=== PATIENT | male | born 1960 | race Caucasian/White ===

== ENCOUNTER 2020-01-29 18:10 | Inpatient (IN) | payer OTHER, SELFPAY ==
[2020-01-29 18:14] VITALS: BP 188/107; PULSE 88; RESP 18; TEMP 36.6; O2SAT 100
--- NOTE | 2020-01-29 18:53 | ED_ITS ---
HPI - Abdominal Pain General Chief Complaint: Abdominal Pain Stated Complaint: STOMACH PAIN Time Seen by Provider: 01/29/20 18:53 Source: patient Mode of arrival: Ambulatory Limitations: no limitations History of Present Illness HPI narrative: 59-year-old male comes to the emergency department with complaint of abdominal pain. He states it has been intermittent since Wednesday. He states it was worse Wednesday and has been slowly improving. He had several hours of pain, he felt feverish that evening. He had some nausea but no vomiting. He thought he might be constipated took some laxatives had a normal soft bowel movement that following morning on Wednesday. Followed by that he has been pushing a clear liquid diet and has had a liquidy watery stool. He has occasionally had a small amount of blood but states this is typical that he has known hemorrhoids. He has not had any melena. He has not had any further nausea or vomiting. He has not had any more fevers symptoms or chills. He has not had any cold cough or congestive type symptoms. No chest pain or shortness of breath. He had similar symptoms a couple times in the past. He also states that he has had the sensation that sometimes hard to urinate but is able to urinate. Sort of has intensity type symptom. No dysuria, frequency or or i ncontinence. Related Data Home Medications Medication Instructions Recorded Confirmed atorvastatin 40 mg PO DAILY 01/30/20 01/30/20 Allergies Allergy/AdvReac Type Severity Reaction Status Date / Time No Known Drug Allergies Allergy Verified 01/29/20 18:25 Review of Systems Review of Systems ROS Unobtainable: All systems reviewed & are unremarkable except as noted in HPI and below Patient History Social History (Updated 01/29/20 @ 19:05 by Carlene Up DO) household members: spouse Smoking Status: Current some day smoker alcohol intake: never substance use type: marijuana Smoking Status: Former smoker Alcohol type: other Substance Use Type: marijuana Exam Narrative Exam Narrative: GENERAL: Alert and oriented x three, thin, well-appearing male in mild distress. HEENT: Head normocephalic, atraumatic, EOMI, pupils reactive, face symmetric, moist mucous membranes NECK: Supple, full range of motion CARDIOVASCULAR: Regular rate and rhythm without murmurs, rubs or gallops. RESPIRATORY: Breath sounds equal bilaterally, no wheezes rales or rhonchi. ABDOMEN: Soft, very mild suprapubic tenderness. Normoactive bowel sounds all 4 quadrants. No guarding or rebound, rigidity, no mass, no hernia noted. : No CVA tenderness EXTREMITIES: Normal range of motion, no clubbing or edema. Neurovascularly intact NEUROLOGICAL: Cranial nerves II through XII grossly intact. Moving all extremities SKIN: Warm, dry, no petechiae, no rashes or lesions. Initial Vital Signs Initial Vital Signs: Vital Signs Temperature 97.9 F 01/29/20 18:14 Pulse Rate 88 01/29/20 18:14 Respiratory Rate 18 01/29/20 18:14 Blood Pressure 188/107 H 01/29/20 18:14 Pulse Oximetry 100 01/29/20 18:14 Course Orders Ordered: ED Orders 01/29/20 19:01 CT abdomen pelvis w con Stat 01/29/20 19:30 Complete Blood Count AUTO DIFF Stat Comprehensive Metabolic Panel Stat Lipase Stat Procalcitonin Stat Acetaminophen (Tylenol) 650 mg PO Q6HR PRN PRN Reason: Fever/Mild Pain (1-3) Sodium Chloride (Normal Saline 0.9%) 1,000 mls @ 125 mls/hr IV CONT RENA Last Infusion: 01/29/20 22:04 Dose: 125 mls/hr Documented by: Admin: 01/29/20 21:27 Dose: 125 mls/hr Documented by: YOSHI Influenza Virus Vaccine (Flu Vaccine) 0.5 ml IM .ONCE ONE Stop: 01/30/20 09:01 Morphine Sulfate (Morphine) 2 mg IV Q4HR PRN PRN Reason: Pain, Mild (1-3) Last Admin: 01/30/20 00:32 Dose: 2 mg Documented by: NATALIE Ondansetron HCl (Zofran) 4 mg IV Q4HR PRN PRN Reason: Nausea And Vomiting Discontinued Medications Piperacillin/Tazobactam/Dextrose (Zosyn) 3.375 gm in 50 mls @ 100 mls/hr IV NOW ONE Stop: 01/29/20 21:44 Last Infusion: 01/29/20 22:04 Dose: 0 mls/hr Documented by: Admin: 01/29/20 21:27 Dose: 100 mls/hr Documented by: YOSHI Vital Signs Vital signs: Vital Signs - 8 hr 01/29/20 18:14 Temperature 97.9 F Pulse Rate 88 Respiratory Rate 18 Blood Pressure 188/107 H Pulse Oximetry 100 MDM - Abdominal Pain Lab Data Attestation: I reviewed the patient's lab results. Result diagrams: 01/29/20 19:30 01/29/20 19:30 Labs: Lab Results 01/29/20 01/29/20 01/29/20 Range/Units 19:30 19:30 19:30 WBC 7.6 (4.5-11.0) X10^3/uL RBC 4.61 (4.5-5.9) X10^6/uL Hgb 14.2 (13.5-17.5) g/dL Hct 41.4 (41-53) % MCV 90.0 (80-100) fL MCH 30.9 (26-34) PG MCHC 34.4 (30-36) % RDW 13.6 (11.6-14.8) % Plt Count 402 H (150-400) X10^3/uL Neut % (Auto) 71.0 (50-75) % Lymph % (Auto) 18.3 L (25-40) % [place] % (Auto) 8.3 (3-14) % Eos % (Auto) 1.4 L (2-4) % Baso % (Auto) 1.0 (0-2) % Neut # (Auto) 5400 (5311-0092) /uL Lymph # (Auto) 1400 (6437-2007) /uL [place] # (Auto) 600 (0-900) /uL Eos # (Auto) 100 (0-450) /uL Baso # (Auto) 100 (0-100) /uL Sodium 138 (137-145) mmol/L Potassium 3.6 (3.4-5.1) mmol/L Chloride 103 (98-107) mmol/L Carbon Dioxide 28 (22-32) mmol/L BUN 7 L (9-20) mg/dL Creatinine 0.60 L (0.66-1.25) mg/dL Estimated GFR > 60.0 (>60) mL/min BUN/Creatinine Ratio 11.7 (6-22) Glucose 89 (70-100) mg/dL Calcium 9.7 (8.4-10.2) mg/dL Total Bilirubin 0.4 (0.2-1.3) mg/dL AST 28 (17-59) IU/L ALT 16 (<50) IU/L Alkaline Phosphatase 84 (38-126) U/L Total Protein 7.9 (6.3-8.2) g/dL Albumin 4.4 (3.5-5.0) g/dL Globulin 3.5 (1.7-4.1) g/dL Albumin/Globulin Ratio 1.3 (1.0-2.8) Lipase 38 (23-300) U/L Procalcitonin < 0.05 (<0.5) ng/mL Point of care testing: Urine Dip Bedside Urine Glucose Negative Bedside Urine Bilirubin - Negative Bedside Urine Ketone - Negative Urine Specific [place] 1.010 Bedside Urine Occult Blood - Negative Bedside Urine pH 6.0 Bedside Urine Protein - Negative Bedside Urine Urobilinogen - Negative Bedside Urine Nitrite - Negative Bedside Urine Leukocytes - Negative Esterase Imaging Data CT scan - abdomen/pelvis: Radiologist's Impression: [address] [address] [address] Scan Report Signed Patient: Roldan Cortés TMR#: [id number] : 2Acct:[id number] Age/Sex: 59 / MDate of Service: 01/29/20 Loc: ED Accession Number: [id number] Procedure: CT abdomen pelvis w con Ordering Provider: Carlene Up D.O. PROCEDURE: CT ABDOMEN PELVIS W CON INDICATIONS: lower abd pain, intermittent, water stools, ? diverticulitis TECHNIQUE: After the administration of intravenous contrast, 5 mm thick sections acquired from the diaphragm to the symphysis. 5 mm coronal and sagittal reformats were acquired. For radiation dose reduction, the following was used: automated exposure control, adjustment of mA and/or kV according to patient size. COMPARISON: None. FINDINGS: Image quality: Excellent. ABDOMEN: Lung bases: Lung bases are clear. Heart size is normal. Solid organs: Liver is normal in size and enhancement. Within the liver to apparent cysts are found, the larger of which is located within the left lateral hepatic segment superiorly measuring 1.3 cm and the smaller of which is subcentimeter within the right posterior hepatic segment inferiorly. No solid hepatic masses are seen. Gallbladder appears normal. Biliary system is non dilated. Pancreas enhances normally. Spleen is normal in size and enhancement. No adrenal nodules. Kidneys demonstrate normal size and enhancement, without hydronephrosis. Peritoneum and bowel: Bowel loops demonstrate normal wall thickness and caliber. No free fluid or air. Nodes and vessels: No retroperitoneal or mesenteric adenopathy by size criteria. Aorta and inferior vena cava are normal in size. Miscellaneous: No ventral hernias. PELVIS: Genitourinary: Bladder wall thickness is normal. Miscellaneous: No inguinal hernias or adenopathy. At the right lower quadrant a normal or abnormal appendix cannot be located but there is a inflammatory mass like structure in the expected position of the appendix. The cecum and ileocecal valve cannot be differentiated, and the terminal ileum appears mildly wall thickening. All of these findings may represent sequela of perforated appendicitis, and there is definite peritoneal inflammation and enhancement immediately below this area of abnormality the overall measures up to 6.9 cm transverse and 3.8 cm AP with a craniocaudad dimension also approximately 4 cm. Bones: No suspicious bony lesions. No vertebral body compression fractures. IMPRESSION: The right lower quadrant contains a finding that most likely is inflammatory in origin, and may represent sequela of perforated appendicitis. A normal or abnormal appendix could not be located. Correlation with laboratory tests is recommended to determine whether evidence of infection is present. The appearance conceivably could represent a manifestation of cecal or appendiceal carcinoma, however. Dictated by: Jaquan Armando M.D. on 01/29/2020 at 20:47 Approved by: Jaquan Armando M.D. on 01/29/2020 at 20:54 MDM Narrative Medical decision making narrative: Spoke with Dr. West, patient's labs are negative as well as urine. CT shows inflammatory masslike structure in the expected position of the appendix the terminal ileum shows mildly wall thickenin g. Could represent sequela of a perforated appendicitis and there is peritoneal inflammation enhancement in area of 6.9 cm x 3.8 x 4 cm. With patient's increased pain on Wednesday and then slowly improving this would fit. There is also discussion of possibly carcinoma on CT imaging. Discussed with Dr. West patient's labs do not show any clear signs of infection, urine is negative and CT findings. Plan to start IV antibiotics, Dr. West will see the patient in the hospital he asked for patient to be NPO after midnight as there is potential for surgery and will further evaluate patient. Discharge Plan Departure Patient Disposition: Admitted as Observation Clinical Impression: Perforated appendicitis Discharge Date/Time: 01/29/20 22:05 Admit Date/Time: 01/29/20 21:30 Admit Provider: Sammy West
--- NOTE | 2020-01-29 19:01 | DI.CT.S_ITS ---
PROCEDURE: CT ABDOMEN PELVIS W CON INDICATIONS: lower abd pain, intermittent, water stools, ? diverticulitis TECHNIQUE: After the administration of intravenous contrast, 5 mm thick sections acquired from the diaphragm to the symphysis. 5 mm coronal and sagittal reformats were acquired. For radiation dose reduction, the following was used: automated exposure control, adjustment of mA and/or kV according to patient size. COMPARISON: None. FINDINGS: Image quality: Excellent. ABDOMEN: Lung bases: Lung bases are clear. Heart size is normal. Solid organs: Liver is normal in size and enhancement. Within the liver to apparent cysts are found, the larger of which is located within the left lateral hepatic segment superiorly measuring 1.3 cm and the smaller of which is subcentimeter within the right posterior hepatic segment inferiorly. No solid hepatic masses are seen. Gallbladder appears normal. Biliary system is non dilated. Pancreas enhances normally. Spleen is normal in size and enhancement. No adrenal nodules. Kidneys demonstrate normal size and enhancement, without hydronephrosis. Peritoneum and bowel: Bowel loops demonstrate normal wall thickness and caliber. No free fluid or air. Nodes and vessels: No retroperitoneal or mesenteric adenopathy by size criteria. Aorta and inferior vena cava are normal in size. Miscellaneous: No ventral hernias. PELVIS: Genitourinary: Bladder wall thickness is normal. Miscellaneous: No inguinal hernias or adenopathy. At the right lower quadrant a normal or abnormal appendix cannot be located but there is a inflammatory mass like structure in the expected position of the appendix. The cecum and ileocecal valve cannot be differentiated, and the terminal ileum appears mildly wall thickening. All of these findings may represent sequela of perforated appendicitis, and there is definite peritoneal inflammation and enhancement immediately below this area of abnormality the overall measures up to 6.9 cm transverse and 3.8 cm AP with a craniocaudad dimension also approximately 4 cm. Bones: No suspicious bony lesions. No vertebral body compression fractures. IMPRESSION: The right lower quadrant contains a finding that most likely is inflammatory in origin, and may represent sequela of perforated appendicitis. A normal or abnormal appendix could not be located. Correlation with laboratory tests is recommended to determine whether evidence of infection is present. The appearance conceivably could represent a manifestation of cecal or appendiceal carcinoma, however. Dictated by: Jaquan Armando M.D. on 01/29/2020 at 20:47 Approved by: Jaquan Armando M.D. on 01/29/2020 at 20:54
[2020-01-29 19:38] LABS: Add Manual Diff / Slide Review NO; Basophils Absolute Auto 100 /uL (0-100); Eosinophils Absolute Auto 100 /uL (0-450); Eosinophils Percent Auto 1.4 % (2-4); Hematocrit 41.4 % (41-53); Hemoglobin 14.2 g/dL (13.5-17.5); Lymphocytes Absolute Auto 1400 /uL (1100-4500); Lymphocytes Percent Auto 18.3 % (25-40); Mean Corpuscular HGB Conc 34.4 % (30-36); Mean Corpuscular Hemoglobin 30.9 PG (26-34); Monocytes Absolute Auto 600 /uL (0-900); Monocytes Percent Auto 8.3 % (3-14); Neutrophils Absolute Auto 5400 /uL (1500-7000); Platelet Count 402 X10^3/uL (150-400); Red Blood Cell Count 4.61 X10^6/uL (4.5-5.9); Red Cell Distribution Width 13.6 % (11.6-14.8); White Blood Cell Count 7.6 X10^3/uL (4.5-11.0)
[2020-01-29 19:53] LABS: Alanine Aminotransferase 16 IU/L (<50); Albumin 4.4 g/dL (3.5-5.0); Albumin Globulin Ratio 1.3 (1.0-2.8); Alkaline Phosphatase 84 U/L (38-126); Aspartate Aminotransferase 28 IU/L (17-59); BUN Creatinine Ratio 11.7 (6-22); Bilirubin Total 0.4 mg/dL (0.2-1.3); Blood Urea Nitrogen 7 mg/dL (9-20); Calcium 9.7 mg/dL (8.4-10.2); Carbon Dioxide 28 mmol/L (22-32); Chloride 103 mmol/L (98-107); Estimated Glomerular Filt Rate > 60.0 mL/min (>60); Globulin 3.5 g/dL (1.7-4.1); Glucose 89 mg/dL (70-100); HEMOLYSIS < 15 (0-50); Lipase 38 U/L (23-300); Potassium 3.6 mmol/L (3.4-5.1); Sodium 138 mmol/L (137-145); Total Protein 7.9 g/dL (6.3-8.2)
[2020-01-29 20:10] LABS: Procalcitonin < 0.05 ng/mL (<0.5)
[2020-01-29] MEDS: PIPERACILLIN-TAZO 3.375 GM/50 ML FROZ.PIGGY IV (21:27)
[2020-01-29] MEDS: SODIUM CHLORIDE 0.9% 1,000 ML 125 ML IV (21:27)
[2020-01-29 21:33] VITALS: BP 179/87; PULSE 67; RESP 16; O2SAT 100
[2020-01-29 22:05] VITALS: BP 161/103; PULSE 74; RESP 18; TEMP 37.1; O2SAT 97
[2020-01-29 22:25] VITALS: BMI 25.0
--- NOTE | 2020-01-29 22:52 | PC.NURSE ---
Admit note: Roldan brought to rm 212 from ER via wheelchair, ambulatory, gait steady. He states he goes by Dewey. Patient actively walking in room & to BR to change into gown. He appears anxious but calm. BP 161/103, other VS stable. Will allow rest period before rechecking his BP. Dewey reports abdomen pain sometimes it is shooting pain, rating at 2/10. Said it was really bad when I had my episode last Wednesday but less pain since. Reports pain since last wednesday, no emesis. States last BM was yesterday, and it was liquid. Reports last real meal he had was last wednesday, since then taking in mostly liquids and occasional prune juice.
[2020-01-30] VITALS (22 sets, daily range): BP systolic 116–195; BP diastolic 64–105; PULSE 66–113; RESP 16–35; TEMP 36.2–37.3; O2SAT 94–100; BMI 25.0
--- NOTE | 2020-01-30 | PATH_ITS ---
[facility] Accession Number: [id number] . 01 Material submitted: . appendix - APPENDIX . 01 Clinical history: . STOMACH PAIN . 02 Diagnosis: Appendix, Appendectomy: Periappendicitis and serositis with reactive features. Please see comment. [facility] 02/05/2020 1330 Local . 02 Comment: The appendix is received intact, per gross examination, with multiple, separate pieces of inflamed adipose tissue. There is extensive periappendicitis and serositis, but no definite appendicitis in these sections (specimen entirely submitted). The features are suggestive of, but not diagnostic of, ruptured appendicitis. Other sources of an inflammatory process cannot be completely excluded. Please correlate this report with clinical and imaging findings. . Dr. West's office not accessible to report results as of 4:38 p.m. on 02-05-20. . 02 Electronically signed: . Pat Montiel MD, Pathologist NPI- [id number] . 01 Gross description: . Received in formalin, labeled appendix, is an intact appendix, (length-5.9 cm, diameter-0.7 cm) with bahena-pink smooth and shiny serosa and attached mesoappendix (1.7 cm in depth). The resection margin is received opened. The lumen contains clear colorless tacky fluid. The wall is up to 0.3 cm thick. No nodules, masses or lesions are identified. Also, submitted are multiple pieces of bahena-yellow rubbery exudate covered adipose tissue (5.0 x 2.3 x 1.5 cm in aggregate). The resection margin is inked purple. Section code: (A1) resection margin en face and three office machines sales representative serial sections; (A2) three additional office machines sales representative serial sections; (A3) one-half of the bivalved tip; (A4) separate adipose tissue, office machines sales representative. Additional sections: (A5-A7) appendix; (A8-A16) adipose tissue. Specimen is now entirely submitted. ([id number]) ([id number]) /LIZA 02/01/2020 1711 Local . 02 Pathologist provided ICD-10: R10.9 . 02 CPT . 301401 [facility]formed at: [facility] [address] [id number] MD Bulmaro Mcnair MD Phone: [phone] Performed at: [address] [id number] MD Aleta Caputo MD Phone: [phone]
[2020-01-30] MEDS: MORPHINE 2 MG/ML INJ IV (00:32)
--- NOTE | 2020-01-30 02:03 | PC.NURSE ---
Patient has been NPO since admission. VSS, hypertensive. Patient has had abdominal pain 7/10 and medicated w/ PRN morphine, no complaints of nausea.
[2020-01-30] MEDS: SODIUM CHLORIDE 0.9% 1,000 ML 125 ML IV (04:53)
--- NOTE | 2020-01-30 09:02 | P.HP_ITS ---
History of Present Illness History of Present Illness Date Patient Seen: 01/30/20 Time Patient Seen: 09:02 Chief complaint: STOMACH PAIN Narrative: 59-year-old white male who has had lower abdominal pain for a week. He had fever and chills at the onset of this with nausea and no vomiting. He has had some loose stools. His also has some difficulty urinating. He started himself on amoxicillin 4 days ago. He came to the emergency room last night with increasing pain and some fever. CT scan was done which shows likely an inflammatory mass in the right lower quadrant. We cannot see the appendix. We cannot see the tip of the cecum. This does not appear to be an abscess. Likely it is an inflammatory mass related to a ruptured appendix. However he is 59 and is entitled to have carcinoma the cecum or carcinoma of the appendix. Patient History Family & Social History Social History: household members spouse Prior Living Arrangements House Safety & Behavioral: Feels Safe in Current Yes Environment Been Physically Hurt or No Threatened By a Person Suicidal Ideation Description None Tobacco & Substance use: Tobacco type cigarettes Smoking Status Current some day smoker alcohol intake never Substance Use Type marijuana Meds Home Medications and Allergies Home Medications Medication Instructions Recorded Confirmed Type atorvastatin 40 mg PO DAILY 01/30/20 01/30/20 History Allergies Allergy/AdvReac Type Severity Reaction Status Date / Time No Known Drug Allergies Allergy Verified 01/29/20 18:25 Review of Systems Review of Systems ROS: Yes All systems reviewed with the patient and are negative except as otherwise documented Exam Vital Signs (past 8 hours): - 01/30/20 04:50 01/30/20 07:45 Temperature 98.2 F 99.1 F Pulse Rate 70 67 Respiratory Rate 20 16 Blood Pressure 142/87 H 146/91 H Pulse Oximetry 98 99 Oxygen Delivery Method Room Air Oxygen Flow Rate 0 Narrative Exam Narrative: Slightly febrile at 99.1 alert and oriented. Complaining of lower abdominal discomfort. Ears nose and throat are normal Neck no adenopathy Lungs clear with no rales or wheezes Heart regular rhythm no murmur Abdomen not distended actually fairly soft. There is a suggestion of a mass in the right lower quadrant extending medially in the right pubic ramus area. There is local tenderness in that area. Extremities are normal Neurologic normal Objective Labs Result Diagrams: 01/29/20 19:30 01/29/20 19:30 Labs: Laboratory Results - last 24 hr 01/29/20 01/29/20 01/29/20 19:30 19:30 19:30 WBC 7.6 RBC 4.61 Hgb 14.2 Hct 41.4 MCV 90.0 MCH 30.9 MCHC 34.4 RDW 13.6 Plt Count 402 H Neut % (Auto) 71.0 Lymph % (Auto) 18.3 L [place] % (Auto) 8.3 Eos % (Auto) 1.4 L Baso % (Auto) 1.0 Neut # (Auto) 5400 Lymph # (Auto) 1400 [place] # (Auto) 600 Eos # (Auto) 100 Baso # (Auto) 100 Sodium 138 Potassium 3.6 Chloride 103 Carbon Dioxide 28 BUN 7 L Creatinine 0.60 L Estimated GFR > 60.0 BUN/Creatinine Ratio 11.7 Glucose 89 Calcium 9.7 Total Bilirubin 0.4 AST 28 ALT 16 Alkaline Phosphatase 84 Total Protein 7.9 Albumin 4.4 Globulin 3.5 Albumin/Globulin Ratio 1.3 Lipase 38 Procalcitonin < 0.05 Assessment & Plan Assessment & Plan narrative: I suspect patient had a ruptured appendix a week ago and now has an inflammatory mass in the right lower quadrant. Of course carcinoma cannot be excluded. This is not clearly an abscess. I will explore his abdomen today remove the mass possibly resect his colon. Patient understands and agrees with this plan and has no unanswered questions. Quality VTE Deep Vein Thrombosis/Pulmonary Embolism Present on Admission: No
--- NOTE | 2020-01-30 09:18 | CM.DANOTE ---
DCP: Case received, EMR reviewed and met with patient. Introduced self and role. Was able to meet with patient and obtain information regarding baseline activity, health, and living situation. DCP assessment completed with information currently available. Patient is a 59 year old male who admitted yesterday evening to the care of the hospitalist/surgical team. PCP: None Payer: confirmed: [facility]. Patient came to the hospital via private vehicle, secondary to abdominal pain. Patient holds currentl diagnosis of diverticulitis, and is scheduled to have surgery at approximately 11:00. Dr. Franco gave this case operator updated, and also relayed that patient should be inpatient, and should be here for a couple of days. Updated Bulmaro in UR. Met briefly with patient. He is alert and oriented. 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 He is independent. Asked him if he has a current provider, and stated that he does not. 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 P: DCP to continue to follow. Anticipate that patient should be here for a couple of days, before going home. May need resources at discharge for primary care provider information in the [place] area. Linda Paul, RN/It Systems Engineer
[2020-01-30 09:46] LABS: Add Manual Diff / Slide Review NO; Basophils Absolute Auto 100 /uL (0-100); Basophils Percent Auto 0.9 % (0-2); Eosinophils Absolute Auto 100 /uL (0-450); Eosinophils Percent Auto 1.7 % (2-4); Hemoglobin 13.9 g/dL (13.5-17.5); Lymphocytes Absolute Auto 1200 /uL (1100-4500); Lymphocytes Percent Auto 14.8 % (25-40); Mean Corpuscular Hemoglobin 30.9 PG (26-34); Mean Corpuscular Volume 90.9 fL (80-100); Monocytes Absolute Auto 600 /uL (0-900); Monocytes Percent Auto 6.8 % (3-14); Neutrophils Absolute Auto 6400 /uL (1500-7000); Neutrophils Percent Auto 75.8 % (50-75); Platelet Count 429 X10^3/uL (150-400); Red Blood Cell Count 4.51 X10^6/uL (4.5-5.9); Red Cell Distribution Width 13.7 % (11.6-14.8); White Blood Cell Count 8.4 X10^3/uL (4.5-11.0)
[2020-01-30 09:57] LABS: Alanine Aminotransferase 15 IU/L (<50); Albumin 4.1 g/dL (3.5-5.0); Albumin Globulin Ratio 1.2 (1.0-2.8); Alkaline Phosphatase 75 U/L (38-126); Aspartate Aminotransferase 23 IU/L (17-59); BUN Creatinine Ratio 10.3 (6-22); Bilirubin Total 0.5 mg/dL (0.2-1.3); Blood Urea Nitrogen 7 mg/dL (9-20); Calcium 9.3 mg/dL (8.4-10.2); Carbon Dioxide 27 mmol/L (22-32); Chloride 104 mmol/L (98-107); Estimated Glomerular Filt Rate > 60.0 mL/min (>60); Globulin 3.3 g/dL (1.7-4.1); Glucose 96 mg/dL (70-100); HEMOLYSIS < 15 (0-50); Potassium 4.1 mmol/L (3.4-5.1); Sodium 139 mmol/L (137-145); Total Protein 7.4 g/dL (6.3-8.2)
[2020-01-30 10:28] LABS: Carcinoembryonic Antigen 1.4 ng/mL (0.1-3.0)
[2020-01-30] MEDS: LACTATED RINGERS 1,000 ML 42 ML IV ×2 (11:35→13:16)
[2020-01-30] MEDS: PIPERACILLIN-TAZO 3.375 GM/50 ML FROZ.PIGGY IV ×2 (11:35→18:13)
--- NOTE | 2020-01-30 12:09 | SUR.OPER ---
Supine on padded OR bed, head on pillow, arms secured on padded arm boards at <90 degrees abduction, legs uncrossed, safety belt at thigh.
[2020-01-30] MEDS: SODIUM CHLORIDE IRRIG SOLUTION 1,000 ML, BACITRACIN 50,000 UNIT IRR (12:29)
[2020-01-30] MEDS: NEOMYCIN/POLYMYX/BACITRAC 28.35 GM OINT 3 APPLIC TOP (12:32)
[2020-01-30] MEDS: fentaNYL 100 MCG/2 ML INJ IV (13:01)
[2020-01-30] MEDS: HYDROMORPHONE 2 MG INJ IV ×8 (13:02→14:04)
--- NOTE | 2020-01-30 13:03 | P.PCN_ITS ---
Procedures Date/Time Date of procedure: 01/30/20 Time of procedure: 12:50 General Procedure description: Ultrasound guided bilateral TAP block for low laparotomy for ex-lap. Discussed risks and benefits of procedure with patient in pre-op pr ior to surgery. Procedure was performed while patient was still anesthetized and intubated under ASA monitoring. After sterile prep with chlorhexidine, transversus abdominus and internal oblique layers of abdomen were identified with a sterile covered US probe about 1-2 inches superior to anterior superior iliac crest. Using a 100mm pajunk needle under US guidance, the needle tip was directed into the fascia layer between TA and IO muscles. Once placement was confirmed wit 1mL injection of 0.25% bupivacaine with epi, a total of 30mL of was injected for the right abdominal site. The same procedure was repeated for the left abdominal TAP site. No complications during procedure. Upper photo: Right abdominal wall TAP site, Lower photo: Left abdominal wall TAP site
--- NOTE | 2020-01-30 13:05 | SUR.PHASEI ---
Arrived in PACU moaning, moving about in the bed, c/o pain. Resp rapid, hypertensive, will treat for pain first per anesthesia.
--- NOTE | 2020-01-30 13:15 | PM.OP.1 ---
Operative Date/Time/Diagnoses Date of procedure: 01/30/20 Time of procedure: 13:00 Pre-op diagnosis: Ruptured appendix with pelvic abscess and phlegmon Post-op diagnosis: same Procedure & Clinicians Procedure: exploratory laparotomy evacuation of pelvic abscess and phlegmon and appendectomy Same procedure as scheduled: Yes Surgeon: Sammy West Click Yes if Unassisted: Yes Anesthesia Type: General Operative Notes Findings: patient had a large pelvic phlegmon with the cecum actually fused to the sigmoid colon with the appendix and omentum creating a mass in the pelvis. There was a scant amount of free pus within the phlegmon which was cultured there was some thickening of the sigmoid colon which could represent diverticulitis but could also represent adjacent inflammatory changes from acute appendicitis. This was difficult to discern. Closure Type: primary Specimen(s): other ( Peritoneal cultures and appendix) Estimated Blood Loss (mL): 50 Blood products transfused: none Procedure in detail: the patient was properly identified during surgical pause he was prepped and draped in a sterile fashion with exposure of the low abdomen. A midline incision was made from the umbilicus down to the symphysis pubis. The abdomen explored in the mid pelvis there was a mass created by either a ruptured appendix or sigmoid diverticulitis. I favor the diagnosis of a ruptured appendix. This mass was taken apart removing a segment of omentum with it identifying the cecum and appendix which was inflamed. I removed the appendix dividing the mesoappendix between clamps ligating the appendiceal vessels with 2 0 Vicryl ties for excellent hemostasis. The base the appendix was divided over a TA 30? staple line and the appendix removed. Cultures were taken of the phlegmon and scant amount of pus located in the midst of this inflammatory mass. The sigmoid colon itself was attached to the mass and was inflamed as well. Once the mass was dispersed I irrigated the pelvis with copious bacitracin saline and aspirated dry there was no bleeding or any further purulence. A placed a Herbert-Pelaez drain through a left lower quadrant incision with the tip of the drain in the retrorectal space. The drain was sutured to the skin with fine nylon. Appendectomy site inspected there was no leakage there was a secure staple line over the base of the appendix. The cecum returned to its anatomic position there was no bleeding the omentum placed over the pelvic structures and the midline fascia closed with 1. PDS. The subcu was irrigated with antibiotic saline and aspirated dry and the skin was stapled sterile dressings applied the procedure was very well tolerated. Complications: none Post-operative Condition: stable Disposition: PACU
--- NOTE | 2020-01-30 13:19 | SUR.PHASEI ---
Addendum entered by Caroline Ravi R.N. 01/30/20 13:21: Taking ice chips/no nause Original Note: 1315 Dr. Haney here, checked on patient, aware of current resp, heart rate, and BP. Spoke to patient, told him about the block that he had done and how long it would take to be effective, and that the block may not be completely effective. 1320 Patient lying on left side, no longer squirming, eyes closed.
--- NOTE | 2020-01-30 13:36 | SUR.PHASEI ---
Medicated for pain, states it is 1110. Reminded him that at a 10, he'd be passed out. Stated, OK, then, a 9 Appears to be in less pain, lying still, grimace occasionally, awake, BP coming down. Tolerating ice chips well. Dr. West checked on patient.
--- NOTE | 2020-01-30 13:50 | SUR.PHASEI ---
1344 6th dose of dilaudid given. having difficulty with the MAR, scanning multiple times, acts like it has accepted the drug and then doesn't show the dose. Patient continues to rate his pain at an 8 or 9, but his body language indicates that he is doing much better. Pt is lying still, resp rate continues to be elevated, sat in upper 90s, BP improved, Occasional deep sigh as opposed to a moan. Tolerating ice chips well. Resp even and regular, skin warm and dry.+
[2020-01-30] MEDS: OXYCODONE/ACETAMINOPHEN 5/325 TABLET 1 TAB PO (14:12)
[2020-01-30] MEDS: LACTATED RINGERS 1,000 ML 100 ML IV (15:21)
[2020-01-30] MEDS: TRAMADOL 50 MG TABLET PO (17:17)
[2020-01-30] MEDS: SIMETHICONE 80 MG TABLET PO ×2 (17:17→21:34)
[2020-01-30] MEDS: KETOROLAC 30 MG/ML VIAL IV (17:19)
[2020-01-30] MEDS: HYDROMORPHONE 0.5 MG INJ IV (18:16)
[2020-01-30] MEDS: raNITIdine 150 MG CAPSULE PO (21:34)
[2020-01-30] MEDS: GABAPENTIN 300 MG CAPSULE PO (21:34)
--- NOTE | 2020-01-30 21:38 | PC.NURSE ---
Pt c/o of 'fullness of the bladder MD notified by other RN Order for I/O cath I/O cath done w/550cc alexandra urine returned. Pt states he feel better. Abdomen softer to palpate. Call light w/in reach, family in room.
--- NOTE | 2020-01-30 22:35 | PC.NURSE ---
Evening note: Roldan awake, Ox3 and to situation tonight, face pale, generalized skin color is dusky. Appears fatigued. Reports feels cool and then sweaty/clammy tonight. Afebrile. He is hesitant to reposition, staff reinforcing importance of movement, assisting him to side lie on left. VS remain stable. Reported pain not relieved after taking tramadol & toradol, but reported much better after IV Dilaudid given, has been able to doze since. Encouraged him to deep breathe 10 x's every hour, pneumonia prevention, etc. Shadow drainage within previous pen jeronimo to distal end of drsg. SULLY active with 525 ml total bright red sero-sang output from [id number]. When EDITING COMPUTER PUBLISHER in room to assist patient to stand at side of bed, she emptied another 100 ml sero-sang out of SULLY post position change. Patient's abdomen is tender, distended but not hard. I notified Dr West immediately of SULLY drainage, VS, palor and pt not able to void, patient's status. He ordered to do in & out cath if retention >400 ml, increase IVF rate to 150 and to order CBC for the morning. Bladder scan = 385, patient reported abdomen uncomfortable with urge to void. In & out cath done with 550 ml clear alexandra urine output. Fall precautions in place, SCD's on bilaterally. decided to spend night on window bench tonight. Patient & spouse instructed to call if they have any needs/concerns.
[2020-01-30] MEDS: LACTATED RINGERS 1,000 ML 150 ML IV (23:37)
[2020-01-31] MEDS: PIPERACILLIN-TAZO 3.375 GM/50 ML FROZ.PIGGY IV ×4 (01:32→19:21)
[2020-01-31] MEDS: KETOROLAC 30 MG/ML VIAL IV (02:22)
[2020-01-31] MEDS: HYDROMORPHONE 0.5 MG INJ IV ×2 (03:58→22:08)
[2020-01-31 05:00] VITALS: BP 124/77; PULSE 85; RESP 16; TEMP 36.5; O2SAT 100
[2020-01-31] MEDS: LACTATED RINGERS 1,000 ML 150 ML IV (05:50)
[2020-01-31 06:31] LABS: Add Manual Diff / Slide Review NO; Basophils Absolute Auto 0 /uL (0-100); Basophils Percent Auto 0.2 % (0-2); Eosinophils Absolute Auto 0 /uL (0-450); Hematocrit 26.8 % (41-53); Hemoglobin 9.3 g/dL (13.5-17.5); Lymphocytes Absolute Auto 1100 /uL (1100-4500); Lymphocytes Percent Auto 7.7 % (25-40); Mean Corpuscular HGB Conc 34.7 % (30-36); Mean Corpuscular Hemoglobin 30.9 PG (26-34); Mean Corpuscular Volume 89.2 fL (80-100); Monocytes Absolute Auto 1200 /uL (0-900); Monocytes Percent Auto 8.8 % (3-14); Neutrophils Absolute Auto 11400 /uL (1500-7000); Neutrophils Percent Auto 83.3 % (50-75); Platelet Count 358 X10^3/uL (150-400); Red Cell Distribution Width 13.8 % (11.6-14.8); White Blood Cell Count 13.7 X10^3/uL (4.5-11.0)
--- NOTE | 2020-01-31 06:42 | PC.NURSE ---
Pt alert and oriented x4. Midline bulky gauze incision with moderate drainage, marked at post op and no increased drainage since. Pt complains of abdomen pain throughout the night resolved with giving IV dilaudid. Pt also unable to void throughout the night, encouraged pt to drink and massage bladder. Bladder scan done showing 200ml. Pt complains of abdomen distention. Straight cath performed. 200ml aleaxndra colored urine drained. WCTM.
--- NOTE | 2020-01-31 09:02 | PM.PN.1 ---
Subjective Subjective Date Patient Seen: 01/31/20 Time Patient Seen: 09:02 Interval history: Patient is approximately 24 hours postop exploratory laparotomy for an inflammatory phlegmon mass related to a ruptured appendix. He has had an appendectomy and an extirpation of the mass by disrupting the abscess formation. He is feeling fairly well today up walking in the room his main complaint is inability to void and he is required to straight cath events last night Exam Vital Signs (past 8 hours): - 01/31/20 05:00 Temperature 97.7 F Pulse Rate 85 Respiratory Rate 16 Blood Pressure 124/77 Pulse Oximetry 100 Oxygen Delivery Method Room Air Oxygen Flow Rate 0 Narrative Exam Narrative: Vital signs are stable he is alert oriented main complaint is inability to void. Patient is passing flatus Lungs are clear Abdomen mildly distended Dressing had a small amount of serosanguineous drainage in the inferior aspect this morning Herbert-Pelaez drain has put out a fair amount of serosanguineous fluid and this is slowing with 75 cc during the last shift Objective Labs Result Diagrams: 01/31/20 05:58 01/30/20 09:37 Labs: Laboratory Results - last 24 hr 01/30/20 01/30/20 01/31/20 09:37 09:37 05:58 WBC 8.4 13.7 H D RBC 4.51 3.00 L Hgb 13.9 9.3 L Hct 41.0 26.8 L MCV 90.9 89.2 MCH 30.9 30.9 MCHC 34.0 34.7 RDW 13.7 13.8 Plt Count 429 H 358 Neut % (Auto) 75.8 H 83.3 H Lymph % (Auto) 14.8 L 7.7 L [place] % (Auto) 6.8 8.8 Eos % (Auto) 1.7 L 0.0 L Baso % (Auto) 0.9 0.2 Neut # (Auto) 6400 29510 H Lymph # (Auto) 1200 1100 [place] # (Auto) 600 1200 H Eos # (Auto) 100 0 Baso # (Auto) 100 0 Sodium 139 Potassium 4.1 Chloride 104 Carbon Dioxide 27 BUN 7 L Creatinine 0.68 Estimated GFR > 60.0 BUN/Creatinine Ratio 10.3 Glucose 96 Calcium 9.3 Total Bilirubin 0.5 AST 23 ALT 15 Alkaline Phosphatase 75 Total Protein 7.4 Albumin 4.1 Globulin 3.3 Albumin/Globulin Ratio 1.2 Carcinoembryonic Ag 1.4 Assessment & Plan Assessment & Plan narrative: Patient is stable recovering. White count is up to 13 7. Hemoglobin is fallen to 9.3. Patient is afebrile. Patient appears to be recovering from his procedure in a normal fashion although there is more drainage than I would have expected. With a drop in his hemoglobin I have discontinued use of Toradol and Lovenox. Patient is ambulating and still has is sequential compression devices in place. We'll rely on that for his DVT prophylaxis. Will continue his IV Zosyn therapy. Because of his inability to void we will place a Love catheter. Quality VTE Deep Vein Thrombosis/Pulmonary Embolism Present on Admission: No
[2020-01-31 09:44] VITALS: BP 162/88; PULSE 60; RESP 16; TEMP 36.9; O2SAT 98
[2020-01-31] MEDS: GABAPENTIN 300 MG CAPSULE PO ×2 (10:55→21:06)
[2020-01-31] MEDS: raNITIdine 150 MG CAPSULE PO ×2 (10:55→21:06)
[2020-01-31] MEDS: OXYCODONE/ACETAMINOPHEN 5/325 TABLET 1 TAB PO ×4 (10:55→23:20)
[2020-01-31] MEDS: SIMETHICONE 80 MG TABLET PO ×4 (10:55→21:06)
[2020-01-31 11:05] VITALS: BP 143/84; PULSE 62; RESP 16; TEMP 36.8; O2SAT 98
[2020-01-31] MEDS: LIDOCAINE 2% (UROJET) 5 ML GEL TOP (11:36)
[2020-01-31 15:15] VITALS: BP 138/82; PULSE 79; RESP 16; TEMP 37; O2SAT 100
[2020-01-31] MEDS: LACTATED RINGERS 1,000 ML 75 ML IV (16:57)
[2020-01-31 19:40] VITALS: BP 143/90; PULSE 82; RESP 16; TEMP 37.4; O2SAT 99
[2020-01-31 23:40] VITALS: BP 141/80; PULSE 83; RESP 16; TEMP 36.5; O2SAT 99
[2020-02-01] MEDS: PIPERACILLIN-TAZO 3.375 GM/50 ML FROZ.PIGGY IV ×4 (00:32→22:41)
[2020-02-01] MEDS: OXYCODONE/ACETAMINOPHEN 5/325 TABLET 1 TAB PO ×4 (03:17→20:13)
[2020-02-01] MEDS: LACTATED RINGERS 1,000 ML 75 ML IV ×2 (03:18→20:13)
[2020-02-01 04:10] VITALS: BP 132/77; PULSE 80; RESP 16; TEMP 36.6; O2SAT 99
[2020-02-01] MEDS: HYDROMORPHONE 0.5 MG INJ IV ×2 (04:58→10:24)
[2020-02-01 06:50] LABS: Add Manual Diff / Slide Review NO; Basophils Absolute Auto 0 /uL (0-100); Basophils Percent Auto 0.5 % (0-2); Eosinophils Absolute Auto 0 /uL (0-450); Eosinophils Percent Auto 0.4 % (2-4); Hematocrit 24.4 % (41-53); Hemoglobin 8.4 g/dL (13.5-17.5); Lymphocytes Absolute Auto 1500 /uL (1100-4500); Lymphocytes Percent Auto 15.4 % (25-40); Mean Corpuscular HGB Conc 34.7 % (30-36); Mean Corpuscular Hemoglobin 31.1 PG (26-34); Mean Corpuscular Volume 89.9 fL (80-100); Monocytes Absolute Auto 800 /uL (0-900); Monocytes Percent Auto 8.3 % (3-14); Neutrophils Absolute Auto 7400 /uL (1500-7000); Neutrophils Percent Auto 75.4 % (50-75); Platelet Count 344 X10^3/uL (150-400); Red Blood Cell Count 2.71 X10^6/uL (4.5-5.9); Red Cell Distribution Width 13.9 % (11.6-14.8); White Blood Cell Count 9.8 X10^3/uL (4.5-11.0)
[2020-02-01] MEDS: ONDANSETRON 4 MG/2 ML INJ IV (07:53)
--- NOTE | 2020-02-01 07:55 | P.PN_ITS ---
Subjective Subjective Date Patient Seen: 02/01/20 Time Patient Seen: 07:55 Interval history: Patient is 2 days post drainage of a pelvic abscess and disruption of a pelvic phlegmon within appendectomy. Subjectively the patient is feeling better daily but still complaining of fair amount of lower abdominal pain. He is passing flatus no bowel movement. No nausea or vomiting at time he is tolerating a soft diet. Exam Vital Signs (past 8 hours): - 02/01/20 04:10 Temperature 97.9 F Pulse Rate 80 Respiratory Rate 16 Blood Pressure 132/77 Pulse Oximetry 99 Oxygen Delivery Method Room Air Oxygen Flow Rate 0 Narrative Exam Narrative: Patient is afebrile lying in bed with moderate lower abdominal pain. Abdomen is soft Wound is healing without signs of infection Herbert Pelaez drain is putting out serosanguineous fluid approximately 50 cc a shift. This is not purulence. Objective Labs Result Diagrams: 02/01/20 05:59 01/30/20 09:37 Labs: Laboratory Results - last 24 hr 02/01/20 05:59 WBC 9.8 RBC 2.71 L Hgb 8.4 L Hct 24.4 L MCV 89.9 MCH 31.1 MCHC 34.7 RDW 13.9 Plt Count 344 Neut % (Auto) 75.4 H Lymph % (Auto) 15.4 L [place] % (Auto) 8.3 Eos % (Auto) 0.4 L Baso % (Auto) 0.5 Neut # (Auto) 7400 H Lymph # (Auto) 1500 [place] # (Auto) 800 Eos # (Auto) 0 Baso # (Auto) 0 Assessment & Plan Assessment & Plan narrative: Patient is slowly recovering from treatment for a ruptured appendix with pelvic abscess phlegmon. Hemoglobin still drifting downward today it is 8.4. White count is now normal at 9800. I will give the patient 1 dose of intravenous iron. Continue IV antibiotic therapy. Will leave the drain in place. Is not eating much. Continue the soft diet. Quality VTE Deep Vein Thrombosis/Pulmonary Embolism Present on Admission: No
[2020-02-01 08:13] VITALS: BP 126/83; PULSE 75; RESP 16; TEMP 35.9; O2SAT 98
[2020-02-01 09:10] VITALS: PULSE 68; O2SAT 98
[2020-02-01] MEDS: IRON SUCROSE 200 MG in SODIUM CHLORIDE 0.9% 100 ML 220 ML IV (10:16)
[2020-02-01] MEDS: raNITIdine 150 MG CAPSULE PO ×2 (10:17→20:12)
[2020-02-01] MEDS: GABAPENTIN 300 MG CAPSULE PO ×2 (10:17→20:12)
[2020-02-01] MEDS: SIMETHICONE 80 MG TABLET PO ×4 (10:18→22:40)
[2020-02-01 12:45] VITALS: BP 131/78; PULSE 81; RESP 16; TEMP 36.8; O2SAT 100
[2020-02-01 15:30] VITALS: BP 122/73; PULSE 75; RESP 17; TEMP 36.8; O2SAT 99
--- NOTE | 2020-02-01 16:02 | P.PN_ITS ---
Subjective Subjective Date Patient Seen: 02/01/20 Time Patient Seen: 16:02 Interval history: Afternoon rounds patient has been doing a fair amount of ambulating today passing flatus no nausea vomiting continues to have serosanguineous drainage from the Herbert-Pelaez drain Exam Vital Signs (past 8 hours): - 02/01/20 08:13 02/01/20 09:10 02/01/20 12:45 Temperature 96.7 F L 98.3 F Pulse Rate 75 68 81 Respiratory Rate 16 16 Blood Pressure 126/83 131/78 Pulse Oximetry 98 98 100 02/01/20 15:30 Temperature 98.3 F Pulse Rate 75 Respiratory Rate 17 Blood Pressure 122/73 Pulse Oximetry 99 Oxygen Delivery Method Room Air Oxygen Flow Rate 0 Narrative Exam Narrative: Patient is afebrile complaining of moderate incisional pain Abdomen is fairly soft the incision is healing without signs of infection there is no overt bleeding from the wound. Herbert-Pelaez drain is putting out a fair amount still of serosanguineous fluid definitely bloody but less so than it was earlier today. Objective Labs Result Diagrams: 02/01/20 05:59 01/30/20 09:37 Labs: Laboratory Results - last 24 hr 02/01/20 05:59 WBC 9.8 RBC 2.71 L Hgb 8.4 L Hct 24.4 L MCV 89.9 MCH 31.1 MCHC 34.7 RDW 13.9 Plt Count 344 Neut % (Auto) 75.4 H Lymph % (Auto) 15.4 L [place] % (Auto) 8.3 Eos % (Auto) 0.4 L Baso % (Auto) 0.5 Neut # (Auto) 7400 H Lymph # (Auto) 1500 [place] # (Auto) 800 Eos # (Auto) 0 Baso # (Auto) 0 Assessment & Plan Assessment & Plan narrative: Patient appears to be recovering from drainage of a pelvic abscess and disruption of a phlegmon from a ruptured appendix. I am mildly concerned because of the serosanguineous nature of the drainage. Because of that I have ordered factor 8 factor 9 levels and INR and PTT. Patient is a heavy aspirin user however denies taking any [id number]-[id number] herbals which may contribute to postoperative bleeding. Patient is receiving intravenous iron today. He is certainly stable. Quality VTE Deep Vein Thrombosis/Pulmonary Embolism Present on Admission: No
--- NOTE | 2020-02-01 16:22 | PC.NURSE ---
mild to moderate pain, PO pain meds; slight nausea in AM, IV Zofran; Pt ambulated in hallway with 's SBA X2; Drsg saturated by end of shift and copious sero-sanguineous to SULLY rock MD notified; abdomen tender and distended, BTs active
[2020-02-01 16:32] LABS: INR 1.1 (0.9-1.3); Prothrombin Time 12.8 SECONDS (10.1-12.7)
[2020-02-01 20:00] VITALS: BP 135/71; PULSE 76; RESP 18; TEMP 37.3
[2020-02-02] MEDS: OXYCODONE/ACETAMINOPHEN 5/325 TABLET 1 TAB PO ×3 (00:08→09:06)
[2020-02-02 00:20] VITALS: BP 147/93; PULSE 85; RESP 19; TEMP 37.6; O2SAT 96
[2020-02-02] MEDS: PIPERACILLIN-TAZO 3.375 GM/50 ML FROZ.PIGGY IV ×4 (04:19→23:25)
[2020-02-02 04:20] VITALS: BP 146/81; PULSE 77; RESP 19; TEMP 37; O2SAT 97
[2020-02-02 06:27] LABS: Add Manual Diff / Slide Review NO; Basophils Absolute Auto 100 /uL (0-100); Basophils Percent Auto 0.6 % (0-2); Eosinophils Absolute Auto 200 /uL (0-450); Hematocrit 24.7 % (41-53); Hemoglobin 8.5 g/dL (13.5-17.5); Lymphocytes Absolute Auto 1400 /uL (1100-4500); Lymphocytes Percent Auto 15.7 % (25-40); Mean Corpuscular HGB Conc 34.4 % (30-36); Mean Corpuscular Hemoglobin 31.2 PG (26-34); Mean Corpuscular Volume 90.6 fL (80-100); Monocytes Absolute Auto 900 /uL (0-900); Monocytes Percent Auto 9.3 % (3-14); Neutrophils Absolute Auto 6600 /uL (1500-7000); Neutrophils Percent Auto 72.4 % (50-75); Platelet Count 374 X10^3/uL (150-400); Red Blood Cell Count 2.72 X10^6/uL (4.5-5.9); Red Cell Distribution Width 14.1 % (11.6-14.8); White Blood Cell Count 9.1 X10^3/uL (4.5-11.0)
[2020-02-02 08:11] VITALS: BP 141/86; PULSE 94; RESP 16; TEMP 37; O2SAT 97
[2020-02-02] MEDS: raNITIdine 150 MG CAPSULE PO ×2 (09:06→19:57)
[2020-02-02] MEDS: GABAPENTIN 300 MG CAPSULE PO ×2 (09:06→19:57)
[2020-02-02] MEDS: SIMETHICONE 80 MG TABLET PO ×4 (09:06→19:57)
--- NOTE | 2020-02-02 10:08 | P.PN_ITS ---
Subjective Subjective Date Patient Seen: 02/02/20 Time Patient Seen: 10:08 Interval history: Patient is 3 days postop drainage of a pelvic abscess and disruption of a pelvic phlegmon. Today he is feeling much better is ambulating fairly well passing flatus no bowel movement yet. Has the expected amount of incisional discomfort. No nausea or vomiting. Exam Vital Signs (past 8 hours): - 02/02/20 04:20 02/02/20 08:11 Temperature 98.6 F 98.6 F Pulse Rate 77 94 H Respiratory Rate 19 16 Blood Pressure 146/81 H 141/86 H Pulse Oximetry 97 97 Oxygen Delivery Method Room Air Oxygen Flow Rate 0 Narrative Exam Narrative: Patient is afebrile. Resting comfortably in bed and is alert and oriented Abdomen is soft with normal incisional tenderness. Herbert-Pelaez drain still producing serosanguineous fluid. This is diminishing slowly. Objective Labs Result Diagrams: 02/02/20 05:58 01/30/20 09:37 Labs: Laboratory Results - last 24 hr 02/01/20 02/02/20 15:37 05:58 WBC 9.1 RBC 2.72 L Hgb 8.5 L Hct 24.7 L MCV 90.6 MCH 31.2 MCHC 34.4 RDW 14.1 Plt Count 374 Neut % (Auto) 72.4 Lymph % (Auto) 15.7 L [place] % (Auto) 9.3 Eos % (Auto) 2.0 Baso % (Auto) 0.6 Neut # (Auto) 6600 Lymph # (Auto) 1400 [place] # (Auto) 900 Eos # (Auto) 200 Baso # (Auto) 100 PT 12.8 H INR 1.1 Assessment & Plan Assessment & Plan narrative: Patient is slowly recovering from drainage of a pelvic abscess appendectomy for ruptured appendix and disruption of the pelvic phlegmon. His hemoglobin has stabilized at 8.5 this is the 1st day that his hemoglobin has not dropped.. INR is normal remaining coagulopathy studies are not yet returned. I doubt that he has a subset of hemophilia but he certainly has abnormal bleeding. I will remove his Love catheter today possibly send the patient home tomorrow. Quality VTE Deep Vein Thrombosis/Pulmonary Embolism Present on Admission: No
[2020-02-02] MEDS: DOCUSATE 100 MG CAPSULE PO ×2 (10:14→19:57)
[2020-02-02] MEDS: polyethylene glycoL 3350 17 GM POWD.PACK PO (10:14)
[2020-02-02] MEDS: OXYCODONE/ACETAMINOPHEN 5/325 TABLET 2 TAB PO ×2 (12:05→19:57)
[2020-02-02 12:50] VITALS: BP 135/81; PULSE 84; RESP 16; TEMP 36.9; O2SAT 98
--- NOTE | 2020-02-02 15:53 | PC.NURSE ---
Addendum entered by Zulma Cardoza R.N. 02/02/20 23:01: Reports good relief from surgical pain following percocet administration. Denies any further stools or rectal bleeding. Resting quietly in bed with BL scd's in place. Addendum entered by Zulam Cardoza R.N. 02/02/20 20:04: Pt requests suppository to promote bowel function and preference is to self administered. Lubricant jelly was provided as well as suppository. Pt states is familiar with insertion of rectal meds. Pt has small stool with bright red blood in toilet. Pt reports this is not unusual due to hemorrhoids. Will continue to monitor. Ice to abdominal incisions as well as percocet to manage pain 03/31. Original Note: Pt ambulatory in hallway with spouse @ beginning of shift. Returns self to bed. BL calf scd's replaced. Pt denies need for pain meds @ this time. Rates pain as annoying to abdomen. Coversite dressing dry and intact to lower central abdomen. SULLY compressed with shadowy drainage noted left lateral abdomen at SULLY insertion site. This was outlined. Diminished, but clear breath sounds to posterior kincaid BL. I.S. use encouraged and pt able to use to 2500. Encouraged to call for needs. Reports passing flatus.
[2020-02-02 16:04] VITALS: BP 142/84; PULSE 76; RESP 18; TEMP 36.7; O2SAT 100
--- NOTE | 2020-02-02 16:23 | CM.DPC ---
DCP: continued: EMR reviewed and discussed case in Team Rounds. Pt is now up ambulating in halls with spouse. Dr. Franco was here this afternoon, d/c'd vazquez catheter. States pt may be ready for d/c to home setting tomorrow. DCP team will continue to follow prn
[2020-02-02] MEDS: SODIUM CHLORIDE 0.9% FLUSH 10 ML IV ×2 (17:14→19:57)
[2020-02-02] MEDS: BISACODYL 10 MG SUPP PR (18:02)
[2020-02-02 20:50] VITALS: BP 137/80; PULSE 78; RESP 16; TEMP 36.9; O2SAT 100
[2020-02-03] VITALS: BP 123/64; PULSE 94; RESP 16; TEMP 37.3; O2SAT 99
[2020-02-03] MEDS: OXYCODONE/ACETAMINOPHEN 5/325 TABLET 2 TAB PO ×3 (00:17→10:05)
[2020-02-03] MEDS: SODIUM CHLORIDE 0.9% FLUSH 10 ML IV ×2 (05:27→08:29)
[2020-02-03] MEDS: PIPERACILLIN-TAZO 3.375 GM/50 ML FROZ.PIGGY IV (05:27)
[2020-02-03 06:00] VITALS: BP 123/67; PULSE 72; RESP 16; TEMP 36.7; O2SAT 98
[2020-02-03 08:00] VITALS: BP 138/73; PULSE 74; RESP 18; TEMP 36.6; O2SAT 100
[2020-02-03] MEDS: raNITIdine 150 MG CAPSULE PO (08:29)
[2020-02-03] MEDS: GABAPENTIN 300 MG CAPSULE PO (08:29)
[2020-02-03] MEDS: SIMETHICONE 80 MG TABLET PO (08:29)
[2020-02-03] MEDS: DOCUSATE 100 MG CAPSULE PO (08:29)
[2020-02-03] MEDS: CIPROFLOXACIN 500 MG TABLET PO (10:05)
--- NOTE | 2020-02-03 10:12 | PM.DS.1 ---
History of Present Illness History of Present Illness Chief complaint: STOMACH PAIN Narrative: 59-year-old white male who has had lower abdominal pain for a week. He had fever and chills at the onset of this with nausea and no vomiting. He has had some loose stools. His also has some difficulty urinating. He started himself on amoxicillin 4 days ago. He came to the emergency room last night with increasing pain and some fever. CT scan was done which shows likely an inflammatory mass in the right lower quadrant. We cannot see the appendix. We cannot see the tip of the cecum. This does not appear to be an abscess. Likely it is an inflammatory mass related to a ruptured appendix. However he is 59 and is entitled to have carcinoma the cecum or carcinoma of the appendix. Discharge Providers Provider Date of admission: 01/29/20 21:30 Discharge Date: 02/03/20 Consults: 01/30/20 14:42 Consult to Discharge Planning Routine Comment: Discharge provider: Sammy West MD Summary Hospital Course Discharge Diagnosis: Ruptured appendix with pelvic phlegmon and pelvic abscess Hospital Course: Patient was admitted with 1 week history of abdominal pain evidently ruptured his appendix about a week prior to coming in. CT scan showed a mass in the pelvis at operation this was found to be an abscess associated with soft tissue phlegmon. Organisms cultured from that are E coli Pseudomonas and Bacteroides fragilis. The patient was treated with intravenous Zosyn for 5 days. He has remained afebrile 4 days now. His white count has been normal on repeat study. His Herbert drain has put out a fair amount of serosanguineous fluid which is not purulence. The drain is removed today. He is discharged on Cipro 500 b.i.d. which will cover both the Pseudomonas and E coli. The Bacteroides fragilis should be well treated both with the operation as well as 5 days of Zosyn. Patient is discharged today. He will return this week to have his mike removed. Status at Discharge Cognitive/behavioral status at discharge: oriented Functional status at discharge: independent ambulation Overall status at discharge: patient is not back to baseline Time Spent with Patient Time spent: Greater than 30 minutes Exam Vital Signs (past 8 hours): - 02/03/20 06:00 02/03/20 08:00 Temperature 98.1 F 97.9 F Pulse Rate 72 74 Respiratory Rate 16 18 Blood Pressure 123/67 138/73 Pulse Oximetry 98 100 Oxygen Delivery Method Room Air Oxygen Flow Rate 0 Objective Labs Result Diagrams: 02/02/20 05:58 01/30/20 09:37 Discharge Plan Discharge Plan Patient Disposition: Home Discharge orders & Medications Prescriptions: New ciprofloxacin HCl [Cipro] 500 mg Tablet 500 mg PO BID 5 Days Qty: 10 RF: 0 oxycodone-acetaminophen 5-325 mg Tablet 2 tab PO Q4-8H PRN (Reason: Pain, Moderate (4-6)) 5 Days Qty: 0 RF: 0 oxycodone-acetaminophen 5-325 mg Tablet 1 tab PO Q4HR PRN (Reason: Pain, Moderate (4-6)) 5 Days Qty: 20 RF: 0 Continued atorvastatin 40 mg tablet 40 mg PO DAILY RF: 0 Quality VTE Deep Vein Thrombosis/Pulmonary Embolism Present on Admission: No
--- NOTE | 2020-02-03 10:55 | PM.PN.1 ---
Subjective Subjective Date Patient Seen: 02/03/20 Time Patient Seen: 10:55 Interval history: Patient is now 5 days postop drainage of a pelvic abscess and this member min of a pelvic phlegmon. This was the result of a ruptured appendix. This morning he feels well is managing getting out of bed without help he is voiding easily without the Love catheter. He has had a bowel movement. He is tolerating a diet. Exam Vital Signs (past 8 hours): - 02/03/20 06:00 02/03/20 08:00 Temperature 98.1 F 97.9 F Pulse Rate 72 74 Respiratory Rate 16 18 Blood Pressure 123/67 138/73 Pulse Oximetry 98 100 Oxygen Delivery Method Room Air Oxygen Flow Rate 0 Narrative Exam Narrative: Patient is afebrile. Abdomen is soft and incision is healing beautifully with no sign of infection. Herbert-Pelaez drain is now producing only a scant amount of serosanguineous fluid. Objective Labs Result Diagrams: 02/02/20 05:58 01/30/20 09:37 Assessment & Plan Assessment & Plan narrative: Patient has recovered sufficiently to go home. He will be discharged on Cipro 500 p.o. b.i.d. for treatment of E coli and Pseudomonas which I cultured and both of which are sensitive to Cipro. He will return later this week for staple removal at the surgery [facility] here. He has been instructed to do no heavy lifting or straining for a month. The drain is removed prior to discharge today. Patient has been instructed on bathing and wound care and seems to understand clearly. He has no unanswered questions. Quality VTE Deep Vein Thrombosis/Pulmonary Embolism Present on Admission: No
--- NOTE | 2020-02-03 11:14 | PC.NURSE ---
Drain dc'd per MD order, patient tolerated well. Gauze dressing placed. Per Dr. West patient should expect pink drainage until area has closed, educated patient on dressing changes, keeping incision and drain sites clean and dry and signs and symptoms of infection to watch for. IV dc'd intact. Patient getting dressed and waiting for his to pick him up. Anticipate discharge to home today.
[2020-02-04 10:33] LABS: Factor VIII Activity 192 % (56-140); PTT 32 sec (24-33); von Willebrand Activity 146 % (50-200); von Willebrand Antigen 144 % (50-200)
== END 2020-02-03 12:27 | disposition home or self-care (01) | DRG 339 ==
LOC: ED 21:30 → AC 01-30 07:51
PROVIDERS: Admitting Provider Surgery; Emergency Provider Emergency Medicine; Visit Provider Surgery
PROC: 0DTJ0ZZ Resection of Appendix, Open Approach (ICD-10-PCS; CPT 49000; principal; 2020-01-30 11:00)
DX: K35.33 Acute appendicitis with perforation, localized peritonitis, and gangrene, with abscess (principal); D62 Acute posthemorrhagic anemia; L76.22 Postprocedural hemorrhage of skin and subcutaneous tissue following other procedure; R33.9 Retention of urine, unspecified; F17.210 Nicotine dependence, cigarettes, uncomplicated; B96.20 Unspecified Escherichia coli [E. coli] as the cause of diseases classified elsewhere; B96.6 Bacteroides fragilis [B. fragilis] as the cause of diseases classified elsewhere
CPT/HCPCS: 36415; 74177; 80053; 81003; 82378; 82962; 83690; 84145; 85025; 85240; 85246; 85250; 85610; 85730; 87070; 87075; 87077; 87186; 87205; 94760; 96365; 99284; J0360; J1100; J1170; J1756; J1885; J2250; J2270; J2405; J2543; J2704; J3010; Q9967

== ENCOUNTER 2020-02-20 10:24 | Inpatient (IN) | payer OTHER, SELFPAY ==
[2020-02-20] VITALS (21 sets, daily range): BP systolic 102–124; BP diastolic 45–73; PULSE 60–84; RESP 14–28; TEMP 36.8–37.4; O2SAT 94–100; BMI 25.5
--- NOTE | 2020-02-20 | DI.CT.S_ITS ---
PROCEDURE: CT DRAIN APPENDICEAL ABSCESS COMPARISON: None. INDICATIONS: Mesenteric abcess DESCRIPTION OF PROCEDURE: Informed consent was obtained. The patient was prepped and draped in the standard sterile fashion. Multiple CT images were used to localize the abnormality. Using local anesthetic and Seldinger technique, a needle was placed into the collection. Following guidewire placement, fascial dilators were used to dilate the tract and a drainage catheter was placed in the usual manner. The drainage tube was secured to the skin and a surgical dressing was applied. LOCATION: Right upper quadrant mesentery TUBE SPECIFICATIONS: 8.5 [place] MEDICATIONS: 50 mcg fentanyl and 1 mg Versed COMPLICATIONS: None. CONCLUSION: Successful CT-guided percutaneous peritoneal drainage procedure. No immediate complications. Dictated by: Cielo Hunter MD, PhD on 02/20/2020 at 16:34 Approved by: Cielo Hunter MD, PhD on 02/20/2020 at 16:51
--- NOTE | 2020-02-20 10:27 | ED_ITS ---
HPI - Abdominal Pain General Chief Complaint: Abdominal Pain Stated Complaint: had appendectomy,persistant pain sent by doc Time Seen by Provider: 02/20/20 10:27 History of Present Illness HPI narrative: 59-year-old gentleman who was found to have ruptured appendicitis on January 28. Underwent surgery and was seen in follow-up by his surgeon on February 11 still with some mild continued pain. He has been on oral Cipro since discharge for approximately 2 weeks. Over they a last number of days pain is been increasing particularly in the right lower quadrant with an increased sense of feeling ill with myalgias, headaches, anorexia as well as intermittent diarrhea. He is finding that he is developing more right lower quadrant pain that is not worsened with abdominal palpation but is problematic with increased movement Related Data Home Medications Medication Instructions Recorded Confirmed atorvastatin 40 mg PO DAILY 01/30/20 02/12/20 Allergies Allergy/AdvReac Type Severity Reaction Status Date / Time No Known Drug Allergies Allergy Verified 02/20/20 10:36 Review of Systems Review of Systems Narrative: Last meal was yesterday, he had to meal supplement shakes Denies ? cough ? cold ? chest pain ? dyspnea ? orthopnea ? wheezing ? skin changes ? rashes Patient History Medical History Perforated appendicitis (Inactive) Social History household members: spouse Smoking Status: Current some day smoker alcohol intake: never substance use type: marijuana Smoking Status: Current some day smoker Alcohol type: other Substance Use Type: marijuana Exam Narrative Exam Narrative: General: Ill-appearing gentleman, pale mildly tachypneic. Able to give a complete and coherent history. Well-nourished well-developed HEENT: Moist mucous membranes, normal sclera with reactive pupils, Neck: No JVD, supple Respiratory: Lungs are clear to auscultation, no wheezing no rales no rhonchi. Full and symmetrical air movement Cardiac: Regular rate and rhythm no murmurs no bruits Abdomen: Soft nontender good bowel tones, no flank pain, lower abdominal midl ine scar is healing nicely. His CT some tenderness in the right lower quadrant but no rebound or guarding Skin: Warm and dry, no rashes Neurologic: Grossly neurologically intact with no obvious asymmetries or abnormalities Extremities: No trauma, well perfused Psych: Cooperative, appropriate insight and affect Initial Vital Signs Initial Vital Signs: Vital Signs Temperature 98.3 F 02/20/20 10:30 Pulse Rate 69 02/20/20 10:30 Respiratory Rate 16 02/20/20 10:30 Blood Pressure 106/57 L 02/20/20 10:30 Pulse Oximetry 94 02/20/20 10:30 Course Orders Ordered: ED Orders 02/20/20 10:44 Comprehensive Metabolic Panel Stat Lactate (Lactic Acid) Stat Procalcitonin Stat 02/20/20 11:00 Blood Culture Stat Complete Blood Count AUTO DIFF Stat Packed Cells Stat Type and Screen Stat 02/20/20 11:28 CT abdomen pelvis w con Stat 02/20/20 11:40 Urine Microscopic Stat Hydromorphone HCl (Dilaudid) 0.5 mg IV PRN PRN PRN Reason: Pain, Moderate (4-6) Last Admin: 02/20/20 11:06 Dose: 0.5 mg Documented by: OSITO Hydromorphone HCl (Dilaudid) 1 mg IV Q15MIN PRN PRN Reason: pain Last Admin: 02/20/20 12:14 Dose: 1 mg Documented by: OSITO Ondansetron HCl (Zofran) 4 mg IV PRN PRN PRN Reason: Nausea Discontinued Medications Piperacillin/Tazobactam/Dextrose (Zosyn) 4.5 gm in 100 mls @ 200 mls/hr IV NOW ONE Stop: 02/20/20 11:10 Last Infusion: 02/20/20 12:10 Dose: 0 mls/hr Documented by: Admin: 02/20/20 11:20 Dose: 200 mls/hr Documented by: OSITO Sodium Chloride (Normal Saline 0.9%) 1,000 mls @ 1,000 mls/hr IV BOLUS ONE Stop: 02/20/20 11:40 Last Infusion: 02/20/20 12:27 Dose: 1,000 mls/hr Documented by: Admin: 02/20/20 11:20 Dose: 1,000 mls/hr Documented by: OSITO Vital Signs Vital signs: Vital Signs - 8 hr 02/20/20 10:30 02/20/20 10:51 02/20/20 11:29 Temperature 98.3 F 98.3 F Pulse Rate 69 60 74 Respiratory Rate 16 26 H 28 H Blood Pressure 106/57 L Blood Pressure [Right Arm] 105/58 L 119/61 Pulse Oximetry 94 100 97 02/20/20 12:09 02/20/20 12:33 02/20/20 13:07 Temperature Pulse Rate 72 76 76 Respiratory Rate 14 23 25 H Blood Pressure Blood Pressure [Right Arm] 116/56 L 118/73 113/69 Pulse Oximetry 99 100 100 MDM - Abdominal Pain Medical Records Attestation: I reviewed the patient's medical records. Lab Data Attestation: I reviewed the patient's lab results. Lab results narrative: Uncertain etiology of the significant thrombocytosis, likely acute phase reactant. Anemia in the setting of a anticipated return to the operating room. Result diagrams: 02/20/20 11:00 02/20/20 10:44 Labs: Lab Results 02/20/20 02/20/20 02/20/20 Range/Units 10:44 10:44 10:44 WBC (4.5-11.0) X10^3/uL RBC (4.5-5.9) X10^6/uL Hgb (13.5-17.5) g/dL Hct (41-53) % MCV (80-100) fL MCH (26-34) PG MCHC (30-36) % RDW (11.6-14.8) % Plt Count (150-400) X10^3/uL Neut % (Auto) (50-75) % Lymph % (Auto) (25-40) % [place] % (Auto) (3-14) % Eos % (Auto) (2-4) % Baso % (Auto) (0-2) % Neut # (Auto) (7327-0134) /uL Lymph # (Auto) (4921-3037) /uL [place] # (Auto) (0-900) /uL Eos # (Auto) (0-450) /uL Baso # (Auto) (0-100) /uL Platelet Estimate RBC Morphology PT (10.1-12.7) SECONDS INR (0.9-1.3) APTT (26.4-36.2) SECONDS Sodium 135 L (137-145) mmol/L Potassium 4.5 (3.4-5.1) mmol/L Chloride 100 (98-107) mmol/L Carbon Dioxide 27 (22-32) mmol/L BUN 17 (9-20) mg/dL Creatinine 0.67 (0.66-1.25) mg/dL Estimated GFR > 60.0 (>60) mL/min BUN/Creatinine Ratio 25.4 H (6-22) Glucose 120 H (70-100) mg/dL Lactate 1.2 (0.7-2.1) mmol/L Calcium 9.1 (8.4-10.2) mg/dL Total Bilirubin 0.4 (0.2-1.3) mg/dL AST 67 H (17-59) IU/L ALT 61 H (<50) IU/L Alkaline Phosphatase 215 H (38-126) U/L Total Protein 7.5 (6.3-8.2) g/dL Albumin 3.4 L (3.5-5.0) g/dL Globulin 4.1 (1.7-4.1) g/dL Albumin/Globulin Ratio 0.8 L (1.0-2.8) Procalcitonin 0.20 (<0.5) ng/mL Blood Type Antibody Screen Crossmatch 02/20/20 02/20/20 02/20/20 Range/Units 11:00 11:00 12:45 WBC 16.5 H (4.5-11.0) X10^3/uL RBC 2.49 L (4.5-5.9) X10^6/uL Hgb 7.3 L (13.5-17.5) g/dL Hct 22.0 L (41-53) % MCV 88.4 (80-100) fL MCH 29.5 (26-34) PG MCHC 33.3 (30-36) % RDW 15.8 H (11.6-14.8) % Plt Count 1162 H* (150-400) X10^3/uL Neut % (Auto) 88.1 H (50-75) % Lymph % (Auto) 5.5 L (25-40) % [place] % (Auto) 6.2 (3-14) % Eos % (Auto) 0.1 L (2-4) % Baso % (Auto) 0.1 (0-2) % Neut # (Auto) 77652 H (4036-6393) /uL Lymph # (Auto) 900 L (4086-6515) /uL [place] # (Auto) 1000 H (0-900) /uL Eos # (Auto) 0 (0-450) /uL Baso # (Auto) 0 (0-100) /uL Platelet Estimate Increased on smear RBC Morphology Not Reportable PT 15.2 H (10.1-12.7) SECONDS INR 1.3 (0.9-1.3) APTT 31 (26.4-36.2) SECONDS Sodium (137-145) mmol/L Potassium (3.4-5.1) mmol/L Chloride (98-107) mmol/L Carbon Dioxide (22-32) mmol/L BUN (9-20) mg/dL Creatinine (0.66-1.25) mg/dL Estimated GFR (>60) mL/min BUN/Creatinine Ratio (6-22) Glucose (70-100) mg/dL Lactate (0.7-2.1) mmol/L Calcium (8.4-10.2) mg/dL Total Bilirubin (0.2-1.3) mg/dL AST (17-59) IU/L ALT (<50) IU/L Alkaline Phosphatase (38-126) U/L Total Protein (6.3-8.2) g/dL Albumin (3.5-5.0) g/dL Globulin (1.7-4.1) g/dL Albumin/Globulin Ratio (1.0-2.8) Procalcitonin (<0.5) ng/mL Blood Type O Negative Antibody Screen Negative Crossmatch See Detail Point of care testing: Urine Dip Bedside Urine Glucose Negative Bedside Urine Bilirubin + 1 Bedside Urine Ketone +/- 5 Urine Specific [place] 1.015 Bedside Urine Occult Blood - Negative Bedside Urine pH 6.5 Bedside Urine Protein + 30 Bedside Urine Urobilinogen - Negative Bedside Urine Nitrite - Negative Bedside Urine Leukocytes +/- [address] scan - abdomen/pelvis: Radiologist's Impression: ABDOMEN: Lung bases: Likely atelectasis can be seen within the right lower lobe. Within the right middle lobe, there is a faint potential pulmonary nodule, as on series 3 image 11. The left lung base is clear. Heart size is within normal limits. Coronary artery calcifications are seen. Solid organs: The liver demonstrates normal size. There is again seen a nonenhancing cyst within the anterior left liver, as on series 2 image 27 measuring 12 mm. Along the posterior aspect of the right posterior liver, there has an elongated fluid collection seen, which was not present on the prior examination and measures 11 cm craniocaudally, with a maximum axial extent of 5.4 x 4.4 cm. Along the inferior aspect of this fluid collection, there is a connected additional locules seen slightly more inferiorly, as on series 2 image 54 measuring 3.5 x 2.2 x 3.7 cm. Gallbladder wall does not appear thickened. Biliary system is non dilated. Pancreas enhances normally. Spleen is normal in size and enhancement. No adrenal nodules. Kidneys demonstrate normal size and enhancement, without hydronephrosis. Peritoneum and bowel: There is a chronic collection containing fluid and gas with a thickened enhancing rim that measures 11.5 x 9.2 cm in greatest axial dimension, with a craniocaudal extent of 10.6 cm. There is thickening of the wall of the cecum and the ascending colon and the proximal transverse colon. Mild wall thickening can be seen within adjacent small bowel loops as well. A mild degree of wall thickening is also seen involving the sigmoid colon. Surrounding inflammatory changes are seen. Post appendectomy changes are seen. No significant free air is seen. A mild degree of free intraperitoneal fluid can be seen. Nodes and vessels: No retroperitoneal or mesenteric adenopathy by size criteria. Aorta and inferior vena cava are normal in size. Atherosclerotic calcification is noted. Miscellaneous: No ventral hernias. PELVIS: Genitourinary: Bladder wall thickness is normal. Miscellaneous: No inguinal hernias or adenopathy. Bones: No suspicious bony lesions. No vertebral body compression fractures. Focal L5-S1 degenerative change is seen. Milder degenerative changes are seen elsewhere. IMPRESSION: 11.5 cm right lower quadrant intraperitoneal abscess. There is an additional bilobed abscess measuring 11 cm craniocaudally within the right inferior liver. Surrounding inflammatory changes are seen, with adjacent bowel thickening. Faintly seen 4 mm right middle lobe pulmonary nodule. Attention should be paid to this focus on any future followup studies through the region. Incidental note is made of: Atherosclerotic calcification, including coronary artery calcification Focal L5-S1 degenerative change Note: Case discussed by telephone with nurse Kenna at 10:50 AM [place] time on February 20, 2020. She will discuss the case with Dr. Mary Ellis, who will call back if there any questions. Dictated by: Denis Rodriguez M.D. on 02/20/2020 at 10:42 MDM Narrative Medical decision making narrative: Acutely ill 59-year-old gentleman presenting almost 3 weeks after a perforated appendectomy surgery. Increasing pain general myalgias low-grade fevers. CT scan suggests large abscess and possible intra- abdominal abscess. Case and scan have been reviewed with Dr. Woodard, she requests a single unit of packed red cells transfusion in anticipation of repeat trip to the operating room. Agrees with current plan and management. Will anticipate inpatient hospitalization. 12:42 Dr Woodard has reviewed CT findings with the radiologist. The these abscesses both may be amenable to interventional radiology. She is trying to contact Interventional Radiology at [facility]. Will continue current care in the emergency department at this time. 13:14 Pt will be admitted at [place], to Dr Woodard, Dr Vaca will do IR drainage. Discharge Plan Departure Patient Disposition: Admitted As Inpatient Clinical Impression: Intraperitoneal abscess Admit Date/Time: 02/20/20 13:19 Admit Provider: Frances Woodard
[2020-02-20 11:04] LABS: Lactate (Lactic Acid) 1.2 mmol/L (0.7-2.1)
[2020-02-20 11:05] LABS: Alanine Aminotransferase 61 IU/L (<50); Albumin 3.4 g/dL (3.5-5.0); Albumin Globulin Ratio 0.8 (1.0-2.8); Alkaline Phosphatase 215 U/L (38-126); Aspartate Aminotransferase 67 IU/L (17-59); BUN Creatinine Ratio 25.4 (6-22); Bilirubin Total 0.4 mg/dL (0.2-1.3); Blood Urea Nitrogen 17 mg/dL (9-20); Calcium 9.1 mg/dL (8.4-10.2); Carbon Dioxide 27 mmol/L (22-32); Chloride 100 mmol/L (98-107); Estimated Glomerular Filt Rate > 60.0 mL/min (>60); Globulin 4.1 g/dL (1.7-4.1); Glucose 120 mg/dL (70-100); HEMOLYSIS < 15 (0-50); Potassium 4.5 mmol/L (3.4-5.1); Sodium 135 mmol/L (137-145); Total Protein 7.5 g/dL (6.3-8.2)
[2020-02-20] MEDS: HYDROMORPHONE 0.5 MG INJ IV ×3 (11:06→19:59)
[2020-02-20 11:10] LABS: Add Manual Diff / Slide Review NO; Basophils Absolute Auto 0 /uL (0-100); Basophils Percent Auto 0.1 % (0-2); Eosinophils Absolute Auto 0 /uL (0-450); Eosinophils Percent Auto 0.1 % (2-4); Hemoglobin 7.3 g/dL (13.5-17.5); Lymphocytes Absolute Auto 900 /uL (1100-4500); Lymphocytes Percent Auto 5.5 % (25-40); Mean Corpuscular HGB Conc 33.3 % (30-36); Mean Corpuscular Hemoglobin 29.5 PG (26-34); Mean Corpuscular Volume 88.4 fL (80-100); Monocytes Absolute Auto 1000 /uL (0-900); Monocytes Percent Auto 6.2 % (3-14); Neutrophils Absolute Auto 14500 /uL (1500-7000); Neutrophils Percent Auto 88.1 % (50-75); Red Blood Cell Count 2.49 X10^6/uL (4.5-5.9); Red Cell Distribution Width 15.8 % (11.6-14.8); White Blood Cell Count 16.5 X10^3/uL (4.5-11.0)
[2020-02-20 11:14] LABS: Platelet Count 1162 X10^3/uL (150-400)
[2020-02-20] MEDS: SODIUM CHLORIDE 0.9% 1,000 ML 1000 ML IV (11:20)
[2020-02-20] MEDS: PIPERACILLIN-TAZO 4.5 GM/100 ML FROZ.PIGGY IV (11:20)
[2020-02-20 11:27] LABS: Platelet Estimate Increased on smear
--- NOTE | 2020-02-20 11:28 | DI.CT.S_ITS ---
PROCEDURE: CT ABDOMEN PELVIS W CON INDICATIONS: pain post appy with rupture, ? abscess TECHNIQUE: After the administration of intravenous contrast, 5 mm thick sections acquired from the diaphragm to the symphysis. 5 mm coronal and sagittal reformats were acquired. For radiation dose reduction, the following was used: automated exposure control, adjustment of mA and/or kV according to patient size. COMPARISON: [facility], CT, CT ABDOMEN PELVIS W CON, 01/29/2020, 20:08. FINDINGS: Image quality: Excellent. ABDOMEN: Lung bases: Likely atelectasis can be seen within the right lower lobe. Within the right middle lobe, there is a faint potential pulmonary nodule, as on series 3 image 11. The left lung base is clear. Heart size is within normal limits. Coronary artery calcifications are seen. Solid organs: The liver demonstrates normal size. There is again seen a nonenhancing cyst within the anterior left liver, as on series 2 image 27 measuring 12 mm. Along the posterior aspect of the right posterior liver, there has an elongated fluid collection seen, which was not present on the prior examination and measures 11 cm craniocaudally, with a maximum axial extent of 5.4 x 4.4 cm. Along the inferior aspect of this fluid collection, there is a connected additional locules seen slightly more inferiorly, as on series 2 image 54 measuring 3.5 x 2.2 x 3.7 cm. Gallbladder wall does not appear thickened. Biliary system is non dilated. Pancreas enhances normally. Spleen is normal in size and enhancement. No adrenal nodules. Kidneys demonstrate normal size and enhancement, without hydronephrosis. Peritoneum and bowel: There is a chronic collection containing fluid and gas with a thickened enhancing rim that measures 11.5 x 9.2 cm in greatest axial dimension, with a craniocaudal extent of 10.6 cm. There is thickening of the wall of the cecum and the ascending colon and the proximal transverse colon. Mild wall thickening can be seen within adjacent small bowel loops as well. A mild degree of wall thickening is also seen involving the sigmoid colon. Surrounding inflammatory changes are seen. Post appendectomy changes are seen. No significant free air is seen. A mild degree of free intraperitoneal fluid can be seen. Nodes and vessels: No retroperitoneal or mesenteric adenopathy by size criteria. Aorta and inferior vena cava are normal in size. Atherosclerotic calcification is noted. Miscellaneous: No ventral hernias. PELVIS: Genitourinary: Bladder wall thickness is normal. Miscellaneous: No inguinal hernias or adenopathy. Bones: No suspicious bony lesions. No vertebral body compression fractures. Focal L5-S1 degenerative change is seen. Milder degenerative changes are seen elsewhere. IMPRESSION: 11.5 cm right lower quadrant intraperitoneal abscess. There is an additional bilobed abscess measuring 11 cm craniocaudally within the right inferior liver. Surrounding inflammatory changes are seen, with adjacent bowel thickening. Faintly seen 4 mm right middle lobe pulmonary nodule. Attention should be paid to this focus on any future followup studies through the region. Incidental note is made of: Atherosclerotic calcification, including coronary artery calcification Focal L5-S1 degenerative change Note: Case discussed by telephone with nurse Kenna at 10:50 AM [place] time on February 20, 2020. She will discuss the case with Dr. Mary Ellis, who will call back if there any questions. Dictated by: Denis Rodriguez M.D. on 02/20/2020 at 10:42 Approved by: Denis Rodriguez M.D. on 02/20/2020 at 10:55
[2020-02-20] MEDS: HYDROMORPHONE 1 MG INJ IV ×4 (12:14→23:48)
[2020-02-20 13:52] LABS: INR 1.3 (0.9-1.3); Prothrombin Time 15.2 SECONDS (10.1-12.7)
[2020-02-20 13:55] LABS: PTT Partial Thromboplastin Tim 31 SECONDS (26.4-36.2)
--- NOTE | 2020-02-20 14:25 | P.HP_ITS ---
History of Present Illness History of Present Illness Date Patient Seen: 02/20/20 Time Patient Seen: 13:25 Chief complaint: had appendectomy,persistant pain sent by doc Narrative: This is a 59-year-old man who had an open appendectomy 3 weeks ago for perforated appendicitis. He has gone through phases of feeling better and then worse again over the last 3 weeks. He came into the ER today, because he was having worsening abdominal pain, malaise, fatigue, and weakness. He has had some low-grade fevers at home, and is afebrile in the ER. In the ER he had labs drawn and a CT scan. The labs show a white count of 16, hemoglobin of 7.3, platelets of 1,162,000, and the CT scan shows a large abdominal abscess, as well as a fluid collection in the right flank just below the liver. Other than the recent appendicitis, he denies any other significant medical or surgical history other than high cholesterol, for which he takes atorvastatin. ROS: The patient denies nausea, vomiting, constipation, obstipation, hematochezia, melena, but reports a poor appetite. He reports diarrhea, but says he is still taking stool softeners and laxatives per his discharge instructions after surgery. He denies any chest pain, shortness of breath, cough, generalized body aches. He denies any changes in vision or mentation. He denies any lower extremity swelling, or muscle cramps. Thirteen system review is otherwise negative other than as mentioned below and in HPI. PE: GENERAL: Alert, uncomfortable appearing, appears stated age. In no acute distress. Answers questions promptly and appropriately. Vital signs noted. HENT: Normocephalic, atraumatic. Hearing intact. Oral mucosa is pink and dry. EYES: Conjunctiva pink, sclera white, no periorbital swelling. CARDIOVASCULAR: Regular rate. No pedal edema. RESPIRATORY: Non-tachypneic, breathing comfortably on room air. GASTROINTESTINAL: Abdomen soft, mildly distended, firm mass in the right mid abdomen, consistent with CT scan findings. Healing lower midline incisional scar with no erythema. GENITALURINARY: No flank tenderness. MUSCULOSKELETAL: Equal tone and mass bilaterally. SKIN: The patient appears somewhat pale. His skin is otherwise warm, dry, soft, appropriate for ethnicity. No other lesions, rashes, or wounds. NEURO: Alert and Oriented X 3. No gross sensory deficits, or cognitive issues. PSYCH: Appropriate affect and mood. Patient History Medical History Perforated appendicitis (Inactive) Family & Social History Social History: household members spouse Safety & Behavioral: Feels Safe in Current Yes Environment Been Physically Hurt or No Threatened By a Person Tobacco & Substance use: Tobacco type cigarettes Smoking Status Current some day smoker alcohol intake never alcohol intake frequency 0-2 drinks per day Substance Use Type marijuana Meds Home Medications and Allergies Home Medications Medication Instructions Recorded Confirmed Type atorvastatin 40 mg PO DAILY 01/30/20 02/12/20 History aspirin 650 mg PO Q4-6H PRN 02/20/20 02/20/20 History Allergies Allergy/AdvReac Type Severity Reaction Status Date / Time No Known Drug Allergies Allergy Verified 02/20/20 10:36 Exam Vital Signs (past 8 hours): - 02/20/20 10:30 02/20/20 10:51 02/20/20 11:29 Temperature 98.3 F 98.3 F Pulse Rate 69 60 74 Respiratory Rate 16 26 H 28 H Blood Pressure 106/57 L Blood Pressure [Right Arm] 105/58 L 119/61 Pulse Oximetry 94 100 97 02/20/20 12:09 02/20/20 12:33 02/20/20 13:07 Temperature Pulse Rate 72 76 76 Respiratory Rate 14 23 25 H Blood Pressure Blood Pressure [Right Arm] 116/56 L 118/73 113/69 Pulse Oximetry 99 100 100 02/20/20 13:30 02/20/20 14:03 02/20/20 14:08 Temperature 98.2 F Pulse Rate 66 67 63 Respiratory Rate 25 H 27 H 20 Blood Pressure 102/58 L Blood Pressure [Right Arm] 114/64 114/65 Pulse Oximetry 100 100 Oxygen Delivery Method Room Air Objective Imaging CT scan - abdomen: Radiologist's impression: [address] [address] [address] Scan Report Signed Patient: Roldan Cortés TMR#: [id number] : 2Acct:[id number] Age/Sex: 59 / MDate of Service: 02/20/20 Loc: ED Accession Number: [id number] Procedure: CT abdomen pelvis w con Ordering Provider: Mary Ellis MD PROCEDURE: CT ABDOMEN PELVIS W CON INDICATIONS: pain post appy with rupture, ? abscess TECHNIQUE: After the administration of intravenous contrast, 5 mm thick sections acquired from the diaphragm to the symphysis. 5 mm coronal and sagittal reformats were acquired. For radiation dose reduction, the following was used: automated exposure control, adjustment of mA and/or kV according to patient size. COMPARISON: [facility], CT, CT ABDOMEN PELVIS W CON, 01/29/2020, 20:08. FINDINGS: Image quality: Excellent. ABDOMEN: Lung bases: Likely atelectasis can be seen within the right lower lobe. Within the right middle lobe, there is a faint potential pulmonary nodule, as on series 3 image 11. The left lung base is clear. Heart size is within normal limits. Coronary artery calcifications are seen. Solid organs: The liver demonstrates normal size. There is again seen a nonenhancing cyst within the anterior left liver, as on series 2 image 27 measuring 12 mm. Along the posterior aspect of the right posterior liver, there has an elongated fluid co llection seen, which was not present on the prior examination and measures 11 cm craniocaudally, with a maximum axial extent of 5.4 x 4.4 cm. Along the inferior aspect of this fluid collection, there is a connected additional locules seen slightly more inferiorly, as on series 2 image 54 measuring 3.5 x 2.2 x 3.7 cm. Gallbladder wall does not appear thickened. Biliary system is non dilated. P ancreas enhances normally. Spleen is normal in size and enhancement. No adrenal nodules. Kidneys demonstrate normal size and enhancement, without hydronephrosis. Peritoneum and bowel: There is a chronic collection containing fluid and gas with a thickened enhancing rim that measures 11.5 x 9.2 cm in greatest axial dimension, with a craniocaudal extent of 10.6 cm. There is thickening of the wall of the cecum and the ascending colon and the proximal transverse colon. Mild wall thickening can be seen within adjacent small bowel loops as well. A mild degree of wall thickening is also seen involving the sigmoid colon. Surrounding inflammatory changes are seen. Post appendectomy changes are seen. No significant free air is seen. A mild degree of free intraperitoneal fluid can be seen. Nodes and vessels: No retroperitoneal or mesenteric adenopathy by size criteria. Aorta and inferior vena cava are normal in size. Atherosclerotic calcification is noted. Miscellaneous: No ventral hernias. PELVIS: Genitourinary: Bladder wall thickness is normal. Miscellaneous: No inguinal hernias or adenopathy. Bones: No suspicious bony lesions. No vertebral body compression fractures. Focal L5-S1 degenerative change is seen. Milder degenerative changes are seen els ewhere. IMPRESSION: 11.5 cm right lower quadrant intraperitoneal abscess. There is an additional bilobed abscess measuring 11 cm craniocaudally within the right inferior liver. Surrounding inflammatory changes are seen, with adjacent bowel thickening. Faintly seen 4 mm right middle lobe pulmonary nodule. Attention should be paid to this focus on any future followup studies through the region. Incidental note is made of: Atherosclerotic calcification, including coronary artery calcification Focal L5-S1 degenerative change Note: Case discussed by telephone with nurse Kenna at 10:50 AM [place] time on February 20, 2020. She will discuss the case with Dr. Mary Ellis, who will call back if there any questions. Dictated by: Denis Rodriguez M.D. on 02/20/2020 at 10:42 Approved by: Denis Rodriguez M.D. on 02/20/2020 at 10:55 Labs Result Diagrams: 02/20/20 11:00 02/20/20 10:44 Labs: Laboratory Results - last 24 hr 02/20/20 02/20/20 02/20/20 10:44 10:44 10:44 WBC RBC Hgb Hct MCV MCH MCHC RDW Plt Count Neut % (Auto) Lymph % (Auto) [place] % (Auto) Eos % (Auto) Baso % (Auto) Neut # (Auto) Lymph # (Auto) [place] # (Auto) Eos # (Auto) Baso # (Auto) Platelet Estimate RBC Morphology PT INR APTT Sodium 135 L Potassium 4.5 Chloride 100 Carbon Dioxide 27 BUN 17 Creatinine 0.67 Estimated GFR > 60.0 BUN/Creatinine Ratio 25.4 H Glucose 120 H Lactate 1.2 Calcium 9.1 Total Bilirubin 0.4 AST 67 H ALT 61 H Alkaline Phosphatase 215 H Total Protein 7.5 Albumin 3.4 L Globulin 4.1 Albumin/Globulin Ratio 0.8 L Procalcitonin 0.20 Blood Type Antibody Screen Crossmatch 02/20/20 02/20/20 02/20/20 11:00 11:00 12:45 WBC 16.5 H RBC 2.49 L Hgb 7.3 L Hct 22.0 L MCV 88.4 MCH 29.5 MCHC 33.3 RDW 15.8 H Plt Count 1162 H* Neut % (Auto) 88.1 H Lymph % (Auto) 5.5 L [place] % (Auto) 6.2 Eos % (Auto) 0.1 L Baso % (Auto) 0.1 Neut # (Auto) 64451 H Lymph # (Auto) 900 L [place] # (Auto) 1000 H Eos # (Auto) 0 Baso # (Auto) 0 Platelet Estimate Increased on smear RBC Morphology Not Reportable PT 15.2 H INR 1.3 APTT 31 Sodium Potassium Chloride Carbon Dioxide BUN Creatinine Estimated GFR BUN/Creatinine Ratio Glucose Lactate Calcium Total Bilirubin AST ALT Alkaline Phosphatase Total Protein Albumin Globulin Albumin/Globulin Ratio Procalcitonin Blood Type O Negative Antibody Screen Negative Crossmatch See Detail Assessment & Plan Assessment and plan (1) Intraperitoneal abscess: Problem details: Likely secondary to retained infection after appendectomy. I spoke with Dr. Hernandez of Radiology, who will plan to percutaneously drain the abscess. Current visit: Yes Status: Acute (2) Status post appendectomy: Problem details: This is a 59-year-old man who is 3 weeks out from open appendectomy for perforated appendicitis. He comes in with an abscess, anemia, leukocytosis, transaminitis, elevated alk-phos, and thrombocytosis. Dr. Hernandez will attempt a perc drain the abscess, and if he cannot, I will take the patient in the operating room and drain it surgically. Will keep him on Zosyn for now, and transfuse him for his anemia. We will recheck labs this evening and tomorrow morning, and follow him clinically. He will be admitted to the floor for now so long as he remains hemodynamically stable. Current visit: Yes Status: Acute (3) Anemia: Problem details: The patient's hemoglobin is 7.3, which will be much lower after he gets rehydrated. This is likely secondary to postsurgical bleeding into the abscess cavity. So I have asked Dr. Ellis to go ahead and transfuse him when blood is available. We will recheck a CBC this evening. He may require additional transfusions. Current visit: Yes Status: Acute (4) Thrombocytosis: Problem details: The patient's platelet level is over 1100, which is likely an acute phase reaction, but we will follow it closely. I am not giving him aspirin and DVT prophylaxis at this time because of his anemia. We will recheck a CBC after his transfusion. Current visit: Yes Status: Acute (5) Transaminitis: Problem details: This is likely due to his acute illness and dehydration, but we will follow c losely. Current visit: Yes Status: Acute (6) Alkaline phosphatase elevation: Problem details: This is likely due to his acute illness and dehydration, we will follow closely. Current visit: Yes Status: Acute (7) Leukocytosis: Problem details: Secondary to abdominal abscess. Will start Zosyn. Dr. Hernandez to perc drain t he abscess. Current visit: Yes Status: Acute Quality VTE Deep Vein Thrombosis/Pulmonary Embolism Present on Admission: No
--- NOTE | 2020-02-20 14:36 | PC.NURSE ---
PT takes aspirin for pain prn. Last taken yesterday. Informed to stop taking Aspirin until cleared by surgeon and primary care provider related to bleeding risks.
[2020-02-20] MEDS: MIDAZOLAM 2 MG/2 ML VIAL IV (15:38)
[2020-02-20] MEDS: fentaNYL 100 MCG/2 ML INJ IV (15:39)
--- NOTE | 2020-02-20 16:02 | DI.CT.S_ITS ---
PROCEDURE: CT DRAIN APPENDICEAL ABSCESS COMPARISON: [facility], CT, CT ABDOMEN PELVIS W CON, 02/20/2020, 11:05. INDICATIONS: Perihepatic abdominal abscess DESCRIPTION OF PROCEDURE: Informed consent was obtained. The patient was prepped and draped in the standard sterile fashion. Multiple CT images were used to localize the abnormality. Using local anesthetic and Seldinger technique, a needle was placed into the collection. Following guidewire placement, fascial dilators were used to dilate the tract and a drainage catheter was placed in the usual manner. The drainage tube was secured to the skin and a surgical dressing was applied. LOCATION: Right perihepatic abscess. TUBE SPECIFICATIONS: 8.5 [place] MEDICATIONS: 50 mcg fentanyl, 1 mg Versed. COMPLICATIONS: None. CONCLUSION: Successful CT-guided percutaneous peritoneal drainage procedure. No immediate complications. Dictated by: Cielo Hunter MD, PhD on 02/20/2020 at 16:28 Approved by: Cielo Hunter MD, PhD on 02/20/2020 at 16:33
[2020-02-20 17:01] LABS: RBC Urine None Seen (0-5/HPF)
[2020-02-20] MEDS: SODIUM CHLORIDE 0.9% 1,000 ML 125 ML IV (17:05)
[2020-02-20 17:10] LABS: Amorphous Sediment Urine 1+; Bacteria Urine Occasional (0-1); Culture Indicated Urine Specimen Cultured; Squamous Epithelial Cell Urine 0-1 /HPF (0-5/HPF); WBC Urine 1-5/HPF (0-5/HPF)
[2020-02-20 17:42] LABS: Hematocrit 27.1 % (41-53); Hemoglobin 8.8 g/dL (13.5-17.5); Mean Corpuscular HGB Conc 32.5 % (30-36); Mean Corpuscular Volume 89.4 fL (80-100); Red Blood Cell Count 3.03 X10^6/uL (4.5-5.9); Red Cell Distribution Width 15.7 % (11.6-14.8); White Blood Cell Count 16.4 X10^3/uL (4.5-11.0)
[2020-02-20 17:59] LABS: Platelet Count 1193 X10^3/uL (150-400)
[2020-02-20] MEDS: PIPERACILLIN-TAZO 3.375 GM/50 ML FROZ.PIGGY IV ×2 (18:12→21:54)
[2020-02-20 18:36] LABS: Procalcitonin 0.22 ng/mL (<0.5)
[2020-02-20] MEDS: OXYCODONE IR 10 MG TABLET PO (18:44)
[2020-02-20] MEDS: ACETAMINOPHEN 325 MG TABLET 650 MG PO (19:59)
[2020-02-20] MEDS: DOCUSATE 100 MG CAPSULE PO (20:00)
[2020-02-20] MEDS: OXYCODONE IR 5 MG TABLET PO (21:44)
[2020-02-21] VITALS (7 sets, daily range): BP systolic 102–134; BP diastolic 60–83; PULSE 67–90; RESP 16–18; TEMP 37.1–37.6; O2SAT 95–98
[2020-02-21] MEDS: SODIUM CHLORIDE 0.9% 1,000 ML 125 ML IV ×3 (01:16→20:30)
[2020-02-21] MEDS: OXYCODONE IR 10 MG TABLET PO ×6 (01:54→23:43)
[2020-02-21] MEDS: HYDROMORPHONE 1 MG INJ IV (04:22)
[2020-02-21] MEDS: PIPERACILLIN-TAZO 3.375 GM/50 ML FROZ.PIGGY IV ×4 (05:18→22:25)
[2020-02-21 05:40] LABS: Add Manual Diff / Slide Review NO; Basophils Absolute Auto 100 /uL (0-100); Basophils Percent Auto 0.6 % (0-2); Eosinophils Absolute Auto 0 /uL (0-450); Eosinophils Percent Auto 0.3 % (2-4); Hematocrit 23.7 % (41-53); Hemoglobin 7.8 g/dL (13.5-17.5); Lymphocytes Absolute Auto 1300 /uL (1100-4500); Lymphocytes Percent Auto 7.5 % (25-40); Mean Corpuscular HGB Conc 33.1 % (30-36); Mean Corpuscular Hemoglobin 29.7 PG (26-34); Mean Corpuscular Volume 89.9 fL (80-100); Monocytes Absolute Auto 1400 /uL (0-900); Monocytes Percent Auto 8.2 % (3-14); Neutrophils Absolute Auto 14400 /uL (1500-7000); Neutrophils Percent Auto 83.4 % (50-75); Red Blood Cell Count 2.64 X10^6/uL (4.5-5.9); Red Cell Distribution Width 15.6 % (11.6-14.8); White Blood Cell Count 17.3 X10^3/uL (4.5-11.0)
[2020-02-21 05:48] LABS: BUN Creatinine Ratio 24.6 (6-22); Blood Urea Nitrogen 17 mg/dL (9-20); Carbon Dioxide 27 mmol/L (22-32); Chloride 103 mmol/L (98-107); Estimated Glomerular Filt Rate > 60.0 mL/min (>60); Glucose 115 mg/dL (70-100); HEMOLYSIS < 15 (0-50); Magnesium 2.4 mg/dL (1.6-2.3); Potassium 4.6 mmol/L (3.4-5.1); Sodium 133 mmol/L (137-145)
--- NOTE | 2020-02-21 05:48 | PC.NURSE ---
Addendum entered by Americo Anaya R.N. 02/21/20 06:12: Dr. Woodard paged at 0600. She telephoned back and put in new orders. If patient VS change notify Dr. Woodard or if there is increased output from drains. Dr. Woodard is advancing his diet to Regular order CBC at 1200, Lidocaine patch ordered as well. Original Note: Patient VSS patient is hypotensive 102/60 elev temp at 99.5, lung sounds clear. Patient bowel tones hyperactive. Both drains intact w/ drainage that is sanguineous, upper drain output: 60cc, lower drain output: 10cc. Patient has some complaints of abdominal pain 3-05/01, and has been medicated w/ Q4 10mg Oxycodone and 1mg IV dilaudid for breakthrough. Lab telephone w/ critical platelet count of 1060, and H&H 7.3,23.7, will telephone Dr. Del Castillo w/ results.
[2020-02-21 05:53] LABS: Platelet Count 1060 X10^3/uL (150-400)
[2020-02-21 07:01] LABS: Platelet Estimate Increased on smear
--- NOTE | 2020-02-21 08:44 | CM.DANOTE ---
DCP: Case received, EMR reviewed and met with patient. Introduced self and role. Was able to meet with patient to obtain information regarding baseline health history, as well as activity level and living situation. DCP assessment completed with information currently available. Patient is a 59 year old male who admitted yesterday afternoon to the care of the hospitalist/surgical team. PCP: None Payer: confirmed: [employer] Patient came to the hospital via family vehicle secondary to abdominal pain and nausea. Patient had recently been here at the hospital with a ruptured appendicitis, and had surgery. Patient holds current diagnosis of intraperitoneal abscess. Met with patient in his room. He was sitting up in his chair. 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 Patient is alert and oriented. He is independent, and resides on [address] [facility] with his , Jesus. Patient is unsure if he will be having surgery. Discussed having a provider, and asked him if he needed resources to seek a primary care provider, and patient stated, I'd rather not right now, I just want to get through this problem. 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 P: DCP to continue to follow patient closely for any needs. Linda Paul RN/[employer]
--- NOTE | 2020-02-21 09:05 | PM.PN.1 ---
Subjective Subjective Date Patient Seen: 02/21/20 Time Patient Seen: 09:05 Interval history: No acute events over night. Pt reports flatus, but no BM. Denies nausea. Not much appetite. Exam Vital Signs (past 8 hours): - 02/21/20 03:48 02/21/20 06:13 02/21/20 08:22 Temperature 99.5 F 99.5 F 99.7 F H Pulse Rate 90 83 83 Respiratory Rate 16 16 17 Blood Pressure 114/68 102/60 119/71 Pulse Oximetry 95 95 97 Oxygen Delivery Method Room Air Oxygen Flow Rate 0 Narrative Exam Narrative: GENERAL: Alert, comfortable, appears stated age. In no acute distress. Eating breakfast. Answers questions promptly and appropriately. Vital signs noted. HENT: Normocephalic, atraumatic. Hearing intact. Oral mucosa is pink and dry. EYES: Conjunctiva pink, sclera white, no periorbital swelling. CARDIOVASCULAR: Regular rate. No pedal edema. RESPIRATORY: Non-tachypneic, breathing comfortably on room air. GASTROINTESTINAL: Abdomen soft, appropriate TTP, two left side drains in place with serosanguinous output in the bags MUSCULOSKELETAL: Equal tone and mass bilaterally. SKIN: The patient appears somewhat pale. His skin is otherwise warm, dry, soft, appropriate for ethnicity. No other lesions, rashes, or wounds. NEURO: Alert and Oriented X 3. No gross sensory deficits, or cognitive issues. PSYCH: Appropriate affect and mood. Objective Labs Result Diagrams: 02/21/20 05:15 02/21/20 05:15 Labs: Laboratory Results - last 24 hr 02/20/20 02/20/20 02/20/20 10:44 10:44 10:44 WBC RBC Hgb Hct MCV MCH MCHC RDW Plt Count Neut % (Auto) Lymph % (Auto) [place] % (Auto) Eos % (Auto) Baso % (Auto) Neut # (Auto) Lymph # (Auto) [place] # (Auto) Eos # (Auto) Baso # (Auto) Platelet Estimate RBC Morphology PT INR APTT Sodium 135 L Potassium 4.5 Chloride 100 Carbon Dioxide 27 BUN 17 Creatinine 0.67 Estimated GFR > 60.0 BUN/Creatinine Ratio 25.4 H Glucose 120 H Lactate 1.2 Calcium 9.1 Magnesium Total Bilirubin 0.4 AST 67 H ALT 61 H Alkaline Phosphatase 215 H Total Protein 7.5 Albumin 3.4 L Globulin 4.1 Albumin/Globulin Ratio 0.8 L Procalcitonin 0.20 Urine RBC Urine WBC Ur Squamous Epith Cells Amorphous Sediment Urine Bacteria Ur Culture Indicated? Blood Type Antibody Screen Crossmatch 02/20/20 02/20/20 02/20/20 11:00 11:00 12:45 WBC 16.5 H RBC 2.49 L Hgb 7.3 L Hct 22.0 L MCV 88.4 MCH 29.5 MCHC 33.3 RDW 15.8 H Plt Count 1162 H* Neut % (Auto) 88.1 H Lymph % (Auto) 5.5 L [place] % (Auto) 6.2 Eos % (Auto) 0.1 L Baso % (Auto) 0.1 Neut # (Auto) 21750 H Lymph # (Auto) 900 L [place] # (Auto) 1000 H Eos # (Auto) 0 Baso # (Auto) 0 Platelet Estimate Increased on smear RBC Morphology Not Reportable PT 15.2 H INR 1.3 APTT 31 Sodium Potassium Chloride Carbon Dioxide BUN Creatinine Estimated GFR BUN/Creatinine Ratio Glucose Lactate Calcium Magnesium Total Bilirubin AST ALT Alkaline Phosphatase Total Protein Albumin Globulin Albumin/Globulin Ratio Procalcitonin Urine RBC Urine WBC Ur Squamous Epith Cells Amorphous Sediment Urine Bacteria Ur Culture Indicated? Blood Type O Negative Antibody Screen Negative Crossmatch See Detail 02/20/20 02/20/20 02/20/20 17:00 17:30 17:30 WBC 16.4 H RBC 3.03 L Hgb 8.8 L Hct 27.1 L MCV 89.4 MCH 29.0 MCHC 32.5 RDW 15.7 H Plt Count 1193 H* Neut % (Auto) Lymph % (Auto) [place] % (Auto) Eos % (Auto) Baso % (Auto) Neut # (Auto) Lymph # (Auto) [place] # (Auto) Eos # (Auto) Baso # (Auto) Platelet Estimate RBC Morphology PT INR APTT Sodium Potassium Chloride Carbon Dioxide BUN Creatinine Estimated GFR BUN/Creatinine Ratio Glucose Lactate Calcium Magnesium Total Bilirubin AST ALT Alkaline Phosphatase Total Protein Albumin Globulin Albumin/Globulin Ratio Procalcitonin 0.22 Urine RBC None seen Urine WBC 1-5/hpf Ur Squamous Epith Cells 0-1 /hpf Amorphous Sediment 1+ Urine Bacteria Occasional (0-1) Ur Culture Indicated? Specimen cultured Blood Type Antibody Screen Crossmatch 02/21/20 02/21/20 05:15 05:15 WBC 17.3 H RBC 2.64 L Hgb 7.8 L Hct 23.7 L MCV 89.9 MCH 29.7 MCHC 33.1 RDW 15.6 H Plt Count 1060 H* Neut % (Auto) 83.4 H Lymph % (Auto) 7.5 L [place] % (Auto) 8.2 Eos % (Auto) 0.3 L Baso % (Auto) 0.6 Neut # (Auto) 62120 H Lymph # (Auto) 1300 [place] # (Auto) 1400 H Eos # (Auto) 0 Baso # (Auto) 100 Platelet Estimate Increased on smear RBC Morphology Not Reportable PT INR APTT Sodium 133 L Potassium 4.6 Chloride 103 Carbon Dioxide 27 BUN 17 Creatinine 0.69 Estimated GFR > 60.0 BUN/Creatinine Ratio 24.6 H Glucose 115 H Lactate Calcium 8.0 L Magnesium 2.4 H Total Bilirubin AST ALT Alkaline Phosphatase Total Protein Albumin Globulin Albumin/Globulin Ratio Procalcitonin Urine RBC Urine WBC Ur Squamous Epith Cells Amorphous Sediment Urine Bacteria Ur Culture Indicated? Blood Type Antibody Screen Crossmatch Assessment & Plan Assessment and plan (1) Leukocytosis: Problem details: Secondary to abdominal abscess. Dr. Hernandez perc drained both of the abscesses yesterday. Pt on zosyn, WBC 17 (expected bump up bc he had a procedure, will expect it to start coming down in the next 24 hours). Temp 99.7. Fluid cultures pending. Will adjust antibiotics accordingly. Current visit: Yes Status: Acute (2) Alkaline phosphatase elevation: Problem details: This is likely due to his acute illness and dehydration, we will follow closely. Repeat today at noon. Current visit: Yes Status: Acute (3) Transaminitis: Problem details: This is likely due to his acute illness and dehydration, but we will follow closely. Repeat at noon today. Current visit: Yes Status: Acute (4) Thrombocytosis: Problem details: The patient's platelet level is over 1100, which is likely an acute phase reaction, but we will follow it closely. I am not giving him aspirin or DVT prophylaxis at this time because of his anemia and concern for possible ongoing or recurrent bleed. We will recheck a CBC today at noon. Strongly emphasized to patient and nurse that he needs to ambulate frequently. Current visit: Yes Status: Acute (5) Anemia: Problem details: The patient's hemoglobin is 7.8 from 7.3 in the ER. This number is closer to what I would expect after rehydration and 1 unit of PRBC's. I do not think he is actively bleeding. This is likely secondary to postsurgical bleeding into the abscess cavity, which likely bled and stopped. We will repeat a CBC at noon today, and repeat or transfuse as indicated thereafter. Current visit: Yes Status: Acute (6) Status post appendectomy: Problem details: This is a 59-year-old man who is 3 weeks out from open appendectomy for perforated appendicitis. He comes in with an abscess, anemia, leukocytosis, transaminitis, elevated alk-phos, and thrombocytosis. Dr. Hernandez perc drained the abscesses. They were both very bloody and contain gram positive rods. We will keep him on Zosyn for now, and adjust coverage as we get sensitivities on the cultures. We will transfuse him as needed for his anemia. Current visit: Yes Status: Acute (7) Intraperitoneal abscess: Problem details: Very bloody infected fluid. See plan above. Current visit: Yes Status: Acute Assessment & Plan narrative: Advance diet as tolerated Ambulate at least 20 minutes TID repeat CBC and LFT's at noon Transfuse for hgb <7 or symptomatic Closely follow drain output, vitals, and lab results Flush drains Q4 hours, and teach patient and his to flush PO pain med, IV for breakthrough Continue zosyn, adjust for sensitivities when available Time Spent With Patient Time with patient: 15-24 minutes Quality VTE Deep Vein Thrombosis/Pulmonary Embolism Present on Admission: No
[2020-02-21] MEDS: LIDOCAINE PATCH 1 EACH ADH..PATCH TOP (09:17)
[2020-02-21] MEDS: DOCUSATE 100 MG CAPSULE PO ×2 (09:17→19:52)
[2020-02-21 11:59] LABS: Hematocrit 22.3 % (41-53); Hemoglobin 7.5 g/dL (13.5-17.5); Mean Corpuscular HGB Conc 33.7 % (30-36); Mean Corpuscular Hemoglobin 29.9 PG (26-34); Mean Corpuscular Volume 88.9 fL (80-100); Red Blood Cell Count 2.51 X10^6/uL (4.5-5.9); Red Cell Distribution Width 15.6 % (11.6-14.8); White Blood Cell Count 15.5 X10^3/uL (4.5-11.0)
[2020-02-21 12:08] LABS: Platelet Count 971 X10^3/uL (150-400)
[2020-02-21 12:18] LABS: Alanine Aminotransferase 36 IU/L (<50); Albumin 2.6 g/dL (3.5-5.0); Albumin Globulin Ratio 0.8 (1.0-2.8); Alkaline Phosphatase 166 U/L (38-126); Aspartate Aminotransferase 33 IU/L (17-59); Bilirubin Total 0.3 mg/dL (0.2-1.3); Bilirubin Unconjugated 0.2 mg/dL (0.0-1.1); Globulin 3.3 g/dL (1.7-4.1); HEMOLYSIS < 15 (0-50); Total Protein 5.9 g/dL (6.3-8.2)
--- NOTE | 2020-02-21 14:20 | PC.NURSE ---
Pt has had his drains flushed twice this shift per physicians order. Pt has been instructed how to flush his drains himself in preparation for home when medically ready. Flush amount has been subtracted from I/O amt.
[2020-02-21] MEDS: ACETAMINOPHEN 325 MG TABLET 650 MG PO (15:32)
[2020-02-21] MEDS: HYDROMORPHONE 0.5 MG INJ IV ×2 (15:39→22:25)
--- NOTE | 2020-02-21 17:51 | PC.NURSE ---
Addendum entered by Zulma Cardoza R.N. 02/21/20 21:29: Pt flushes drains x 2 as per MD orders using excellent, clean technique. No obstructions. This keno writer observed. 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 Steady gait. States passing flatus. Original Note: Pt lying tense in bed c/o 6-7/10 abdominal pain. States pain is sharp. Pt is taking rapid shallow breaths. Pt was medicated as per emar. Reports some relief in abdominal pain. Ice to abdomen and encouraged ambulation to move gas. Reports very little flatus since this a.m. Pt requests simethicone to treat gas pain. This was discussed with Dr. Woodard via telephone and orders obtained. Per MD, encourage ambulation in this patient. Pt informed.
[2020-02-21] MEDS: SIMETHICONE 80 MG TABLET PO ×2 (18:05→21:30)
[2020-02-21] MEDS: SODIUM CHLORIDE 0.9% FLUSH 10 ML IV (20:30)
[2020-02-22] MEDS: OXYCODONE IR 10 MG TABLET PO ×4 (03:58→20:07)
[2020-02-22] MEDS: PIPERACILLIN-TAZO 3.375 GM/50 ML FROZ.PIGGY IV ×4 (03:58→22:38)
[2020-02-22 05:02] VITALS: BP 130/75; PULSE 79; RESP 16; TEMP 37.2; O2SAT 95
[2020-02-22 06:01] LABS: Add Manual Diff / Slide Review NO; Basophils Absolute Auto 100 /uL (0-100); Basophils Percent Auto 0.7 % (0-2); Eosinophils Absolute Auto 100 /uL (0-450); Eosinophils Percent Auto 0.5 % (2-4); Hematocrit 22.7 % (41-53); Hemoglobin 7.5 g/dL (13.5-17.5); Lymphocytes Absolute Auto 900 /uL (1100-4500); Lymphocytes Percent Auto 5.6 % (25-40); Mean Corpuscular HGB Conc 33.2 % (30-36); Mean Corpuscular Hemoglobin 29.7 PG (26-34); Mean Corpuscular Volume 89.4 fL (80-100); Monocytes Absolute Auto 1100 /uL (0-900); Monocytes Percent Auto 7.2 % (3-14); Neutrophils Absolute Auto 13300 /uL (1500-7000); Red Blood Cell Count 2.53 X10^6/uL (4.5-5.9); Red Cell Distribution Width 15.8 % (11.6-14.8); White Blood Cell Count 15.5 X10^3/uL (4.5-11.0)
--- NOTE | 2020-02-22 06:09 | PC.NURSE ---
Critical lab value, platelets 968. Read back to Carlos Gloria
[2020-02-22 06:10] LABS: Platelet Count 968 X10^3/uL (150-400)
[2020-02-22 06:12] LABS: Platelet Estimate Increased on smear; RBC Morphology Normal Morphology
[2020-02-22 06:28] LABS: BUN Creatinine Ratio 13.8 (6-22); Blood Urea Nitrogen 9 mg/dL (9-20); Calcium 8.1 mg/dL (8.4-10.2); Carbon Dioxide 22 mmol/L (22-32); Chloride 100 mmol/L (98-107); Estimated Glomerular Filt Rate > 60.0 mL/min (>60); Glucose 92 mg/dL (70-100); HEMOLYSIS < 15 (0-50); Magnesium 2.1 mg/dL (1.6-2.3); Potassium 4.2 mmol/L (3.4-5.1); Sodium 130 mmol/L (137-145)
--- NOTE | 2020-02-22 07:22 | PM.PN.1 ---
Subjective Subjective Date Patient Seen: 02/22/20 Time Patient Seen: 15:27 Interval history: No acute events overnight. Pt passing flatus but no stool. Poor appetite. Pain not completely controlled with PO. Needed some IV overnight. Exam Vital Signs (past 8 hours): - 02/21/20 23:30 02/22/20 05:02 Temperature 99.2 F 99.0 F Pulse Rate 89 79 Respiratory Rate 16 16 Blood Pressure 134/77 130/75 Pulse Oximetry 98 95 Oxygen Delivery Method Room Air Oxygen Flow Rate 0 Narrative Exam Narrative: GENERAL: Alert, comfortable, appears stated age. In no acute distress. Answers questions promptly and appropriately. Vital signs noted. HENT: Normocephalic, atraumatic. Hearing intact. Oral mucosa is pink and dry. EYES: Conjunctiva pink, sclera white, no periorbital swelling. CARDIOVASCULAR: Regular rate. No pedal edema. RESPIRATORY: Non-tachypneic, breathing comfortably on room air. GASTROINTESTINAL: Abdomen soft, appropriate TTP, two left side drains in place with serosanguinous output in the bags MUSCULOSKELETAL: Equal tone and mass bilaterally. SKIN: The patient appears somewhat pale. His skin is otherwise warm, dry, soft, appropriate for ethnicity. No other lesions, rashes, or wounds. NEURO: Alert and Oriented X 3. No gross sensory deficits, or cognitive issues. PSYCH: Appropriate affect and mood. Objective Labs Result Diagrams: 02/22/20 05:15 02/22/20 05:15 Labs: Laboratory Results - last 24 hr 02/21/20 02/21/20 02/22/20 11:46 11:46 05:15 WBC 15.5 H 15.5 H RBC 2.51 L 2.53 L Hgb 7.5 L 7.5 L Hct 22.3 L 22.7 L MCV 88.9 89.4 MCH 29.9 29.7 MCHC 33.7 33.2 RDW 15.6 H 15.8 H Plt Count 971 H* 968 H* Neut % (Auto) 86.0 H Lymph % (Auto) 5.6 L [place] % (Auto) 7.2 Eos % (Auto) 0.5 L Baso % (Auto) 0.7 Neut # (Auto) 82435 H Lymph # (Auto) 900 L [place] # (Auto) 1100 H Eos # (Auto) 100 Baso # (Auto) 100 Platelet Estimate Increased on smear RBC Morphology Normal morphology Sodium Potassium Chloride Carbon Dioxide BUN Creatinine Estimated GFR BUN/Creatinine Ratio Glucose Calcium Magnesium Total Bilirubin 0.3 Conjugated Bilirubin 0.0 Unconjugated Bilirubin 0.2 AST 33 ALT 36 Alkaline Phosphatase 166 H Total Protein 5.9 L Albumin 2.6 L Globulin 3.3 Albumin/Globulin Ratio 0.8 L 02/22/20 05:15 WBC RBC Hgb Hct MCV MCH MCHC RDW Plt Count Neut % (Auto) Lymph % (Auto) [place] % (Auto) Eos % (Auto) Baso % (Auto) Neut # (Auto) Lymph # (Auto) [place] # (Auto) Eos # (Auto) Baso # (Auto) Platelet Estimate RBC Morphology Sodium 130 L Potassium 4.2 Chloride 100 Carbon Dioxide 22 BUN 9 Creatinine 0.65 L Estimated GFR > 60.0 BUN/Creatinine Ratio 13.8 Glucose 92 Calcium 8.1 L Magnesium 2.1 Total Bilirubin Conjugated Bilirubin Unconjugated Bilirubin AST ALT Alkaline Phosphatase Total Protein Albumin Globulin Albumin/Globulin Ratio Assessment & Plan Assessment and plan (1) Leukocytosis: Problem details: Secondary to abdominal abscess. WBC 15.5 yesterday and today. Fluid cultures pending. Added flagyl today. Current visit: Yes Status: Acute (2) Alkaline phosphatase elevation: Problem details: Improving with hydration and treatment of infection. Current visit: Yes Status: Acute (3) Transaminitis: Problem details: Resolving with hydration and treatment of infection Current visit: Yes Status: Acute (4) Thrombocytosis: Problem details: Plt >900. Coming down from >1100. I am not giving him aspirin or DVT prophylaxis at this time because of his anemia and concern for possible ongoing or recurrent bleed. Strongly emphasized to patient and nurse that he needs to ambulate frequently. Current visit: Yes Status: Acute (5) Anemia: Problem details: Hgb stable at 7.5 on the last two checks. Anemia is likely secondary to postsurgical bleeding into the abscess cavity, which likely bled and stopped. Will repeat CBC tomorrow AM. Current visit: Yes Status: Acute (6) Status post appendectomy: Problem details: This is a 59-year-old man who is 3 weeks out from open appendectomy for perforated appendicitis. He comes in with an abscess, anemia, leukocytosis, transaminitis, elevated alk-phos, and thrombocytosis. Dr. Dale perc drained the abscesses. They were both very bloody and contain gram positive rods. We will keep him on Zosyn and flagyl for now, and adjust coverage as we get sensitivities on the cultures. We will transfuse him as needed for his anemia. Repeat CT scan today shows smaller abscess, drains in good position. Current visit: Yes Status: Acute (7) Intraperitoneal abscess: Problem details: Very bloody infected fluid. See plan above. Current visit: Yes Status: Acute Assessment & Plan narrative: Lactose free, full liquid diet per patient request Ambulate frequently, at least 20 minutes TID Transfuse for hgb <7 or symptomatic Closely follow drain output, vitals, and lab results Flush drains Q4 hours, and teach patient and his to flush PO pain med, IV for breakthrough, change tylenol to scheduled Continue zosyn, add flagyl Dispo pending stable hgb, pain controlled on PO pain med, WBC resolved Time Spent With Patient Time with patient: 15-24 minutes Quality VTE Deep Vein Thrombosis/Pulmonary Embolism Present on Admission: No
[2020-02-22 07:40] VITALS: BP 143/76; PULSE 78; RESP 17; TEMP 37.2; O2SAT 96
--- NOTE | 2020-02-22 08:25 | DI.CT.S_ITS ---
PROCEDURE: CT ABDOMEN PELVIS W CON INDICATIONS: interval improvement abdominal abscess TECHNIQUE: After the administration of intravenous contrast, 5 mm thick sections acquired from the diaphragm to the symphysis. 5 mm coronal and sagittal reformats were acquired. For radiation dose reduction, the following was used: automated exposure control, adjustment of mA and/or kV according to patient size. COMPARISON: [facility], CT, CT DRAIN APPENDICEAL ABSCESS, 02/20/2020, 15:04. [facility], CT, CT DRAIN APPENDICEAL ABSCESS, 02/20/2020, 15:04. [facility], CT, CT ABDOMEN PELVIS W CON, 02/20/2020, 11:05. [facility], CT, CT ABDOMEN PELVIS W CON, 01/29/2020, 20:08. FINDINGS: Image quality: Excellent. ABDOMEN: Lung bases: Lung bases are clear. Heart size is normal. Solid organs: Liver is normal in size and enhancement. Gallbladder appears free of inflammation or or calcified gallstone. Biliary system is non dilated. Pancreas enhances normally. Spleen is normal in size and enhancement. No adrenal nodules. Kidneys demonstrate normal size and enhancement, without hydronephrosis. Peritoneum and bowel: Bowel loops demonstrate normal wall thickness and caliber. No free air. The previously identified large right abdomen peritoneal abscess measuring up to 9.6 cm AP and 11.5 cm transverse has significantly diminished in size after percutaneous CT-guided drainage placement, 02/20/20. This now measures 7.0 x 8.3 cm in the same dimensions. Additionally, a lobulated second abscess at the posterior border of the inferior aspect of the right hepatic lobe had measured 5.3 x 4.0 cm and has diminished to 4.8 x 3.6 cm. The drainage catheters remain centrally positioned. No new abscess is found. There is improving inflammation at the right lower quadrant involving the peritoneal space in this patient with prior ruptured appendicitis as etiology of the abscess formation discussed. Nodes and vessels: No retroperitoneal or mesenteric adenopathy by size criteria. Aorta and inferior vena cava are normal in size. Miscellaneous: No ventral hernias. PELVIS: Genitourinary: Bladder wall thickness is normal. Miscellaneous: No inguinal hernias or adenopathy. Bones: No suspicious bony lesions. No vertebral body compression fractures. IMPRESSION: Significant reduction in size of 2 separate areas of peritoneal abscess formation, after percutaneous CT-guided drainage catheter placement. No new abscess has developed. Improving inflammatory change at the right lower quadrant in this patient with documented perforated appendicitis. Dictated by: Jaquan Armando M.D. on 02/22/2020 at 9:03 Approved by: Jaquan Armando M.D. on 02/22/2020 at 9:12
[2020-02-22] MEDS: polyethylene glycoL 3350 17 GM POWD.PACK PO ×2 (08:52→20:05)
[2020-02-22] MEDS: SODIUM CHLORIDE 0.9% FLUSH 10 ML IV ×2 (08:52→20:07)
[2020-02-22] MEDS: DOCUSATE 100 MG CAPSULE PO ×2 (08:52→20:06)
[2020-02-22] MEDS: LIDOCAINE PATCH 1 EACH ADH..PATCH TOP (08:52)
[2020-02-22] MEDS: ACETAMINOPHEN 325 MG TABLET 650 MG PO ×3 (08:53→23:41)
[2020-02-22] MEDS: SIMETHICONE 80 MG TABLET PO ×3 (08:53→20:10)
[2020-02-22] MEDS: metroNIDAZOLE 500 MG/100 ML PIGGYBACK 100 MG IV ×3 (10:38→18:48)
[2020-02-22 12:00] VITALS: BP 140/72; PULSE 70; RESP 16; TEMP 37; O2SAT 97
[2020-02-22] MEDS: ENSURE 1 EACH PO ×2 (14:02→20:06)
[2020-02-22 15:40] VITALS: BP 124/72; PULSE 79; RESP 17; TEMP 36.7; O2SAT 97
[2020-02-22 19:28] VITALS: BP 117/68; PULSE 76; RESP 17; TEMP 36.9; O2SAT 97
[2020-02-22] MEDS: SENNOSIDES 8.6 MG TABLET 17.2 MG PO (20:06)
[2020-02-22] MEDS: HYDROMORPHONE 0.5 MG INJ IV (22:38)
[2020-02-22 23:20] VITALS: BP 135/69; PULSE 81; RESP 16; TEMP 36.3; O2SAT 95
[2020-02-22] MEDS: HYDROMORPHONE 1 MG INJ IV (23:46)
[2020-02-23] MEDS: OXYCODONE IR 10 MG TABLET PO ×6 (00:26→21:29)
[2020-02-23] MEDS: metroNIDAZOLE 500 MG/100 ML PIGGYBACK 100 MG IV ×2 (01:40→07:49)
[2020-02-23] MEDS: PIPERACILLIN-TAZO 3.375 GM/50 ML FROZ.PIGGY IV (05:04)
[2020-02-23] MEDS: ACETAMINOPHEN 325 MG TABLET 650 MG PO ×3 (05:30→17:04)
[2020-02-23 05:35] LABS: Add Manual Diff / Slide Review NO; Basophils Absolute Auto 100 /uL (0-100); Basophils Percent Auto 0.4 % (0-2); Eosinophils Absolute Auto 100 /uL (0-450); Eosinophils Percent Auto 0.5 % (2-4); Hematocrit 23.9 % (41-53); Lymphocytes Absolute Auto 1100 /uL (1100-4500); Lymphocytes Percent Auto 7.7 % (25-40); Mean Corpuscular HGB Conc 33.4 % (30-36); Mean Corpuscular Hemoglobin 29.7 PG (26-34); Mean Corpuscular Volume 88.9 fL (80-100); Monocytes Absolute Auto 1100 /uL (0-900); Monocytes Percent Auto 7.9 % (3-14); Neutrophils Absolute Auto 12000 /uL (1500-7000); Neutrophils Percent Auto 83.5 % (50-75); Red Blood Cell Count 2.69 X10^6/uL (4.5-5.9); Red Cell Distribution Width 16.3 % (11.6-14.8); White Blood Cell Count 14.4 X10^3/uL (4.5-11.0)
[2020-02-23 05:37] VITALS: BP 139/73; PULSE 81; RESP 16; TEMP 37.1; O2SAT 95
[2020-02-23 05:40] LABS: BUN Creatinine Ratio 10.8 (6-22); Blood Urea Nitrogen 7 mg/dL (9-20); Calcium 8.1 mg/dL (8.4-10.2); Carbon Dioxide 27 mmol/L (22-32); Chloride 101 mmol/L (98-107); Estimated Glomerular Filt Rate > 60.0 mL/min (>60); Glucose 115 mg/dL (70-100); HEMOLYSIS < 15 (0-50); Magnesium 2.2 mg/dL (1.6-2.3); Sodium 133 mmol/L (137-145)
[2020-02-23 05:51] LABS: Platelet Count 1056 X10^3/uL (150-400)
[2020-02-23 06:04] LABS: Platelet Estimate Increased on smear
--- NOTE | 2020-02-23 06:51 | PC.NURSE ---
NOC Note Pt has critical PLT count at 1056 which of up from yesterday, DR. Saavedra strategic consultant and notified at this time.
[2020-02-23 07:42] VITALS: BP 126/76; PULSE 77; RESP 16; TEMP 35.7; O2SAT 96
[2020-02-23] MEDS: DOCUSATE 100 MG CAPSULE PO ×2 (09:01→21:20)
[2020-02-23] MEDS: polyethylene glycoL 3350 17 GM POWD.PACK PO (09:01)
[2020-02-23] MEDS: ENSURE 1 EACH PO ×2 (09:01→21:29)
[2020-02-23] MEDS: LIDOCAINE PATCH 1 EACH ADH..PATCH TOP (09:01)
[2020-02-23] MEDS: SODIUM CHLORIDE 0.9% FLUSH 10 ML IV ×2 (09:02→21:21)
--- NOTE | 2020-02-23 09:26 | P.PN_ITS ---
Subjective Subjective Date Patient Seen: 02/23/20 Time Patient Seen: 09:26 Interval history: No acute events overnight. Some episodes of uncontrolled pain. Poor appetite. Passing flatus but no stool since prior to admission. Pt complaining of gas pain. Exam Vital Signs (past 8 hours): - 02/23/20 05:37 Temperature 98.7 F Pulse Rate 81 Respiratory Rate 16 Blood Pressure 139/73 Pulse Oximetry 95 Oxygen Delivery Method Room Air Oxygen Flow Rate 0 Narrative Exam Narrative: GENERAL: Alert, comfortable, appears stated age. In no acute distress. Answers questions promptly and appropriately. Vital signs noted. HENT: Normocephalic, atraumatic. Hearing intact. Oral mucosa is pink and dry. EYES: Conjunctiva pink, sclera white, no periorbital swelling. CARDIOVASCULAR: Regular rate. No pedal edema. RESPIRATORY: Non-tachypneic, breathing comfortably on room air. GASTROINTESTINAL: Abdomen soft, appropriate TTP, two right side drains in place with sanguinous output in the bags MUSCULOSKELETAL: Equal tone and mass bilaterally. SKIN: His skin is otherwise warm, dry, soft, appropriate for ethnicity. No other lesions, rashes, or wounds. NEURO: Alert and Oriented X 3. No gross sensory deficits, or cognitive issues. PSYCH: Appropriate affect and mood. Objective Labs Result Diagrams: 02/23/20 05:15 02/23/20 05:15 Labs: Laboratory Results - last 24 hr 02/23/20 02/23/20 05:15 05:15 WBC 14.4 H RBC 2.69 L Hgb 8.0 L Hct 23.9 L MCV 88.9 MCH 29.7 MCHC 33.4 RDW 16.3 H Plt Count 1056 H* Neut % (Auto) 83.5 H Lymph % (Auto) 7.7 L [place] % (Auto) 7.9 Eos % (Auto) 0.5 L Baso % (Auto) 0.4 Neut # (Auto) 90958 H Lymph # (Auto) 1100 [place] # (Auto) 1100 H Eos # (Auto) 100 Baso # (Auto) 100 Platelet Estimate Increased on smear RBC Morphology Not Reportable Sodium 133 L Potassium 4.0 Chloride 101 Carbon Dioxide 27 BUN 7 L Creatinine 0.65 L Estimated GFR > 60.0 BUN/Creatinine Ratio 10.8 Glucose 115 H Calcium 8.1 L Magnesium 2.2 Assessment & Plan Assessment and plan (1) Leukocytosis: Problem details: Secondary to abdominal abscess. WBC down to 14 today. Fluid cultures pending. Changed flagyl to PO and changed zosyn to cipro, in anticipation of dispo with PO antibiotics. Current visit: Yes Status: Acute (2) Alkaline phosphatase elevation: Problem details: Improving with hydration and treatment of infection. Current visit: Yes Status: Acute (3) Transaminitis: Problem details: Resolving with hydration and treatment of infection Current visit: Yes Status: Acute (4) Thrombocytosis: Problem details: Plt hovering around 1000. I am not giving him aspirin or DVT prophylaxis at this time because of his anemia and concern for possible ongoing or recurrent bleed. Strongly emphasized to patient the risk of clotting and nurse that he needs to ambulate frequently. Current visit: Yes Status: Acute (5) Anemia: Problem details: Hgb stable at 8.0. Anemia is likely secondary to postsurgical bleeding into the abscess cavity, which likely bled and stopped. There is a risk of rebleed is unclear, but definitely not zero. Will repeat CBC daily while patient is in hospital. Current visit: Yes Status: Acute (6) Status post appendectomy: Problem details: This is a 59-year-old man who is 3 weeks out from open appendectomy for perforated appendicitis. He came in with an abscess, anemia, leukocytosis, transaminitis, elevated alk-phos, and thrombocytosis. Dr. Hunter perc drained the abscesses. They were both very bloody and contain gram positive rods. We will keep him on cipro and flagyl for now. We will transfuse him as needed for his anemia. Pt has persistent WBC, and is not tolerating adequate PO. C/o gas pain, has not passed any stool since before admission to hospital. Current visit: Yes Status: Acute (7) Intraperitoneal abscess: Problem details: Very bloody infected fluid. See plan above. Current visit: Yes Status: Acute Assessment & Plan narrative: Lactose free, full liquid diet per patient request--dietitian to recommend lactose free supplements Ambulate frequently, at least 20 minutes TID Hold aspirin and DVT ppx because of anemia Transfuse for hgb <7 or symptomatic Closely follow drain output, vitals, and lab results Flush drains Q4 hours, and teach patient and his to flush PO pain med, IV for breakthrough, scheduled tylenol, adding scheduled gabapentin Change zosyn to cipro, change flagyl to PO Dispo pending stable hgb, pain controlled on PO pain med, WBC resolved, pt able to tolerate PO diet and PO antibiotics Added simethicone QID per patient request due to gas pain Scheduled zofran added ACHS for nausea Time Spent With Patient Time with patient: 15-24 minutes Quality VTE Deep Vein Thrombosis/Pulmonary Embolism Present on Admission: No
[2020-02-23 10:10] VITALS: BMI 25.5
[2020-02-23] MEDS: ONDANSETRON 4 MG/2 ML INJ IV ×2 (10:12→17:03)
[2020-02-23] MEDS: CIPROFLOXACIN 400 MG/200 ML PIGGYBACK 200 MG IV ×2 (10:12→21:22)
--- NOTE | 2020-02-23 10:16 | DIET.PN ---
Addendum entered by Jeanne Blanca 02/24/20 12:25: Pt enjoys the Javi/soymilk smoothies providing 25% of PRO as well as lactose free vanilla yogurt providing 10% of PRO. Pt reports anti-gas and anti emetic meds are helping his appetite. Will continue course. Diet changed to general, aides will work with pt to ensure he is comfortable with food selection as he has anxiety about hard textures. Diet order reccs include lactose free and soft foods. Original Note: Dietary Progress Note Assessment: 59y M admitted for abd abcess secondary to open appendectomy for perforated appendix 3w ago. Pt referred to nutrition to optimize PRO intake as pt on full liquid diet c severe lactose intolerance and poor appetite. Pt reports intermittent nausea c poor appetite. Bothered by the smell of his cream of wheat this am. Pt reports severe lactose intolerance. POs <50% of EERs may contribute to slow abd healing. Dr. Marvin ordered antiemetic 30min before meals to help c intake. Pt is weight stable since pre-surgery 3w ago. Pt feels he would be able to tolerate a scrambled egg, will need to clear c Yon before sending from kitchen. Discussed importance of PRO intake for abd healing c goal of 90g/d for next several weeks. Will continue education. HT: 172.7cm WT: 76.2 UBW: 74kg BMI: 25.5 Labs: hgb 8 L MNA: 12 [place]: 20 Nutrition Diagnosis: poor wound healing r/t poor appetite causing negative nitrogen balance aeb 3w s/p open appendectomy for perforated appendicitis c current abd abcess, pt on full liquid diet c severe lactose intolerance, POs <50% EERs for past 4d. Interventions: Pt has not gotten ahead of nausea so we will send Javi with today's lunch providing 20% PRO needs. This is a small, 6oz, low sugar ONS which should be easy to tolerate. Kitchen has prepared Javi/soymilk smoothie to send c dinner tonight which provides additional 25% PRO needs. RD is here Wednesday and will assess ONS acceptance and nausea to continue working c pt to achieve 100% PRO reccs. Diet Order: Full Liquid-lactose free EER: 2100kcals, 90g PRO (1.2 g/kg per wound healing), 2.3L fluids Monitoring/Evaluations: ONS tolerance, nausea, continued teaching
[2020-02-23 11:30] VITALS: BP 117/65; PULSE 70; RESP 18; TEMP 36.8; O2SAT 96
[2020-02-23] MEDS: metroNIDAZOLE 500 MG TABLET PO ×3 (12:20→21:20)
[2020-02-23] MEDS: SIMETHICONE 80 MG TABLET PO ×3 (12:20→21:20)
--- NOTE | 2020-02-23 13:31 | CM.DPC ---
Addendum entered by Veronique Frye LPN 02/24/20 13:21: Was updated by Dr. Woodard yesterday late afternoon that pt would likely be going home with the drains is place for a prolonged amount of time and that he and his would need to be taught to do this. He would also needs prefilled syringes as part of the drain flushes that would need to be done 2x day. Agreed to follow up today with the RN coordinator as well as nursing staff working with pt to see what all might be involved in this. Discussed possible HH but pt with no PCP at this time. Dr. Woodard agreed that the [facility] team would follow serve in this capacity for the HH agency. Addendum entered by Veronique Frye LPN 02/23/20 13:39: It is noted that pt is seeing the finish filer as he is severely lactose intolerant and this is adding to his difficulty tolerating diet advancement as well as overall wound healing. See Jeanne's dietary consult note. She plans to see him again this weekend. Original Note: DCP: continued: case received, EMR reviewed. Discussed in Team Rounds. Note that pt was admitted here to 01/28 and underwent an open appendectomy for treatment of a perforated appendix. He did d/c to home setting on 02/02. He is currently recovering from an abdominal abscess. Dr. Woodard saw pt this afternoon: outlines plan for care with a d/c to home setting once pt is tolerating his diet, his pain and nausea are under control, his WBC is stabilized and he is doing ok with transition from IV to oral antibiotics (ordered today). Will be following this weekend.
[2020-02-23] MEDS: GABAPENTIN 100 MG CAPSULE 200 MG PO ×2 (14:00→21:20)
--- NOTE | 2020-02-23 15:25 | PC.NURSE ---
Celia shift note: Patient up ambulating in hallway and in room, had a loose large brown BM this shift. Flushing both drains to abdomen as ordered. Right upper drain with serousanguinous drainage 35 ml output. Right lower drain with serous drainage 10 ml. Calls appropriately for staff assist.
[2020-02-23 16:00] VITALS: BP 110/62; PULSE 70; RESP 16; TEMP 36.5; O2SAT 97
[2020-02-23 21:00] VITALS: BP 120/69; PULSE 77; RESP 16; TEMP 36.9; O2SAT 98
[2020-02-23] MEDS: SENNOSIDES 8.6 MG TABLET 17.2 MG PO (21:20)
[2020-02-23] MEDS: HYDROMORPHONE 1 MG INJ IV (22:34)
[2020-02-24] VITALS (7 sets, daily range): BP systolic 103–133; BP diastolic 64–76; PULSE 62–98; RESP 15–18; TEMP 36.7–37; O2SAT 96–98
[2020-02-24] MEDS: ACETAMINOPHEN 325 MG TABLET 650 MG PO ×4 (01:00→16:34)
[2020-02-24] MEDS: OXYCODONE IR 10 MG TABLET PO ×5 (01:33→19:18)
[2020-02-24] MEDS: HYDROMORPHONE 1 MG INJ IV ×2 (01:34→06:57)
[2020-02-24] MEDS: SODIUM CHLORIDE 0.9% FLUSH 10 ML IV ×3 (01:36→20:48)
[2020-02-24 05:47] LABS: Add Manual Diff / Slide Review NO; Basophils Absolute Auto 200 /uL (0-100); Basophils Percent Auto 1.2 % (0-2); Eosinophils Absolute Auto 100 /uL (0-450); Eosinophils Percent Auto 0.9 % (2-4); Hemoglobin 8.3 g/dL (13.5-17.5); Lymphocytes Absolute Auto 1300 /uL (1100-4500); Lymphocytes Percent Auto 8.7 % (25-40); Mean Corpuscular HGB Conc 33.2 % (30-36); Mean Corpuscular Hemoglobin 29.5 PG (26-34); Mean Corpuscular Volume 88.9 fL (80-100); Monocytes Absolute Auto 1100 /uL (0-900); Monocytes Percent Auto 7.4 % (3-14); Neutrophils Absolute Auto 11800 /uL (1500-7000); Neutrophils Percent Auto 81.8 % (50-75); Red Blood Cell Count 2.81 X10^6/uL (4.5-5.9); Red Cell Distribution Width 16.1 % (11.6-14.8); White Blood Cell Count 14.4 X10^3/uL (4.5-11.0)
[2020-02-24 05:59] LABS: BUN Creatinine Ratio 17.9 (6-22); Blood Urea Nitrogen 12 mg/dL (9-20); Calcium 8.3 mg/dL (8.4-10.2); Carbon Dioxide 26 mmol/L (22-32); Chloride 100 mmol/L (98-107); Estimated Glomerular Filt Rate > 60.0 mL/min (>60); Glucose 127 mg/dL (70-100); HEMOLYSIS < 15 (0-50); Magnesium 2.1 mg/dL (1.6-2.3); Potassium 3.9 mmol/L (3.4-5.1); Sodium 133 mmol/L (137-145)
[2020-02-24 06:10] LABS: Platelet Count 1057 X10^3/uL (150-400)
[2020-02-24 06:11] LABS: Anisocytosis 1+; Platelet Estimate Increased on smear
--- NOTE | 2020-02-24 06:28 | PC.NURSE ---
Addendum entered by Shavonne Paris R.N. 02/24/20 06:40: Paged then spoke to Dr. Woodard regarding critical plt values. No new orders provided. Original Note: NOC shift. pt AO and receptive to care. C/O abdominal pain and swelling to drain site areas. Up to BR SBA while infusing ABX and IND when disconnected. Reporting passing gas with no relief to pain. Administered 650mg Tylenol at approximately 0100 and 1mg IV Dilaudid with PO 10mg Oxycodone at around 0135 with a decrease in pain. Flushed both drain sites per order, pt tolerated well. Full liquid diet is patient driven. Lab called at 0600 with critical value of plt level from 968 yesterday to 1057 this morning. H&H is low but improving. 1 loose BM reported early this morning. Encouraging water for concentrated urine.
[2020-02-24] MEDS: ONDANSETRON 4 MG/2 ML INJ IV ×3 (07:50→16:34)
[2020-02-24] MEDS: metroNIDAZOLE 500 MG TABLET PO ×4 (08:03→20:45)
[2020-02-24] MEDS: DOCUSATE 100 MG CAPSULE PO ×2 (08:03→20:46)
[2020-02-24] MEDS: SIMETHICONE 80 MG TABLET PO ×4 (08:03→20:46)
[2020-02-24] MEDS: ENSURE 1 EACH PO ×2 (08:03→20:47)
[2020-02-24] MEDS: GABAPENTIN 100 MG CAPSULE 200 MG PO ×3 (08:04→20:45)
[2020-02-24] MEDS: CIPROFLOXACIN 400 MG/200 ML PIGGYBACK 200 MG IV ×2 (10:00→20:52)
--- NOTE | 2020-02-24 13:27 | CM.DPC ---
Addendum entered by Veronique Frye LPN 02/24/20 14:55: Met with pt now in followup to discussion with Dr. Saavedra. Explained the service which includes the drain flushing supplies. Gave him the [facility] brochure. Pt confirms that he has been doing the flushes. He is also up and mobilizing. His will be here on the day of d/c to do some training. P: will be following. Addendum entered by Veronique Frye LPN 02/24/20 14:37: Dr. Saavedra's note is now available. This plus the Face/Face is faxed now to [facility]. Plan at this time is CT to check on status of the one drain and perhaps removal of same. See Dr. Bridges's note for details. Original Note: DCP: continued: Discussed case in Team Rounds this morning as planned with focus on the drain management in the home setting. LAXMI Tatum who has worked in the home health setting confirms that the pre-filled sterile solution for drain flushes in used often in . The agency provides the materials needed for the drain management and oversight plus teach to pt and family as part of the service. Pt and his would need to feel comfortable with the process and would need teaching in the hospital also in prep for a d/c to home setting. Spoke just now with Dr. Saavedra, here to see pt. He clarifies that pt will likely need several more days in the hospital before he is stable enough to sent back to his home on [facility]. He agrees with RN need, has signed the Face/Face document and made it clear that it would be Dr. Woodard who serves as the PCP figure in this process. Went to check in with pt but found him in process of being examined by Dr. Saavedra. agency list: only agency servicing [facility] is [facility]. Have called in this referral and will fax initial clinical documentation. Will need RN orders and completed Face/Face at d/c. Referral is accepted. The agency typically see's patients on [place] on Tuesdays and .
--- NOTE | 2020-02-24 13:52 | PC.NURSE ---
Addendum entered by Kailyn Pina R.N. 02/24/20 15:18: Posterior/lower drain output amount 40 ml, serousanguinous drainage. Anterior/upper drain output amount 50 ml. sanguinous Original Note: Day shift note: Patient awake, alert, and calm. Ambulating in hallway and in room independently. I spoke with Jesus (patients ) and updated regarding plan of care. Dr. Saavedra at patients bedside this shift. VSS and afebrile. Pain controlled with PO medication as ordered with adequate relief. Calls appropriately for staff assist. Diet change to regular (lactose free) soft foods, per dietary/Dr. Woodard. No nausea, or vomiting.
--- NOTE | 2020-02-24 13:57 | PM.PN.1 ---
Subjective Subjective Date Patient Seen: 02/24/20 Time Patient Seen: 13:57 Interval history: Patient post drainage of 2 large intraperitoneal abscesses. In general feeling better. Still has periods where he feels uncomfortable. He is moving his bowels and recently had a loose stool. He is ambulating in the halls. He is inquiring about discharge but not really anxious to go home. Exam Vital Signs (past 8 hours): - 02/24/20 08:00 02/24/20 12:00 Temperature 98.5 F 98.4 F Pulse Rate 69 63 Respiratory Rate 16 16 Blood Pressure 117/70 121/64 Pulse Oximetry 96 97 Oxygen Delivery Method Room Air Oxygen Flow Rate 0 Narrative Exam Narrative: Cooperative no apparent distress. His lower abdomen is little distended. His abdomen is soft. No unusual tenderness. Drain sites are without cellulitis. Aspirated and flushed both drains. The superior drain flushed easily and aspirated easily. The inferior-most drain however flushed with difficulty and caused him pain. I attempted to aspirate this and except for the fluid I injected could not get anything. Objective Labs Result Diagrams: 02/24/20 05:34 02/24/20 05:34 Labs: Laboratory Results - last 24 hr 02/24/20 02/24/20 05:34 05:34 WBC 14.4 H RBC 2.81 L Hgb 8.3 L Hct 25.0 L MCV 88.9 MCH 29.5 MCHC 33.2 RDW 16.1 H Plt Count 1057 H* Neut % (Auto) 81.8 H Lymph % (Auto) 8.7 L [place] % (Auto) 7.4 Eos % (Auto) 0.9 L Baso % (Auto) 1.2 Neut # (Auto) 95494 H Lymph # (Auto) 1300 [place] # (Auto) 1100 H Eos # (Auto) 100 Baso # (Auto) 200 H Platelet Estimate Increased on smear RBC Morphology See below Anisocytosis 1+ H Sodium 133 L Potassium 3.9 Chloride 100 Carbon Dioxide 26 BUN 12 Creatinine 0.67 Estimated GFR > 60.0 BUN/Creatinine Ratio 17.9 Glucose 127 H Calcium 8.3 L Magnesium 2.1 Assessment & Plan Assessment & Plan narrative: I reviewed the patient's CT before the attempt at flushing and again after. I believe the most inferior drain is in the cavity that was near the tip of the liver. This is the smaller of the 2 cavities and I suspect what has happened is it is closed and collapsed and now attempting to flush it results in pain because of expanding a cavity that no longer exists. It is possible that the tube came out into the muscle and I am injecting into muscle but I do not think that is likely given the CT appearance, and the fact that the catheter does not appear to have backed out at all. Therefore I will stop flushing the most inferior drain which the patient thought was the larger of the 2 cavities. I will continue to flush and aspirate the upper however. White blood cell count is CBC has been ordered for the morning. Patient remains anemic with acute blood loss anemia but has stabilized. Patient has thrombocytosis most likely an acute phase reactant. Until bleeding stops and there is no blood in the drainage I would hesitate to place him on any count of anticoagulation. Continue sequential compression devices. Discharge planning has begun. He has been instructed in drain care but is not real cough it yet about that. We may repeat his CT scan tomorrow Wednesday in which case we may be able to remove 1 of the drains. Quality VTE Deep Vein Thrombosis/Pulmonary Embolism Present on Admission: No
[2020-02-24] MEDS: OXYCODONE IR 5 MG TABLET PO (17:39)
[2020-02-24] MEDS: polyethylene glycoL 3350 17 GM POWD.PACK PO (20:44)
[2020-02-24] MEDS: SENNOSIDES 8.6 MG TABLET 17.2 MG PO (20:45)
[2020-02-24] MEDS: HYDROMORPHONE 0.5 MG INJ IV (22:27)
--- NOTE | 2020-02-24 22:29 | PC.NURSE ---
Pt upper drain had no output this shift and per day RN report, MD had advised not to flush. Lower drain was flushed and had 10 mLs sero sanguinous fluid. Pt rates his pain 4-7/10 and did not have good pain control on 5 mg of oxycodone. 10 mg was much better but he also required 0.5 mg dilaudid IVP. Pt had a loose BM 02/23/20, has + BTs x 4. He is only able to eat jello, smoothies, juice and Ensure. Solid food makes him nauseous. He is walking in the halls, voiding in a urinal. S1, S2, LS clear.
[2020-02-25] MEDS: ACETAMINOPHEN 325 MG TABLET 650 MG PO ×4 (00:14→18:00)
--- NOTE | 2020-02-25 01:38 | PC.NURSE ---
NOC shift. pt AO and receptive to care. C/O moderate pain and tenderness to right abdominal flank. Drains x2 are open to air, Upper drain being flushed with 10mL NS to patient and 10mL NS to bag, no flushing to lower drain per pt and report. Tylenol 650mg administered at approximately 0015 for 6/10 pain and pt ambulated hallways IND in hopes to decrease pressure in abdomen. Refusing SCD's. IND to BR and urine is clear straw-colored yellow. Infusing intermitted ABX to left AC, Left forearm PIV looks appropriate.
[2020-02-25] MEDS: OXYCODONE IR 10 MG TABLET PO ×5 (01:56→22:07)
[2020-02-25 06:39] LABS: Add Manual Diff / Slide Review NO; Basophils Absolute Auto 100 /uL (0-100); Basophils Percent Auto 0.9 % (0-2); Eosinophils Absolute Auto 100 /uL (0-450); Eosinophils Percent Auto 0.6 % (2-4); Hematocrit 25.6 % (41-53); Hemoglobin 8.5 g/dL (13.5-17.5); Lymphocytes Absolute Auto 1300 /uL (1100-4500); Lymphocytes Percent Auto 9.6 % (25-40); Mean Corpuscular HGB Conc 33.1 % (30-36); Mean Corpuscular Hemoglobin 29.5 PG (26-34); Mean Corpuscular Volume 89.1 fL (80-100); Monocytes Absolute Auto 1000 /uL (0-900); Monocytes Percent Auto 7.4 % (3-14); Neutrophils Absolute Auto 10700 /uL (1500-7000); Neutrophils Percent Auto 81.5 % (50-75); Red Blood Cell Count 2.87 X10^6/uL (4.5-5.9); Red Cell Distribution Width 16.4 % (11.6-14.8); White Blood Cell Count 13.2 X10^3/uL (4.5-11.0)
[2020-02-25 06:46] LABS: BUN Creatinine Ratio 10.1 (6-22); Blood Urea Nitrogen 7 mg/dL (9-20); Calcium 8.4 mg/dL (8.4-10.2); Carbon Dioxide 28 mmol/L (22-32); Chloride 102 mmol/L (98-107); Estimated Glomerular Filt Rate > 60.0 mL/min (>60); Glucose 106 mg/dL (70-100); HEMOLYSIS < 15 (0-50); Potassium 3.7 mmol/L (3.4-5.1); Sodium 135 mmol/L (137-145)
[2020-02-25 07:00] LABS: Procalcitonin 0.13 ng/mL (<0.5)
[2020-02-25 07:01] VITALS: BP 120/69; PULSE 79; RESP 16; TEMP 37; O2SAT 97
[2020-02-25 07:02] LABS: Platelet Count 1033 X10^3/uL (150-400)
[2020-02-25 07:35] VITALS: BP 129/72; PULSE 63; RESP 16; TEMP 36.4; O2SAT 96
[2020-02-25 08:01] LABS: Anisocytosis 1+; Platelet Estimate Increased on smear
[2020-02-25] MEDS: ONDANSETRON 4 MG/2 ML INJ IV ×3 (08:14→16:19)
[2020-02-25] MEDS: SIMETHICONE 80 MG TABLET PO ×4 (10:01→20:36)
[2020-02-25] MEDS: DOCUSATE 100 MG CAPSULE PO ×2 (10:01→20:36)
[2020-02-25] MEDS: metroNIDAZOLE 500 MG TABLET PO ×4 (10:02→20:36)
[2020-02-25] MEDS: ENSURE 1 EACH PO ×2 (10:02→20:40)
[2020-02-25] MEDS: GABAPENTIN 100 MG CAPSULE 200 MG PO ×3 (10:03→20:42)
[2020-02-25] MEDS: CIPROFLOXACIN 400 MG/200 ML PIGGYBACK 200 MG IV ×2 (10:07→20:46)
[2020-02-25 11:29] VITALS: BP 128/67; PULSE 71; RESP 16; TEMP 36.7; O2SAT 96
--- NOTE | 2020-02-25 14:35 | PM.PNPO.1 ---
Subjective Subjective Date Patient Seen: 02/25/20 Time Patient Seen: 14:00 Interval history: Feels well. Eating okay. Exam Vital Signs (past 8 hours): - 02/25/20 07:01 02/25/20 07:35 02/25/20 11:29 Temperature 98.6 F 97.5 F L 98.0 F Pulse Rate 79 63 71 Respiratory Rate 16 16 16 Blood Pressure 120/69 129/72 128/67 Pulse Oximetry 97 96 96 Oxygen Delivery Method Room Air Oxygen Flow Rate 0 Narrative Exam Narrative: Abdomen is soft nontender. There is no guarding and no fullness in the right abdomen. I flushed both drainage tubes. The larger of the 2 I injected into the patient aspirated as well. The lower of the 2 I injected a very small amount of fluid and opened it to the bag. Objective Labs Result Diagrams: 02/25/20 06:15 02/25/20 06:15 Labs: Laboratory Results - last 24 hr 02/25/20 02/25/20 02/25/20 06:15 06:15 06:15 WBC 13.2 H RBC 2.87 L Hgb 8.5 L Hct 25.6 L MCV 89.1 MCH 29.5 MCHC 33.1 RDW 16.4 H Plt Count 1033 H* Neut % (Auto) 81.5 H Lymph % (Auto) 9.6 L [place] % (Auto) 7.4 Eos % (Auto) 0.6 L Baso % (Auto) 0.9 Neut # (Auto) 42594 H Lymph # (Auto) 1300 [place] # (Auto) 1000 H Eos # (Auto) 100 Baso # (Auto) 100 Platelet Estimate Increased on smear RBC Morphology See below Anisocytosis 1+ H Sodium 135 L Potassium 3.7 Chloride 102 Carbon Dioxide 28 BUN 7 L Creatinine 0.69 Estimated GFR > 60.0 BUN/Creatinine Ratio 10.1 Glucose 106 H Calcium 8.4 Magnesium 2.0 Procalcitonin 0.13 Assessment & Plan Post-op Postoperative Postoperative status narrative: Patient with 2 abscesses. Postoperative plan narrative: Continue p.o. and/IV antibiotics. WBC count is down a little bit. I would like to repeat his CT scan to see what is happening with these cavities. I suspect that the lower drain can be removed. The upper still is able to be flushed and aspirated. Will see how much it is gone down. The potential for discharge on Wednesday I think is real depending on the findings of the CT scan. Quality VTE Deep Vein Thrombosis/Pulmonary Embolism Present on Admission: No
[2020-02-25 15:46] VITALS: BP 122/75; PULSE 65; RESP 18; TEMP 36.7; O2SAT 97
[2020-02-25 20:30] VITALS: BP 109/65; PULSE 68; RESP 17; TEMP 36.8
[2020-02-25] MEDS: polyethylene glycoL 3350 17 GM POWD.PACK PO (20:35)
[2020-02-25] MEDS: SENNOSIDES 8.6 MG TABLET 17.2 MG PO (20:36)
[2020-02-25] MEDS: SODIUM CHLORIDE 0.9% FLUSH 10 ML IV (20:43)
[2020-02-25 23:45] VITALS: BP 134/74; PULSE 80; RESP 16; TEMP 37.2; O2SAT 97
[2020-02-26] MEDS: ACETAMINOPHEN 325 MG TABLET 650 MG PO ×4 (00:36→17:00)
[2020-02-26] MEDS: OXYCODONE IR 10 MG TABLET PO ×5 (02:25→20:58)
--- NOTE | 2020-02-26 06:51 | PC.NURSE ---
NOC Note: Pt reported discomfort and swelling in left FA above the wrist IV. IV was removed and cath was intact. Within 30min pt reported an improvement in the discomfort.
[2020-02-26 07:25] LABS: Add Manual Diff / Slide Review NO; Basophils Absolute Auto 100 /uL (0-100); Basophils Percent Auto 0.8 % (0-2); Eosinophils Absolute Auto 100 /uL (0-450); Eosinophils Percent Auto 0.7 % (2-4); Hematocrit 26.2 % (41-53); Hemoglobin 8.6 g/dL (13.5-17.5); Lymphocytes Absolute Auto 1300 /uL (1100-4500); Lymphocytes Percent Auto 10.4 % (25-40); Mean Corpuscular HGB Conc 32.9 % (30-36); Mean Corpuscular Hemoglobin 29.4 PG (26-34); Mean Corpuscular Volume 89.3 fL (80-100); Monocytes Absolute Auto 1100 /uL (0-900); Monocytes Percent Auto 8.5 % (3-14); Neutrophils Absolute Auto 10200 /uL (1500-7000); Neutrophils Percent Auto 79.6 % (50-75); Red Blood Cell Count 2.94 X10^6/uL (4.5-5.9); Red Cell Distribution Width 16.5 % (11.6-14.8); White Blood Cell Count 12.8 X10^3/uL (4.5-11.0)
[2020-02-26 07:31] LABS: Platelet Count 1091 X10^3/uL (150-400)
[2020-02-26 07:41] LABS: BUN Creatinine Ratio 16.4 (6-22); Blood Urea Nitrogen 10 mg/dL (9-20); Calcium 8.4 mg/dL (8.4-10.2); Carbon Dioxide 27 mmol/L (22-32); Chloride 102 mmol/L (98-107); Estimated Glomerular Filt Rate > 60.0 mL/min (>60); Glucose 119 mg/dL (70-100); HEMOLYSIS < 15 (0-50); Sodium 134 mmol/L (137-145)
[2020-02-26 07:46] LABS: Platelet Estimate Increased on smear
[2020-02-26] MEDS: ONDANSETRON 4 MG/2 ML INJ IV ×3 (08:23→16:51)
[2020-02-26 09:00] VITALS: BP 134/81; PULSE 64; RESP 16; TEMP 37; O2SAT 98
--- NOTE | 2020-02-26 09:00 | DI.CT.S_ITS ---
PROCEDURE: CT ABDOMEN PELVIS WO CON INDICATIONS: f/u abscess drainage. Prior reported perforated appendicitis. TECHNIQUE: After the administration of oral contrast, 5 mm thick sections acquired from the diaphragms to the symphysis. 5 mm coronal and sagittal reformats were performed. For radiation dose reduction, the following was used: automated exposure control, adjustment of mA and/or kV according to patient size. COMPARISON: [facility], CT, CT ABDOMEN PELVIS W CON, 02/22/2020, 8:28. FINDINGS: Image quality: Limited by absence of intravenous contrast. ABDOMEN: Lung bases: Lung bases are clear. Heart size is normal. Solid organs: Liver is normal in size. Gallbladder appears normal. Pancreas is normal in size. Spleen is normal in size. No adrenal nodules. Both kidneys are normal in size, without hydronephrosis or nephrolithiasis. Peritoneum and bowel: Bowel loops demonstrate normal wall thickness and caliber. No free fluid or air. 2 dominant abscess cavities are again seen containing percutaneous drains, further having mildly diminished in size. The more superior and smaller abscess had measured 4.9 x 3.8 cm 02/22/20 and now measures 4.4 x 3.7 cm in the same areas. The larger more inferior abscess had measured 7.0 x 8.3 cm and now measures 6.9 x 7.9 cm. Internal gas bubbles are present at multiple levels, indicating thick material or multiple internal septations. No new abscess has developed. Nodes and vessels: No retroperitoneal or mesenteric adenopathy by size criteria. Aorta and inferior vena cava are normal in size. Miscellaneous: No ventral hernias. PELVIS: Genitourinary: Bladder wall thickness is normal. Miscellaneous: No inguinal hernias or adenopathy. Peritoneal inflammation is again seen within the right lower quadrant but no new abscess has formed. Bones: No suspicious bony lesions. No vertebral body compression fractures. IMPRESSION: Small interval reduction in size of each of the 2 dominant abscess cavities seen within the upper and lower abdomen respectively. No new abscess has developed. Quality of visualization is somewhat limited by absence of intravenous contrast. Peritoneal inflammation remains in the right lower quadrant area of reported prior perforated appendicitis. Dictated by: Jaquan Armando M.D. on 02/26/2020 at 10:00 Approved by: Jaquan Armando M.D. on 02/26/2020 at 10:07
[2020-02-26] MEDS: polyethylene glycoL 3350 17 GM POWD.PACK PO (09:34)
[2020-02-26] MEDS: SIMETHICONE 80 MG TABLET PO ×4 (09:34→20:58)
[2020-02-26] MEDS: FERROUS SULFATE 325 MG TABLET PO (09:34)
[2020-02-26] MEDS: DOCUSATE 100 MG CAPSULE PO ×2 (09:35→20:59)
[2020-02-26] MEDS: GABAPENTIN 100 MG CAPSULE 200 MG PO ×3 (09:39→21:19)
[2020-02-26] MEDS: MULTIVIT,CALC,MINS/IRON/FOLIC 1 TABLET 1 TAB PO (09:39)
[2020-02-26] MEDS: metroNIDAZOLE 500 MG TABLET PO ×4 (10:31→20:58)
[2020-02-26] MEDS: SODIUM CHLORIDE 0.9% FLUSH 10 ML IV ×2 (10:32→21:00)
[2020-02-26] MEDS: CIPROFLOXACIN 400 MG/200 ML PIGGYBACK 200 MG IV ×2 (10:33→21:19)
--- NOTE | 2020-02-26 11:21 | PM.PN.1 ---
Subjective Subjective Date Patient Seen: 02/26/20 Time Patient Seen: 11:21 Interval history: No acute overnight events. Feels okay not eating much poor appetite abdominal pain stable Exam Vital Signs (past 8 hours): - 02/26/20 09:00 Temperature 98.6 F Pulse Rate 64 Respiratory Rate 16 Blood Pressure 134/81 Pulse Oximetry 98 Oxygen Delivery Method Room Air Oxygen Flow Rate 0 Narrative Exam Narrative: General adult male alert oriented in no acute distress Abdomen tender right lower quadrant with mild fullness Objective Labs Result Diagrams: 02/26/20 07:04 02/26/20 07:04 Labs: Laboratory Results - last 24 hr 02/26/20 02/26/20 07:04 07:04 WBC 12.8 H RBC 2.94 L Hgb 8.6 L Hct 26.2 L MCV 89.3 MCH 29.4 MCHC 32.9 RDW 16.5 H Plt Count 1091 H* Neut % (Auto) 79.6 H Lymph % (Auto) 10.4 L [place] % (Auto) 8.5 Eos % (Auto) 0.7 L Baso % (Auto) 0.8 Neut # (Auto) 19639 H Lymph # (Auto) 1300 [place] # (Auto) 1100 H Eos # (Auto) 100 Baso # (Auto) 100 Platelet Estimate Increased on smear RBC Morphology Not Reportable Sodium 134 L Potassium 4.0 Chloride 102 Carbon Dioxide 27 BUN 10 Creatinine 0.61 L Estimated GFR > 60.0 BUN/Creatinine Ratio 16.4 Glucose 119 H Calcium 8.4 Magnesium 2.0 Assessment & Plan Assessment & Plan narrative: 59-year-old man whom with a intra-abdominal abscess following perforated appendicitis. I reviewed his laboratory studies which demonstrate a down trending white blood cell count of 13 today and he has been afebrile. CT abdomen pelvis is reviewed and demonstrates a small interval decrease in size of the two intra abdominal abscesses. -Continue both percutaneous drains for now -Continue Ciprofloxacin and Flagyl -SCDs and ambulation Quality VTE Deep Vein Thrombosis/Pulmonary Embolism Present on Admission: No
[2020-02-26 12:09] VITALS: BP 128/73; PULSE 73; RESP 16; TEMP 36.8; O2SAT 97
[2020-02-26] MEDS: OXYCODONE ER 10 MG TAB PO ×2 (12:28→21:19)
--- NOTE | 2020-02-26 14:29 | PC.NURSE ---
SHIFT SUMMARY: PATIENT HAD HIS CT SCAN THIS AM. FLUSHING DRAINS PER ORDERS Q 4HRS. FREQ URINATION PER URINAL. POOR APPETITE. DRINKING SOME OF HIS ENSURE THIS AM, HAD HALF A CONTAINER HE WAS WORKING ON. DENIES NAUSEA. REPORTS BM YESTERDAY.
[2020-02-26 15:30] VITALS: BP 128/76; PULSE 74; RESP 17; TEMP 37.4; O2SAT 99
[2020-02-26] MEDS: PHENYLEPH/MINERAL OIL/PETROLAT 57 GM OINT 1 APPLIC PR (18:41)
[2020-02-26 19:43] VITALS: BP 131/77; PULSE 80; RESP 16; TEMP 37.4; O2SAT 97
[2020-02-26] MEDS: ENSURE 1 EACH PO (20:59)
--- NOTE | 2020-02-26 23:39 | PC.NURSE ---
Evening note: Roldan oriented tonight, appears very fatigued & sad tonight, he did open up about feelings. Words of comfort & encouragement offered. VS stable tonight. IV antibiotic infusing to LAC. LFA is pink, swollen and tissue firm around my other IV-it went bad. I marked redness on forearm, wrapped arm in a warm blanket. 2 drain sites CDI, Drains are flushing well, flushed as ordered. Output out of upper drain 30 ml tonight, lower drain also with 30 ml output. When I was flushing the lower drain, scant clear saline was observed trickling out of drain insertion site. Poor appetite, PO intake encouraged, clear Ensure given at bedtime & he agreed to sip on it. Ambulating to BR and in room 3 times on my shift tonight, independent or SBA, gait steady. I encouraged him to ambulate in hallway tonight, ensuring him we could give him mask/gloves to protect him, he declined to walk but hopeful to walk in the morning. Fall precautions in place, pt calling appropriately for help.
[2020-02-27 00:18] VITALS: BP 139/76; PULSE 78; RESP 16; TEMP 37.7; O2SAT 98
[2020-02-27] MEDS: OXYCODONE IR 10 MG TABLET PO ×5 (00:32→21:05)
[2020-02-27] MEDS: ACETAMINOPHEN 325 MG TABLET 650 MG PO ×5 (00:32→23:42)
[2020-02-27] MEDS: SODIUM CHLORIDE 0.9% FLUSH 10 ML IV ×3 (00:59→21:06)
--- NOTE | 2020-02-27 02:13 | PC.NURSE ---
0030 Drains flushed with 10 ml. of NS x 4 flushes, noted small leakage in the lower drain even when flushed slowly. Will monitor.
[2020-02-27 05:58] VITALS: BP 118/67; PULSE 77; RESP 18; TEMP 37.2; O2SAT 96
--- NOTE | 2020-02-27 06:30 | PC.NURSE ---
0550 Flushed drains @ 0030 & 0550 flushes easily lower drain leaking even flushed slowly. Emptied drains lower drain emptied 45 cc serosanguineous fluids with small clots noted. Upper drain flushed with total of 40 cc NS, but only emptied 30 cc. of fluids. Will report to day RN.
[2020-02-27 06:53] LABS: Add Manual Diff / Slide Review NO; Basophils Absolute Auto 100 /uL (0-100); Basophils Percent Auto 0.6 % (0-2); Eosinophils Absolute Auto 100 /uL (0-450); Eosinophils Percent Auto 0.7 % (2-4); Hematocrit 26.8 % (41-53); Hemoglobin 8.8 g/dL (13.5-17.5); Lymphocytes Absolute Auto 1300 /uL (1100-4500); Lymphocytes Percent Auto 8.5 % (25-40); Mean Corpuscular HGB Conc 32.7 % (30-36); Mean Corpuscular Volume 88.7 fL (80-100); Monocytes Absolute Auto 1200 /uL (0-900); Monocytes Percent Auto 8.1 % (3-14); Neutrophils Absolute Auto 12200 /uL (1500-7000); Neutrophils Percent Auto 82.1 % (50-75); Red Blood Cell Count 3.02 X10^6/uL (4.5-5.9); Red Cell Distribution Width 16.8 % (11.6-14.8); White Blood Cell Count 14.8 X10^3/uL (4.5-11.0)
[2020-02-27 06:56] LABS: Platelet Count 1068 X10^3/uL (150-400)
[2020-02-27 07:00] VITALS: BP 109/66; PULSE 71; RESP 18; TEMP 37.1; O2SAT 97
[2020-02-27 07:17] LABS: Platelet Estimate Increased on smear
[2020-02-27] MEDS: CIPROFLOXACIN 400 MG/200 ML PIGGYBACK 100 MG IV (08:50)
[2020-02-27] MEDS: polyethylene glycoL 3350 17 GM POWD.PACK PO (08:51)
[2020-02-27] MEDS: MULTIVIT,CALC,MINS/IRON/FOLIC 1 TABLET 1 TAB PO (08:51)
[2020-02-27] MEDS: metroNIDAZOLE 500 MG TABLET PO ×4 (08:51→21:03)
[2020-02-27] MEDS: SIMETHICONE 80 MG TABLET PO ×4 (08:51→21:06)
[2020-02-27] MEDS: FERROUS SULFATE 325 MG TABLET PO (08:51)
[2020-02-27] MEDS: DOCUSATE 100 MG CAPSULE PO ×2 (08:51→21:04)
[2020-02-27] MEDS: GABAPENTIN 100 MG CAPSULE 200 MG PO (08:51)
[2020-02-27] MEDS: OXYCODONE ER 10 MG TAB PO ×2 (08:51→21:04)
[2020-02-27] MEDS: ONDANSETRON 4 MG/2 ML INJ IV ×3 (08:52→17:08)
[2020-02-27] MEDS: ENSURE 1 EACH PO ×2 (08:52→21:06)
--- NOTE | 2020-02-27 10:28 | PM.PN.1 ---
Subjective Subjective Date Patient Seen: 02/27/20 Time Patient Seen: 10:28 Interval history: Pt had infiltration of his IV site overnight with surrounding erythema. Now improving. Posteriorlateral drain is leaking when flushed and causes discomfort when flushed. Exam Vital Signs (past 8 hours): - 02/27/20 05:58 02/27/20 07:00 Temperature 98.9 F 98.8 F Pulse Rate 77 71 Respiratory Rate 18 18 Blood Pressure 118/67 109/66 Pulse Oximetry 96 97 Oxygen Delivery Method Room Air Oxygen Flow Rate 0 Narrative Exam Narrative: GENERAL: Alert, comfortable, appears stated age. In no acute distress. Answers questions promptly and appropriately. Vital signs noted. HENT: Normocephalic, atraumatic. Hearing intact. Oral mucosa is pink and dry. EYES: Conjunctiva pink, sclera white, no periorbital swelling. CARDIOVASCULAR: Regular rate. No pedal edema. RESPIRATORY: Non-tachypneic, breathing comfortably on room air. GASTROINTESTINAL: Abdomen soft, appropriate TTP, two right side drains in place with sanguinous output in the bags MUSCULOSKELETAL: Equal tone and mass bilaterally. SKIN: His skin is otherwise warm, dry, soft, appropriate for ethnicity. No other lesions, rashes, or wounds. NEURO: Alert and Oriented X 3. No gross sensory deficits, or cognitive issues. PSYCH: Appropriate affect and mood. Objective Imaging CT scan - abdomen: Radiologist's impression: Improvement in fluid collections Labs Result Diagrams: 02/27/20 06:29 02/26/20 07:04 Labs: Laboratory Results - last 24 hr 02/27/20 06:29 WBC 14.8 H RBC 3.02 L Hgb 8.8 L Hct 26.8 L MCV 88.7 MCH 29.0 MCHC 32.7 RDW 16.8 H Plt Count 1068 H* Neut % (Auto) 82.1 H Lymph % (Auto) 8.5 L [place] % (Auto) 8.1 Eos % (Auto) 0.7 L Baso % (Auto) 0.6 Neut # (Auto) 24100 H Lymph # (Auto) 1300 [place] # (Auto) 1200 H Eos # (Auto) 100 Baso # (Auto) 100 Platelet Estimate Increased on smear RBC Morphology Not Reportable Assessment & Plan Assessment and plan (1) Leukocytosis: Problem details: Secondary to abdominal abscess. Continual decrease. Went up today, but likely secondary to IV site infiltration. Current visit: Yes Status: Acute (2) Thrombocytosis: Problem details: Plt hovering around 1000. Will start ASA tomorrow. Current visit: Yes Status: Acute (3) Anemia: Problem details: Gradually improving daily. Now 8.8. Current visit: Yes Status: Acute (4) Status post appendectomy: Problem details: This is a 59-year-old man who is 4 weeks out from open appendectomy by Dr. West. He came in with an abscess, anemia, leukocytosis, transaminitis, elevated alk-phos, and thrombocytosis. Dr. Hunter perc drained the abscesses. They were both very bloody and contain gram positive rods. He has been kept on cipro and flagyl, with daily improvement in his WBC until today. This is suspected to be related to an IV site infiltration and associated cellulitis. The IV site is improving. Drains are not draining much, but based on yesterday's CT scan the fluid collections are getting smaller. The patient's appetite has improved, and he is having bowel movements regularly, although they are loose. His white blood cell count has improved until today which is likely due to the infiltration of his IV site. His hemoglobin is improving every day, and I think it is reasonable to start him on an aspirin tomorrow for his increased platelet count. Current visit: Yes Status: Acute (5) Intraperitoneal abscess: Problem details: Two drains were placed 1 week ago. The abscess cavities have continued to shrink, albeit slowly. The posterior drain is now causing some pain and leakage when flushed, and is suspected to be no longer in a position to provide any significant drainage. The anterior/more medial drain continues to drain and flush, but does not draw back. I spoke today at length with Dr. Armando of Radiology to discuss the potential for exchanging the drains or repositioning the posterior drain. He felt very strongly that this was not needed or appropriate. He recommended not to let anyone draw back on the drains, but only flush forward. He pointed out that drawing back on the drains will pull clotted material into the drainage catheter itself, resulting in obstruction of the side holes of the drainage catheter. He did not recommend replacing the posterior drain, but potentially removing it and leaving it out. Have made these recommendations to the patient and his nurse, and changed the orders in the computer to reflect this. Will continue to monitor the output. Current visit: Yes Status: Acute Assessment & Plan narrative: Lactose free, regular diet Adjust bowel regimen due to frequent loose stools Ambulate frequently, at least 20 minutes TID Consider adding aspirin starting tomorrow Closely follow drain output, vitals, and lab results Flush drains Q4 hours, and teach patient and his to flush PO pain med, IV for breakthrough Continue Cipro and Flagyl Dispo pending stable hgb, pain controlled on PO pain med, WBC resolved, pt able to tolerate PO diet and PO antibiotics Scheduled zofran added ACHS for nausea Time Spent With Patient Time with patient: 25 - 35 minutes Quality VTE Deep Vein Thrombosis/Pulmonary Embolism Present on Admission: No
--- NOTE | 2020-02-27 11:33 | CM.DPC ---
Addendum entered by Linda Paul R.N. 02/27/20 14:41: Livia from [facility] called for update. Let her know that nursing with home health would be needed, and patient could potentially discharge tomorrow. Will update [facility] if discharged tomorrow, and will need to fax orders, DC summary, and face to face. Addendum entered by Linda Paul R.N. 02/27/20 11:41: Spoke to Jacki at [facility] and gave her update that patient could discharge tomorrow, and how often flushes are occurring. She stated that they would be out at the home no later than 48 hours of discharge. Let her know that they would be updated tomorrow. Original Note: DCP Cont: Dr. Marvin called this manager rn case's phone and left a message inquiring upon discharge plan for patient upon him going home, and drain care. Attempted to call her back, but left her a message. Plan is for patient to go home with [facility], nursing can come in a couple of times a week to check on drain. Patient's would also need to come in for teaching, as well. Checked in with nurse, Bhavna, who confirmed that patient has been doing flushes, but still continues to need reassurance. Will also call [facility] and give them an update of discharge. Patient could potentially be discharged tomorrow. P: DCP to continue to follow. Will also update [facility] health. Linda Paul RN/Case Management.
[2020-02-27 11:45] VITALS: BP 129/74; PULSE 75; RESP 18; TEMP 37.4; O2SAT 97
--- NOTE | 2020-02-27 13:07 | PC.NURSE ---
Addendum entered by Bhavna Darling R.N. 02/27/20 14:14: PATIENT ATE APPROX 75% OF LUNCH WHILE SITTING UP IN RECLINER. HE THEN WALKED A THIRD TIME IN THE HALLS AND IS NOW BACK TO BED. Original Note: SHIFT SUMMARY: PATIENT HAS AMBULATED IN HALLS TWICE THIS SHIFT. PATIENT'S PROXIMAL/MEDIAL RIGHT ABD DRAIN WAS FLUSHED W/ 10CC NS THIS AM, ATTEMPTED TO DRAW BACK VERY GENTLY, DOES NOT DRAW. FLUSHED THE BAG WITH 10CC/NS. DID NOT FLUSH THE DISTAL/MORE LATERAL DRAIN TO RIGHT ABD, PATIENT REPORTS IT LEAKS WITH ANY FLUSHING. DISCUSSED SAME WITH SURGEON DURING ROUNDS. AFTER SHE SPOKE WITH INTERVENTIONAL RADIOLOGY, SHE INSTRUCTS TO CONTINUE TO FLUSH 10CC NS INTO BOTH DRAINS TOWARDS PATIENT, BUT DO NOT ATTEMPT TO DRAW BACK. CONTINUE TO FLUSH LIKEWISE TO DRAINAGE BAG TO CLEAR TUBING WELL. THIS AFTERNOON BOTH DRAINS FLUSHED, THE DISTAL/LATERAL DRAIN DID INDEED COMPLETELY LEAK FROM SEROUS/SANG DRAINAGE FROM INSERTION SITE WITH VERY SLOW FLUSHING OF 10CC NS. THE OTHER DRAIN DID NOT LEAK AND BOTH DRAINS FLUSH WITHOUT ANY RESISTANCE. CALORIE COUNT STARTED. PATIENT DIDN'T EAT ANY BREAKFAST. ENCOURAGED TO TRY TO EAT LUNCH. STARTING DAILY WT'S ON PATIENT. CHANGED TO COREY BED AND ZERO'D BED. WILL WEIGH PATIENT.
--- NOTE | 2020-02-27 13:36 | DIET.PN ---
Dietary Progress Note Assessment: Calorie count started at lunch meal (7.4.20) on Mr. Cortés per Dr. Woodard's request. Patient did not eat any breakfast per nurse note. Pt reports he has not been able to eat many solids for the last month. He has been able tolerate mashed potatoes and gravy, jello, and some ONS. He was tolerating Javi with smoothies until recently. States is began to be to acidic. He agrees to try again w/ banana. Encouraged patient to pre-order lunch/dinner from the menu as to ensure he is able to tolerate. Patient agreeable to adding benepro to mashed potatoes for increased protein. HT: 172.7cm WT: 76.2kg BMI: 25.5 Labs: hgb: 8.8 L hct: 26.8 L Plt: 1068 H Nutrition Diagnosis: poor wound healing r/t poor appetite causing negative nitrogen balance aeb 3w s/p open appendectomy for perforated appendicitis c current abd abcess, severe lactose intolerance, POs <50% EERs for past 7d. Interventions: 1. Begin calories count 05/25/2020 (up to 72 hrs). 2. RN will assess daily weights. 3. Pt agreed to add benepro to mashed potatoes, sauces, soups. Pt understands importance of nutrition support. Diet Order: General (lactose free) EER: 2100 kcals; 90g (1.2 g/kg wound healing) Monitoring/Evaluations: PO's, ONS tolerance, nausea, assess for malnutrition r/t inadequate PO's w/ GI symptoms
[2020-02-27] MEDS: GABAPENTIN 300 MG CAPSULE PO ×2 (13:58→21:03)
[2020-02-27 17:03] VITALS: BP 124/70; PULSE 85; RESP 20; TEMP 36.9; O2SAT 99
[2020-02-27 20:56] VITALS: BP 105/60; PULSE 75; RESP 16; TEMP 36.9; O2SAT 99
[2020-02-27] MEDS: CIPROFLOXACIN 400 MG/200 ML PIGGYBACK 200 MG IV (21:11)
[2020-02-28] VITALS: BP 126/68; PULSE 83; RESP 16; TEMP 37.4; O2SAT 99
[2020-02-28] MEDS: OXYCODONE IR 10 MG TABLET PO ×6 (01:05→22:33)
[2020-02-28 06:04] VITALS: BP 112/67; PULSE 81; RESP 16; TEMP 37.3; O2SAT 97
[2020-02-28] MEDS: ONDANSETRON 4 MG/2 ML INJ IV ×3 (06:30→16:34)
[2020-02-28] MEDS: ACETAMINOPHEN 325 MG TABLET 650 MG PO ×4 (06:30→23:31)
[2020-02-28 06:39] LABS: Add Manual Diff / Slide Review NO; Basophils Absolute Auto 200 /uL (0-100); Basophils Percent Auto 1.2 % (0-2); Eosinophils Absolute Auto 100 /uL (0-450); Eosinophils Percent Auto 0.7 % (2-4); Hematocrit 25.5 % (41-53); Hemoglobin 8.5 g/dL (13.5-17.5); Lymphocytes Absolute Auto 1300 /uL (1100-4500); Lymphocytes Percent Auto 9.6 % (25-40); Mean Corpuscular HGB Conc 33.1 % (30-36); Mean Corpuscular Hemoglobin 29.3 PG (26-34); Mean Corpuscular Volume 88.4 fL (80-100); Monocytes Absolute Auto 1200 /uL (0-900); Monocytes Percent Auto 8.3 % (3-14); Neutrophils Absolute Auto 11200 /uL (1500-7000); Neutrophils Percent Auto 80.2 % (50-75); Red Blood Cell Count 2.89 X10^6/uL (4.5-5.9)
[2020-02-28 06:46] LABS: Platelet Count 982 X10^3/uL (150-400)
[2020-02-28 06:59] LABS: Anisocytosis 1+; Platelet Estimate Increased on smear
[2020-02-28] MEDS: OXYCODONE ER 10 MG TAB PO ×2 (09:57→20:56)
[2020-02-28] MEDS: DOCUSATE 100 MG CAPSULE PO ×2 (09:59→20:57)
[2020-02-28] MEDS: polyethylene glycoL 3350 17 GM POWD.PACK PO (09:59)
[2020-02-28 10:00] VITALS: BP 121/72; PULSE 72; RESP 18; TEMP 37.1; O2SAT 96
[2020-02-28] MEDS: GABAPENTIN 300 MG CAPSULE PO ×3 (10:00→20:57)
[2020-02-28] MEDS: FERROUS SULFATE 325 MG TABLET PO (10:00)
[2020-02-28] MEDS: LIDOCAINE PATCH 1 EACH ADH..PATCH TOP (10:01)
[2020-02-28] MEDS: metroNIDAZOLE 500 MG TABLET PO ×3 (10:02→20:57)
[2020-02-28] MEDS: SIMETHICONE 80 MG TABLET PO ×4 (10:02→20:57)
[2020-02-28] MEDS: MULTIVIT,CALC,MINS/IRON/FOLIC 1 TABLET 1 TAB PO (10:05)
[2020-02-28] MEDS: SODIUM CHLORIDE 0.9% FLUSH 10 ML IV ×3 (10:24→20:57)
[2020-02-28] MEDS: ENSURE 1 EACH PO ×2 (10:26→20:56)
[2020-02-28] MEDS: CIPROFLOXACIN 400 MG/200 ML PIGGYBACK 200 MG IV (10:36)
--- NOTE | 2020-02-28 11:08 | PC.NURSE ---
Day Shift- Right lower drain removed by Dr. Woodard around 1000. Small gauze and paper tape applied over site by Dr. Woodard. No leaking noted after removal. Right upper drain remains and flushed per orders. Explained to pt flushing protocol of 10ml NS flush from drain port to him (pt) then flush 10ml NS from port site to bag to clear tubing. Also explained per Dr. Woodard that the flushing to pt will be an antibiotic solution that may start today.
[2020-02-28 11:28] VITALS: BP 122/67; PULSE 68; RESP 17; TEMP 37.3; O2SAT 100
--- NOTE | 2020-02-28 11:40 | CM.DPC ---
DCP Cont: Per Surgeon, removed one of pt's drains today and will begin a flush of the drain with abx and working with pharmacy to determine the abx and dosing. Per RN, will continue to do some teaching with the pt and ongoing plans of doing bedside teaching with pt's spouse closer to d/c which potentially could be Wednesday or Wed pending pt's progress with his hemoglobin and tolerating p.o. Pt has been ambulating the halls. SW updated [facility] and faxed MD orders, F2F, and updated clinicals to review. Plan: SW to follow for faxing [facility] the d/c summary when available and following for any further needs towards plan of d/c home with spouse and new [facility]. FARTUN Wolfe
--- NOTE | 2020-02-28 12:01 | P.PN_ITS ---
Subjective Subjective Date Patient Seen: 02/28/20 Time Patient Seen: 12:01 Interval history: No acute events overnight. Pain relatively well controlled on PO pain meds, although he is needing the short acting narcotic on the 4 hour jeronimo. Flushing the posterior drain causes pain and flush just leaks around the site. Exam Vital Signs (past 8 hours): - 02/28/20 06:04 02/28/20 10:00 02/28/20 11:28 Temperature 99.2 F 98.7 F 99.2 F Pulse Rate 81 72 68 Respiratory Rate 16 18 17 Blood Pressure 112/67 121/72 122/67 Pulse Oximetry 97 96 100 Oxygen Delivery Method Room Air Oxygen Flow Rate 0 Narrative Exam Narrative: GENERAL: alert, comfortable, in no distress HENT: Normocephalic, atraumatic. Hearing intact. Oral mucosa is pink and moist EYES: Conjunctiva pink, sclera white, no periorbital swelling. CARDIOVASCULAR: Regular rate. No pedal edema. RESPIRATORY: Non-tachypneic, breathing comfortably on room air. GASTROINTESTINAL: Abdomen soft, appropriate TTP, two right side drains in place with sanguinous output in the bags; posteriorlateral drain removed during exam MUSCULOSKELETAL: Equal tone and mass bilaterally. SKIN: His skin is otherwise warm, dry, soft, appropriate for ethnicity. No other lesions, rashes, or wounds. NEURO: Alert and Oriented X 3. No gross sensory deficits, or cognitive issues. PSYCH: Appropriate affect and mood. Objective Labs Result Diagrams: 02/28/20 06:24 02/26/20 07:04 Labs: Laboratory Results - last 24 hr 02/28/20 06:24 WBC 14.0 H RBC 2.89 L Hgb 8.5 L Hct 25.5 L MCV 88.4 MCH 29.3 MCHC 33.1 RDW 17.0 H Plt Count 982 H* Neut % (Auto) 80.2 H Lymph % (Auto) 9.6 L [place] % (Auto) 8.3 Eos % (Auto) 0.7 L Baso % (Auto) 1.2 Neut # (Auto) 71091 H Lymph # (Auto) 1300 [place] # (Auto) 1200 H Eos # (Auto) 100 Baso # (Auto) 200 H Platelet Estimate Increased on smear RBC Morphology See below Anisocytosis 1+ H Assessment & Plan Assessment and plan (1) Leukocytosis: Problem details: Secondary to abdominal abscess. Improved from yesterday but persistently elevate d. Current visit: Yes Status: Acute (2) Thrombocytosis: Problem details: Plt hovering around 1000. Will start ASA 325mg. Current visit: Yes Status: Acute (3) Anemia: Problem details: Stable 8.5 Current visit: Yes Status: Acute (4) Status post appendectomy: Problem details: This is a 59-year-old man who is 4 weeks out from open appendectomy by Dr. West. He came in with an abscess, anemia, leukocytosis, transaminitis, elevated alk-phos, and thrombocytosis. Dr. Hunter perc drained the abscesses. He has been kept on IV abx. Drain output has become minimal. WBC is stagnant at 14. Drain culture grew B Frag, but no sensitivities were done. We will send another culture from the drain fluid today, and request sensitivities. Stopping abx today because I don't think they are helping. Will start ASA 325mg for high platelet level. Will restart Atorvastatin. Both have been held until now because of concern for anemia. I would like to flush the abscess cavity with antibiotic to cover B frag. I requested the Pharmacist's help in doing this. They will work on a clinda irrigation solution. For now I will hold any more IV antibiotics. I removed the posteriorlateral drain because it is no longer functioning. Current visit: Yes Status: Acute (5) Intraperitoneal abscess: Problem details: Two drains were placed 1 week ago. The abscess cavities have continued to shrink, albeit slowly. The posterior drain is now causing some pain and leakage when flushed, and is suspected to be no longer in a position to provide any significant drainage. The anterior/more medial drain continues to drain and flush, but does not draw back. I spoke today at length with Dr. Armando of Radiology to discuss the potential for exchanging the drains or repositioning the posterior drain. He felt very strongly that this was not needed or ap propriate. He recommended not to let anyone draw back on the drains, but only flush forward. He pointed out that drawing back on the drains will pull clotted material into the drainage catheter itself, resulting in obstruction of the side holes of the drainage catheter. He did not recommend replacing the posterior drain, but potentially removing it and leaving it out. Have made these recommendations to the patient and his nurse, and changed the orders in the computer to reflect this. Will continue to monitor the output. Current visit: Yes Status: Acute Assessment & Plan narrative: Lactose free, regular diet Ambulate frequently, at least 20 minutes TID ASA 325mg Clinda irrigation once pharmacy has a solution available resend drain fluid prior to antibiotic flush for culture and sensitivity Closely follow drain output, vitals, and lab results Flush drains Q4 hours, and teach patient and his to flush PO pain med, IV for breakthrough DC Cipro and Flagyl Consider restarting abx once culture result returns Continue daily weight and calorie count Dispo pending stable hgb, pain controlled on PO pain med, WBC resolved, pt able to tolerate PO diet and PO antibiotics Continue zofran ACHS for nausea Time Spent With Patient Time with patient: 25 - 35 minutes Quality VTE Deep Vein Thrombosis/Pulmonary Embolism Present on Admission: No
--- NOTE | 2020-02-28 14:28 | DIET.PN ---
Dietary Progress Note Assessment: Mr. Mcgregor is a 59-year-old man who is 4 weeks out from open appendectomy. Calorie count and daily weight's started on 02/27/[address] Woodard request. HT: 172.7cm WT: 66.8kg UBW: 76.2kg (02/24/2020) BMI: 22.4 Labs: Hgb: 8.5 Hct: 25.5 Plt: 982 Nutrition Diagnosis: Acute illness severe PCM r/t GI complications, S/P open appendectomy aeb energy intake <50% EER > 5 days, GI symptoms (nausea, anorexia) > 1 week, weight loss 12% x 1 wk, pt report can not tolerate solid food. Interventions: 1. Started calorie count on 02/27/2020. At this time this RD has one meal ticket. Discussed with RN to include amounts of all foods eaten. Will continue for the next 48 hrs. Meal 1 (lunch 02/26): 380 calories, 15.5g Pro 3/4 egg salad sandwich, 1/2 c lentil soup, 1/2 c sorbet 2. Resume providing high pro smoothies w/ added benepro to all soft foods. Pt agreeable. Diet Order: General, lactose free, soft foods EER: 2100 kcal; 90 g pro Monitoring/Evaluations: wt, PO's, calorie count
--- NOTE | 2020-02-28 15:11 | CM.DPNOTE ---
DCP Cont Received call from Dr Woodard this afternoon; she has consulted w/ ID and is hopeful pt can DC back to [facility] w/IV Ertapenem 1gm Q24 for 4 wks. Contacted [facility] and Shai explained they would need a following physician. Shai was optimistic that pt had good home infusion coverage w/ [employer] insurance Dr Woodard has agreed to follow patient, pt has no current PCP. Dr Woodard hopes to DC patient home w/spouse and IV abx Wednesday or Wednesday this week. Dr Woodard holding on PICC line placement until more information known re: home infusion cost and feasibility LM for Shai at [facility] at 1525 and suggested further communication 4.. d/t low census staffing today, PICC line pending DC planning team can send referral and find out insurance coverage/patient agreement. Will update Dr Woodard 4.08.11 FARTUN De Los Santos
[2020-02-28 15:42] VITALS: BP 104/52; PULSE 76; RESP 20; TEMP 37.1; O2SAT 98
[2020-02-28] MEDS: LACTOBACILLUS ACIDOPHILUS TABLET 1 EACH PO (16:55)
[2020-02-28] MEDS: ATORVASTATIN 20 MG TABLET 40 MG PO (20:56)
[2020-02-28] MEDS: CLINDAMYCIN IRR (20:57)
[2020-02-28] MEDS: SODIUM CHLORIDE 0.9% IRR (20:57)
[2020-02-28] MEDS: CIPROFLOXACIN 250 MG TABLET 750 MG PO (20:58)
[2020-02-28 21:00] VITALS: BP 127/70; PULSE 80; RESP 18; TEMP 37.2; O2SAT 96
[2020-02-28] MEDS: HYDROMORPHONE 0.5 MG INJ IV (23:03)
[2020-02-29 00:17] VITALS: BP 119/64; PULSE 87; RESP 16; TEMP 37.3; O2SAT 100
[2020-02-29] MEDS: OXYCODONE IR 10 MG TABLET PO ×3 (02:14→10:27)
[2020-02-29 03:15] VITALS: BP 108/64; PULSE 83; RESP 16; TEMP 37; O2SAT 96
--- NOTE | 2020-02-29 05:47 | PC.NURSE ---
Right drain intact. Slight leakage at site when flushing drain per orders. Pt pain controlled with oxycodone PRN. Pt SBA with FWW, Pt took walk around unit this am. Pt has no complaints at this time.
[2020-02-29] MEDS: HYDROMORPHONE 0.5 MG INJ IV (06:04)
[2020-02-29] MEDS: ACETAMINOPHEN 325 MG TABLET 650 MG PO (06:06)
[2020-02-29] MEDS: CIPROFLOXACIN 250 MG TABLET 750 MG PO (06:07)
[2020-02-29] MEDS: ONDANSETRON 4 MG/2 ML INJ IV (06:49)
[2020-02-29 06:54] LABS: Add Manual Diff / Slide Review NO; Basophils Absolute Auto 0 /uL (0-100); Basophils Percent Auto 0.3 % (0-2); Eosinophils Absolute Auto 100 /uL (0-450); Eosinophils Percent Auto 0.5 % (2-4); Hematocrit 26.8 % (41-53); Hemoglobin 8.8 g/dL (13.5-17.5); Lymphocytes Absolute Auto 1200 /uL (1100-4500); Lymphocytes Percent Auto 7.3 % (25-40); Mean Corpuscular HGB Conc 32.7 % (30-36); Mean Corpuscular Hemoglobin 28.8 PG (26-34); Mean Corpuscular Volume 88.1 fL (80-100); Monocytes Absolute Auto 1400 /uL (0-900); Monocytes Percent Auto 8.1 % (3-14); Neutrophils Absolute Auto 14300 /uL (1500-7000); Neutrophils Percent Auto 83.8 % (50-75); Red Blood Cell Count 3.04 X10^6/uL (4.5-5.9); Red Cell Distribution Width 16.9 % (11.6-14.8); White Blood Cell Count 17.1 X10^3/uL (4.5-11.0)
[2020-02-29 06:58] LABS: Platelet Count 947 X10^3/uL (150-400)
--- NOTE | 2020-02-29 07:00 | PC.NURSE ---
Notified Dr Matamoros of critical lab value. Platelets 947, decreased from 987 yesterday. Critical value read back. No orders
[2020-02-29 07:37] LABS: Platelet Estimate Increased on smear
[2020-02-29 07:38] LABS: Polychromasia 1+
[2020-02-29 08:00] VITALS: BP 119/70; PULSE 95; RESP 18; TEMP 38.4; O2SAT 95
--- NOTE | 2020-02-29 08:21 | PC.NURSE ---
Addendum entered by Swetha Davis R.N. 02/29/20 12:44: Per LAXMI Stubbs Coordinator, pt to be transferred to [facility] medical unit, room 1028. Report called to LAXMI Barraza at [facility], message left at 1213. BLS Transporters present on unit at 1220, given report on pt. LAXMI Barraza called back at 1225, report given, when asked about if any contact with any person with COVID-19. Admission assessment stated No. Reported to RN that our Chief Engineer Production Jeanne stated pt was receiving 'Soy milk Javi smoothies with added banana' BID. Also pt was taking ensure drinks and receiving Zofran scheduled po prior to meals increased his oral intake. No further questions from RN. Pt states has all belongings. Pt left unit at 1243 via stretcher with BLS. Addendum entered by Swetha Davis R.N. 02/29/20 10:14: Update given to Dr. Woodard at 0950, when flushing RUQ abd drain with scheduled Clindamycin, some leaking noted at insertion site. Pt denied any pain with flushing. Original Note: Day Shift- Dr. Woodard called at 0815, update given regarding antibiotics changed to IV Ertapenem. HUMA abd drain to be flushed with ordered Clindamycin solution BID, see MAR and flushed 6 hours after 0900/2100 dose with NS. Therefore drain will be flushed a total of 4 times in a 24hr period. Also made made aware that Temperature at 0755 was 101.2F Temporal and 100.8 F Orally. No new orders at this time, given scheduled Ertapenem.
[2020-02-29] MEDS: ERTAPENEM 1 GM in SODIUM CHLORIDE 0.9% 100 ML 200 ML IV (08:43)
[2020-02-29] MEDS: SODIUM CHLORIDE 0.9% FLUSH 10 ML IV ×2 (08:43→10:27)
[2020-02-29] MEDS: polyethylene glycoL 3350 17 GM POWD.PACK PO (08:45)
--- NOTE | 2020-02-29 08:45 | CM.DPC ---
Addendum entered by Veronique Frye LPN 02/29/20 13:13: Pt has just been picked up by EMR for transfer to [facility] to care of Surgeon: Dr. Estela Hall. Shai/[facility] is updated. TALON Davis will fax the d/c summary to them. Addendum entered by Veronique Frye LPN 02/29/20 11:42: Just spoke to Dr. Woodard who confirmed the plan for transfer. Agreed to hold off on cancellation of [facility] until pt was actually leaving. Addendum entered by Veronique Frye LPN 02/29/20 11:15: LAXMI Posada reports that Dr. Woodard came in to see pt while Cm dept was in Team Rounds. She is working on a transfer now to [facility] so that pt will have access to higher level of specialty care. Dr. Woodard is working with RN Samuel Stubbs to coordinate the process. Will update [facility] when it is clear that pt will leave today. Addendum entered by Veronique Frye LPN 02/29/20 10:39: Called [facility] pharmacist to check in on the status of referral: she stated she will have the business office call as soon as the specifics are available. She is aware that Dr. Woodard is waiting for this update. Original Note: DCP: continued: case again received and EMR for last 4 days reviewed including on ongoing DCPlanning notes. Noted that the one drain did get removed yesterday by Dr. Woodard, that an antibiotic flush of drain in planned in the hospital setting and that Dr. Woodard did consult yesterday with the Infectious Disease specialist with with recommendation made for IV Ertapenem every 24 hours for 4 weeks. Followup: spoke by phone this morning with Dr. Woodard. She confirms need for the IV antibiotic with hope of averting another surgical procedure. She confirmed pt was now started on this medication. She was waiting to place a PICC until it was clear that pt could go home on this drug under care of an [facility]. She notes pt's WBC continues to rise (now at 17.1) She further advised that this plan NOT be discussed yet with pt. She will be in later today to talk with pt once she is provided details of the Infusion plan by CM team. Agreed to keep her updated on her personal line as she is working from home for most of today. Have spoken with Shai: [facility] and [facility] Susan is faxing face sheet and clinical. Will await insurance coverage determination. Dr. Woodard would be the physician following this case in collaboration with [facility] once pt does go home. Alpha remains poised to go out at d/c. Will also keep them updated as DC POC unfolds. Will be following this case closely and update the RN coordinator in Team Rounds.
[2020-02-29] MEDS: LACTOBACILLUS ACIDOPHILUS TABLET 1 EACH PO (08:52)
[2020-02-29] MEDS: ASPIRIN 325 MG TABLET PO (09:09)
[2020-02-29] MEDS: DOCUSATE 100 MG CAPSULE PO (09:09)
[2020-02-29] MEDS: CLINDAMYCIN IRR (09:09)
[2020-02-29] MEDS: SODIUM CHLORIDE 0.9% IRR (09:09)
[2020-02-29] MEDS: MULTIVIT,CALC,MINS/IRON/FOLIC 1 TABLET 1 TAB PO (09:10)
[2020-02-29] MEDS: GABAPENTIN 300 MG CAPSULE PO (09:10)
[2020-02-29] MEDS: OXYCODONE ER 10 MG TAB PO (09:10)
[2020-02-29] MEDS: SIMETHICONE 80 MG TABLET PO (09:10)
[2020-02-29] MEDS: FERROUS SULFATE 325 MG TABLET PO (09:10)
--- NOTE | 2020-02-29 10:30 | DIET.PN ---
Dietary Progress Note Pts 3d calorie count found pt is reaching 80% pro goals but only 60% kcal goals. Of note, pt ordered 1/2 portion of meatloaf c mashed potatoes and steamed vegetables last night for dinner of which he ate and tolerated half. Additionally ate 1/2 egg salad sandwich and fruit cup in the middle of the night. Woke this am and had semi-normal BM per pt. This is best POs and best tolerated since admit. Pt best tolerates Ensure Clear, ONS javi, banana, soymilk smoothies, lactose-free vanilla yogurt, scrambled eggs, egg salad sandwich on white, and fruit cups. Pt reports anti-emetic and on schedule px control give him best chance for appetite. 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 HT: 172.7cm WT: 66.8 UBW: 76kg BMI: 22.4 Labs: pltlt count high 947, WBC trending up 17.1, hgb 8.8 L, MNA: 12 Preston: 20 Nutrition Diagnosis: Acute illness severe PCM r/t GI complications, S/P open appendectomy aeb energy intake <50% EER > 5 days, GI symptoms (nausea, anorexia) > 1 week, weight loss 12% x 1 wk, pt report can not tolerate solid food. Interventions: 1. Continue providing Javi soymilk smoothies bid supplying 50% of PRO, continue working c pt on meeting PRO an kcal goals. 2. This RD will prepare education sheet with nutrition goals for home care for first 2w post-dc as pt and his spouse cook from scratch and in light of mandatory stay home orders per [place] state. Diet Order: General- lactose free c javi soymilk smoothies bid EER: 2100kcal, 90g PRO (1.2g/kg) Monitoring/Evaluations: following daily
--- NOTE | 2020-02-29 10:39 | P.PN_ITS ---
Exam Vital Signs (past 8 hours): - 02/29/20 03:15 02/29/20 08:00 Temperature 98.6 F 101.2 F H Pulse Rate 83 95 H Respiratory Rate 16 18 Blood Pressure 108/64 119/70 Pulse Oximetry 96 95 Oxygen Delivery Method Room Air Oxygen Flow Rate 0 Objective Labs Result Diagrams: 02/29/20 06:45 02/26/20 07:04 Labs: Laboratory Results - last 24 hr 02/29/20 06:45 WBC 17.1 H RBC 3.04 L Hgb 8.8 L Hct 26.8 L MCV 88.1 MCH 28.8 MCHC 32.7 RDW 16.9 H Plt Count 947 H* Neut % (Auto) 83.8 H Lymph % (Auto) 7.3 L Henderson % (Auto) 8.1 Eos % (Auto) 0.5 L Baso % (Auto) 0.3 Neut # (Auto) 89964 H Lymph # (Auto) 1200 Henderson # (Auto) 1400 H Eos # (Auto) 100 Baso # (Auto) 0 Platelet Estimate Increased on smear RBC Morphology See below Polychromasia 1+ H Quality VTE Deep Vein Thrombosis/Pulmonary Embolism Present on Admission: No
--- NOTE | 2020-02-29 11:29 | PM.DS.1 ---
History of Present Illness History of Present Illness Chief complaint: had appendectomy,persistant pain sent by doc Narrative: This is a 59-year-old man who had an open appendectomy January 28 for perforated appendicitis. He has gone through phases of feeling better and then worse again over the last several weeks. He came into the ER on 02/19, because he was having worsening abdominal pain, malaise, fatigue, and weakness. He has had some low-grade fevers at home, and is afebrile in the ER. In the ER he had labs drawn and a CT scan. The labs show a white count of 16, hemoglobin of 7.3, platelets of 1,162,000, and the CT scan shows a large abdominal abscess, as well as a fluid collection in the right flank just below the liver. Other than the recent appendicitis, he denies any other significant medical or surgical history other than high cholesterol, for which he takes atorvastatin. ROS: The patient denies nausea, vomiting, constipation, obstipation, hematochezia, melena, but reports a poor appetite. He reports diarrhea, but says he is still taking stool softeners and laxatives per his discharge instructions after surgery. He denies any chest pain, shortness of breath, cough, generalized body aches. He denies any changes in vision or mentation. He denies any lower extremity swelling, or muscle cramps. Thirteen system review is otherwise negative other than as mentioned below and in HPI. PE: GENERAL: Alert, uncomfortable appearing, appears stated age. In no acute distress. Answers questions promptly and appropriately. Vital signs noted. HENT: Normocephalic, atraumatic. Hearing intact. Oral mucosa is pink and dry. EYES: Conjunctiva pink, sclera white, no periorbital swelling. CARDIOVASCULAR: Regular rate. No pedal edema. RESPIRATORY: Non-tachypneic, breathing comfortably on room air. GASTROINTESTINAL: Abdomen soft, mildly distended, firm mass in the right mid abdomen, consistent with CT scan findings. Healing lower midline incisional scar with no erythema. GENITALURINARY: No flank tenderness. MUSCULOSKELETAL: Equal tone and mass bilaterally. SKIN: The patient appears somewhat pale. His skin is otherwise warm, dry, soft, appropriate for ethnicity. No other lesions, rashes, or wounds. NEURO: Alert and Oriented X 3. No gross sensory deficits, or cognitive issues. PSYCH: Appropriate affect and mood. Discharge Providers Provider Date of admission: 02/20/20 13:19 Discharge Date: 02/29/20 Consults: 02/20/20 16:23 Consult to Discharge Planning Routine Comment: 02/23/20 09:24 Consult to Dietitian, Adult Routine Comment: poor appetite, needs lactose free supplements Reason For Exam: optimize nutrition 02/23/20 12:41 Consult to Home Health Routine Comment: patient will need saline for flushing drains Reason For Exam: drain management, flushing every 4 hours 02/27/20 11:08 Consult to Dietitian, Adult Routine Comment: Reason For Exam: please recheck status and consider calorie count Discharge provider: Frances Woodard MD Summary Hospital Course Discharge Diagnosis: Abdominal infected hematoma, incompletely drained Hospital Course: The patient was admitted to the surgical service and radiology was consulted for perc drainage of two abdominal fluid collections. Perc drains were placed, with javier blood coming from both drains. The drain fluid grew B fragilis. He was put on zosyn and flagyl initially, and then put on cipro/flagyl in anticipation of eventual home treatment. The patient's WBC gradually came down to 12.8 on 02/25, and his hgb stabilized. He continued to put out small amounts of bloody fluid from the anterior drain. The posterior drain stopped putting out any fluid and fluid drained back when the drain was flushed. Repeat scan showed both collections were smaller but far from resolved, and significant solid material appeared to be present in the anterior, larger collection, which is suspected to be blood clot. It appeared that the posterior collection had partially collapsed around the drain, consistent with what we were seeing at the bedside. Radiology was re-consulted to upsize the drains and to consider TPA to break up the clotted blood. The radiologist did not feel comfortable with this at that time. I removed the posterior drain on 02/27, since it was no longer working and caused the patient pain. On 02/26, 02/27 and 02/28 his WBC increased, and is now 17. On 02/27 I contacted ID at [facility] and spoke to Dr. Lin. She recommended IV Ertapenem and upsize of drains. I also had pharmacy add clindamycin to the drain flush. Ertapenem was started on 02/28, and I contacted [facility] about transferring the patient for IR consult to consider upsizing the drain, and for formal ID consult. We have held off on surgical intervention because he is four weeks out from a significant inflammatory insult and open appendectomy. Surgical intervention at this time would be expected to be potentially quite morbid. Status at Discharge Cognitive/behavioral status at discharge: oriented Functional status at discharge: independent ambulation Overall status at discharge: other (increasing WBC, in need of adequate drainage, in need of transfer for ID and IR evlauation and treatment) Time Spent with Patient Time spent: Greater than 30 minutes Exam Vital Signs (past 8 hours): - 02/29/20 08:00 Temperature 101.2 F H Pulse Rate 95 H Respiratory Rate 18 Blood Pressure 119/70 Pulse Oximetry 95 Oxygen Delivery Method Room Air Oxygen Flow Rate 0 Narrative Exam Narrative: GENERAL: alert, comfortable, in no distress HENT: Normocephalic, atraumatic. Hearing intact. Oral mucosa is pink and moist EYES: Conjunctiva pink, sclera white, no periorbital swelling. CARDIOVASCULAR: Regular rate. No pedal edema. RESPIRATORY: Non-tachypneic, breathing comfortably on room air. GASTROINTESTINAL: Abdomen soft, appropriate TTP, two right side drains in place with sanguinous output in the bags; posteriorlateral drain removed during exam MUSCULOSKELETAL: Equal tone and mass bilaterally. SKIN: His skin is otherwise warm, dry, soft, appropriate for ethnicity. No other lesions, rashes, or wounds. NEURO: Alert and Oriented X 3. No gross sensory deficits, or cognitive issues. PSYCH: Appropriate affect and mood. Objective Imaging CT scan - abdomen: Radiologist's impression: [address] [address] [address] Scan Report Signed Patient: Roldan Cortés TMR#: [id number] : 2Acct:[id number] Age/Sex: 59 / MDate of Service: 02/26/20 Loc: UE925-0 Accession Number: [id number] Procedure: CT abdomen pelvis wo con Ordering Provider: Jassi Saavedra MD PROCEDURE: CT ABDOMEN PELVIS WO CON INDICATIONS: f/u abscess drainage. Prior reported perforated appendicitis. TECHNIQUE: After the administration of oral contrast, 5 mm thick sections acquired from the diaphragms to the symphysis. 5 mm coronal and sagittal reformats were performed. For radiation dose reduction, the following was used: automated exposure control, adjustment of mA and/or kV according to patient size. COMPARISON: [facility], CT, CT ABDOMEN PELVIS W CON, 02/22/2020, 8:28. FINDINGS: Image quality: Limited by absence of intravenous contrast. ABDOMEN: Lung bases: Lung bases are clear. Heart size is normal. Solid organs: Liver is normal in size. Gallbladder appears normal. Pancreas is normal in size. Spleen is normal in size. No adrenal nodules. Both kidneys are normal in size, without hydronephrosis or nephrolithiasis. Peritoneum and bowel: Bowel loops demonstrate normal wall thickness and caliber. No free fluid or air. 2 dominant abscess cavities are again seen containing percutaneous drains, further having mildly diminished in size. The more superior and smaller abscess had measured 4.9 x 3.8 cm 02/22/20 and now measures 4.4 x 3.7 cm in the same areas. The larger more inferior abscess had measured 7.0 x 8.3 cm and now measures 6.9 x 7.9 cm. Internal gas bubbles are present at multiple levels, indicating thick material or multiple internal septations. No new abscess has developed. Nodes and vessels: No retroperitoneal or mesenteric adenopathy by size criteria. Aorta and inferior vena cava are normal in size. Miscellaneous: No ventral hernias. PELVIS: Genitourinary: Bladder wall thickness is normal. Miscellaneous: No inguinal hernias or adenopathy. Peritoneal inflammation is again seen within the right lower quadrant but no new abscess has formed. Bones: No suspicious bony lesions. No vertebral body compression fractures. IMPRESSION: Small interval reduction in size of each of the 2 dominant abscess cavities seen within the upper and lower abdomen respectively. No new abscess has developed. Quality of visualization is somewhat limited by absence of intravenous contrast. Peritoneal inflammation remains in the right lower quadrant area of reported prior perforated appendicitis. Dictated by: Jaquan Armando M.D. on 02/26/2020 at 10:00 Labs Result Diagrams: 02/29/20 06:45 02/26/20 07:04 Labs: Laboratory Results - last 24 hr 02/29/20 06:45 WBC 17.1 H RBC 3.04 L Hgb 8.8 L Hct 26.8 L MCV 88.1 MCH 28.8 MCHC 32.7 RDW 16.9 H Plt Count 947 H* Neut % (Auto) 83.8 H Lymph % (Auto) 7.3 L [place] % (Auto) 8.1 Eos % (Auto) 0.5 L Baso % (Auto) 0.3 Neut # (Auto) 13765 H Lymph # (Auto) 1200 [place] # (Auto) 1400 H Eos # (Auto) 100 Baso # (Auto) 0 Platelet Estimate Increased on smear RBC Morphology See below Polychromasia 1+ H Discharge Plan Discharge Plan Patient Disposition: [facility] Other facility: [facility] Under care of provider: Estela Hall MD Discharge comment: Pt being transferred for services not available at this hospital. Diet/Activity/Treatments Diet: Diet as Tolerated Visit Report/Discharge Packet Instructions: Ertapenem Injection Visit Report Forms: Patient Portal/API, Stroke Signs & Symptoms Quality VTE Deep Vein Thrombosis/Pulmonary Embolism Present on Admission: No
== END 2020-02-29 12:43 | disposition short-term general hospital (02) | DRG 862 ==
LOC: ED 13:15 → AC 13:21
PROVIDERS: Specialist; Surgery; Admitting Provider Surgery; Emergency Provider Emergency Medicine; Referring Provider Emergency Medicine; Visit Provider Surgery
DX: T81.43XA Infection following a procedure, organ and space surgical site, initial encounter (principal); K65.1 Peritoneal abscess; E43 Unspecified severe protein-calorie malnutrition; D62 Acute posthemorrhagic anemia; L03.114 Cellulitis of left upper limb; T85.698A Other mechanical complication of other specified internal prosthetic devices, implants and grafts, initial encounter; D47.3 Essential (hemorrhagic) thrombocythemia; T80.89XA Other complications following infusion, transfusion and therapeutic injection, initial encounter; F17.210 Nicotine dependence, cigarettes, uncomplicated; E78.5 Hyperlipidemia, unspecified; B96.6 Bacteroides fragilis [B. fragilis] as the cause of diseases classified elsewhere
CPT/HCPCS: 36415; 36430; 49406; 74176; 74177; 80048; 80053; 80076; 81003; 81015; 83605; 83735; 84145; 85025; 85027; 85610; 85730; 86850; 86900; 86901; 87040; 87070; 87075; 87076; 87077; 87086; 87186; 87205; 94762; 96361; 96365; 96375; 99222; 99231; 99232; 99238; 99285; P9016; J0744; J1170; J1335; J2250; J2405; J2543; J3010; Q9967; S0077

== ENCOUNTER 2025-09-28 20:14 | Emergency (ER) | payer OTHER, SELFPAY ==
[2020-02-20 14:27] VITALS: BMI 25.5
[2025-09-28] VITALS (18 sets, daily range): BP systolic 128–162; BP diastolic 67–98; PULSE 69–87; RESP 21–29; TEMP 36.8; O2SAT 93–99; BMI 25.0
--- NOTE | 2025-09-28 20:19 | EKG_ITS ---
[facility]
[2025-09-28 20:28] LABS: Add Manual Diff / Slide Review NO; Hematocrit 35.7 % (41-53); Hemoglobin 12.5 g/dL (13.5-17.5); Lymphocytes Absolute Auto 1500 /uL (1100-4500); Mean Corpuscular HGB Conc 35.0 % (30-36); Mean Corpuscular Hemoglobin 32.6 PG (26-34); Mean Corpuscular Volume 93.4 fL (80-100); Platelet Count 358 X10^3/uL (150-400)
[2025-09-28 20:39] LABS: Lactate (Lactic Acid) 2.4 mmol/L (0.7-2.1)
[2025-09-28 20:41] LABS: Acetaminophen 27 ug/mL (10-30); Alanine Aminotransferase 29 IU/L (<50); Albumin 4.3 g/dL (3.5-5.0); Albumin Globulin Ratio 1.5 (1.0-2.8); Alkaline Phosphatase 94 U/L (38-126); Blood Urea Nitrogen 9 mg/dL (9-20); Calcium 8.6 mg/dL (8.4-10.2); Carbon Dioxide 16 mmol/L (22-32); Chloride 108 mmol/L (98-107); Estimated Glomerular Filt Rate > 60 mL/min (>60); Ethanol (ETOH) 271 mg/dL (<10); Globulin 2.8 g/dL (1.7-4.1); Glucose 93 mg/dL (70-99); HEMOLYSIS < 15 (0-50); Lipase 316 U/L (23-300); Magnesium 2.1 mg/dL (1.6-2.3); Potassium 4.1 mmol/L (3.4-5.1); Salicylate < 1.0 mg/dL (<20); Sodium 137 mmol/L (137-145); Total Protein 7.1 g/dL (6.3-8.2)
[2025-09-28 20:42] LABS: UR Morphine/Opiate cutoff 300 Negative (Negative); Ur Specific Gravity Normal (Normal); Urine Tetrahydrocannabinol Positive (Negative)
[2025-09-28 20:43] LABS: Urine MDMA Negative (Negative); Urine Methamphetamines Negative (Negative); Urine Tricyclic Antidepressant Negative (Negative)
--- NOTE | 2025-09-28 20:44 | ED.OVERDOSE ---
HPI - Overdose <Eloisa Mcintyre DO - Last Filed: 10/01/25 13:31> General Chief Complaint: Toxicology Problem Stated Complaint: accidental OD Time Seen by Provider: 09/28/25 20:18 Source: patient and EMS Mode of arrival: EMS History of Present Illness HPI Narrative: Patient is a 65-year-old male history of anxiety on Lexapro presenting today with accidental overdose. He is followed by PCP at [facility] he has been titrating his Lexapro off because he feels like it is not working any longer. Isiah who is feeling very anxious he drank half a bottle of NyQuil took 0.5 mg of lorazepam has 2 beers to marijuana gummies. He was trying to come back his anxiety he has no suicidal ideations. He is still feeling anxious. Related Data Home Medications ?Medication ?Instructions ?Recorded ?Confirmed atorvastatin 40 mg tablet 40 mg PO DAILY 01/30/20 03/20/21 aspirin 325 mg tablet 650 mg PO Q4-6H PRN Pain (Scale 02/20/20 02/20/20 Score 1-3) Allergies Allergy/AdvReac Type Severity Reaction Status Date / Time Iodinated Contrast Media Allergy Hypotension Verified 09/28/25 20:24 Patient History <Eloisa Mcintyre DO - Last Filed: 10/01/25 13:31> Medical History (Updated 09/29/25 @ 00:35 by Arnaud Paredes DO) Perforated appendicitis Social History household members: spouse Smoking Status: Current some day smoker alcohol intake: never substance use type: marijuana Smoking Status: Current some day smoker tobacco type: cigarettes alcohol intake frequency: 0-2 drinks per day Alcohol type: other Exam <Eloisa Mcintyre DO - Last Filed: 10/01/25 13:31> Initial Vital Signs Initial Vital Signs: Vital Signs Pulse Rate 82 09/28/25 20:16 Pulse Oximetry 99 09/28/25 20:16 GENERAL: Alert well-appearing 65 year and in no acute distress. HEENT: Head atraumatic,EOMI, pupils reactive, face symmetric, moist mucous membranes CARDIOVASCULAR: Regular rate and rhythm without murmurs, rubs or gallops. RESPIRATORY: Breath sounds equal bilaterally, no wheezes rales or rhonchi. ABDOMEN: Soft, nontender. Normoactive bowel sounds all 4 quadrants. No guarding or rebound. EXTREMITIES: Normal range of motion, no clubbing or edema. Neurovascularly intact NEUROLOGICAL: Alert and oriented x4.Normal gait and speech. Cranial nerves II through XII grossly intact. SKIN: Warm, dry, no laceration, no petechiae, no rashes or lesions. <Arnaud Paredes, DO - Last Filed: 09/29/25 02:14> Initial Vital Signs Initial Vital Signs: Vital Signs Pulse Rate 82 09/28/25 20:16 Pulse Oximetry 99 09/28/25 20:16 Course <Eloisa Miguelina, DO - Last Filed: 10/01/25 13:31> Orders Ordered: Discontinued Medications Sodium Chloride (Normal Saline 0.9%) 1,000 mls @ 1,000 mls/hr IV BOLUS ONE Stop: 09/28/25 21:43 Last Infusion: 09/28/25 22:28 Dose: Infused Documented By: Admin: 09/28/25 21:05 Dose: 1,000 mls/hr Documented By: ROBBIE Sodium Chloride (Normal Saline 0.9%) 1,000 mls @ 1,000 mls/hr IV BOLUS ONE Stop: 09/29/25 00:33 Last Infusion: 09/29/25 01:02 Dose: Infused Documented By: Admin: 09/28/25 23:54 Dose: 1,000 mls/hr Documented By: ADAM Lorazepam (Lorazepam 2 Mg/Ml Inj) 1 mg IV NOW ONE Stop: 09/28/25 21:27 Last Admin: 09/28/25 21:45 Dose: 1 mg Documented By: CHELSY Vital Signs Vital signs: Vital Signs - 8 hr 09/28/25 20:16 09/28/25 20:17 09/28/25 20:17 Temperature Pulse Rate 82 81 Respiratory Rate 27 H Blood Pressure 161/91 H Pulse Oximetry 99 99 Oxygen Delivery Method 09/28/25 20:24 09/28/25 20:29 09/28/25 20:30 Temperature 98.3 F Pulse Rate 81 87 Respiratory Rate 25 H 26 H Blood Pressure 161/91 H 162/96 H Pulse Oximetry 99 98 Oxygen Delivery Method Room Air Room Air 09/28/25 20:30 09/28/25 20:45 09/28/25 20:45 Temperature Pulse Rate 83 72 Respiratory Rate 26 H 21 Blood Pressure 138/81 Pulse Oximetry 98 99 Oxygen Delivery Method 09/28/25 21:00 09/28/25 21:00 09/28/25 21:15 Temperature Pulse Rate 72 Respiratory Rate 23 Blood Pressure 148/89 H 150/92 H Pulse Oximetry 97 Oxygen Delivery Method 09/28/25 21:15 09/28/25 21:30 09/28/25 21:30 Temperature Pulse Rate 75 72 Respiratory Rate 23 26 H Blood Pressure 143/87 H Pulse Oximetry 99 98 Oxygen Delivery Method 09/28/25 21:45 09/28/25 21:45 09/28/25 22:00 Temperature Pulse Rate 74 Respiratory Rate 23 Blood Pressure 156/98 H 149/89 H Pulse Oximetry 98 Oxygen Delivery Method Room Air 09/28/25 22:00 09/28/25 22:15 09/28/25 22:15 Temperature Pulse Rate 69 82 Respiratory Rate 29 H 29 H Blood Pressure 149/93 H Pulse Oximetry 98 98 Oxygen Delivery Method 09/28/25 22:30 09/28/25 22:30 09/28/25 22:45 Temperature Pulse Rate 71 Respiratory Rate 25 H Blood Pressure 158/84 H 158/83 H Pulse Oximetry 98 Oxygen Delivery Method 09/28/25 22:45 09/28/25 23:00 09/28/25 23:00 Temperature Pulse Rate 75 74 Respiratory Rate 21 22 Blood Pressure 150/88 H Pulse Oximetry 99 93 Oxygen Delivery Method 09/28/25 23:15 09/28/25 23:15 09/28/25 23:30 Temperature Pulse Rate 78 Respiratory Rate 22 Blood Pressure 153/88 H 128/67 Pulse Oximetry 94 Oxygen Delivery Method 09/28/25 23:30 09/28/25 23:45 09/28/25 23:45 Temperature Pulse Rate 81 83 Respiratory Rate 21 21 Blood Pressure 129/72 Pulse Oximetry 94 94 Oxygen Delivery Method <Arnaud Paredes DO - Last Filed: 09/29/25 02:14> Orders Ordered: Discontinued Medications Sodium Chloride (Normal Saline 0.9%) 1,000 mls @ 1,000 mls/hr IV BOLUS ONE Stop: 09/28/25 21:43 Last Infusion: 09/28/25 22:28 Dose: Infused Documented By: Admin: 09/28/25 21:05 Dose: 1,000 mls/hr Documented By: ROBBIE Sodium Chloride (Normal Saline 0.9%) 1,000 mls @ 1,000 mls/hr IV BOLUS ONE Stop: 09/29/25 00:33 Last Infusion: 09/29/25 01:02 Dose: Infused Documented By: Admin: 09/28/25 23:54 Dose: 1,000 mls/hr Documented By: ADAM Lorazepam (Lorazepam 2 Mg/Ml Inj) 1 mg IV NOW ONE Stop: 09/28/25 21:27 Last Admin: 09/28/25 21:45 Dose: 1 mg Documented By: CHELSY Vital Signs Vital signs: Vital Signs - 8 hr 09/28/25 20:16 09/28/25 20:17 09/28/25 20:17 Temperature Pulse Rate 82 81 Respiratory Rate 27 H Blood Pressure 161/91 H Pulse Oximetry 99 99 Oxygen Delivery Method 09/28/25 20:24 09/28/25 20:29 09/28/25 20:30 Temperature 98.3 F Pulse Rate 81 87 Respiratory Rate 25 H 26 H Blood Pressure 161/91 H 162/96 H Pulse Oximetry 99 98 Oxygen Delivery Method Room Air Room Air 09/28/25 20:30 09/28/25 20:45 09/28/25 20:45 Temperature Pulse Rate 83 72 Respiratory Rate 26 H 21 Blood Pressure 138/81 Pulse Oximetry 98 99 Oxygen Delivery Method 09/28/25 21:00 09/28/25 21:00 09/28/25 21:15 Temperature Pulse Rate 72 Respiratory Rate 23 Blood Pressure 148/89 H 150/92 H Pulse Oximetry 97 Oxygen Delivery Method 09/28/25 21:15 09/28/25 21:30 09/28/25 21:30 Temperature Pulse Rate 75 72 Respiratory Rate 23 26 H Blood Pressure 143/87 H Pulse Oximetry 99 98 Oxygen Delivery Method 09/28/25 21:45 09/28/25 21:45 09/28/25 22:00 Temperature Pulse Rate 74 Respiratory Rate 23 Blood Pressure 156/98 H 149/89 H Pulse Oximetry 98 Oxygen Delivery Method Room Air 09/28/25 22:00 09/28/25 22:15 09/28/25 22:15 Temperature Pulse Rate 69 82 Respiratory Rate 29 H 29 H Blood Pressure 149/93 H Pulse Oximetry 98 98 Oxygen Delivery Method 09/28/25 22:30 09/28/25 22:30 09/28/25 22:45 Temperature Pulse Rate 71 Respiratory Rate 25 H Blood Pressure 158/84 H 158/83 H Pulse Oximetry 98 Oxygen Delivery Method 09/28/25 22:45 09/28/25 23:00 09/28/25 23:00 Temperature Pulse Rate 75 74 Respiratory Rate 21 22 Blood Pressure 150/88 H Pulse Oximetry 99 93 Oxygen Delivery Method 09/28/25 23:15 09/28/25 23:15 09/28/25 23:30 Temperature Pulse Rate 78 Respiratory Rate 22 Blood Pressure 153/88 H 128/67 Pulse Oximetry 94 Oxygen Delivery Method 09/28/25 23:30 09/28/25 23:45 09/28/25 23:45 Temperature Pulse Rate 81 83 Respiratory Rate 21 21 Blood Pressure 129/72 Pulse Oximetry 94 94 Oxygen Delivery Method MDM - Overdose <Eloisa Mcnityre, DO - Last Filed: 10/01/25 13:31> Lab Data 09/28/25 20:21 09/28/25 20:21 Labs: Lab Results 09/28/25 09/28/25 09/28/25 Range/Units 20:21 20:30 22:05 WBC 6.7 (4.5-11.0) X10^3/uL RBC 3.83 L (4.5-5.9) X10^6/uL Hgb 12.5 L (13.5-17.5) g/dL Hct 35.7 L (41-53) % MCV 93.4 (80-100) fL MCH 32.6 (26-34) PG MCHC 35.0 (30-36) % RDW 16.5 H (11.6-14.8) % Plt Count 358 (150-400) X10^3/uL Neut % (Auto) 70.0 (50-75) % Lymph % (Auto) 21.9 L (25-40) % [place] % (Auto) 6.4 (3-14) % Eos % (Auto) 0.8 L (2-4) % Baso % (Auto) 0.9 (0-2) % Neut # (Auto) 4700 (5094-7381) /uL Lymph # (Auto) 1500 (8774-8945) /uL [place] # (Auto) 400 (0-900) /uL Eos # (Auto) 100 (0-450) /uL Baso # (Auto) 100 (0-100) /uL Sodium 137 (137-145) mmol/L Potassium 4.1 (3.4-5.1) mmol/L Chloride 108 H (98-107) mmol/L Carbon Dioxide 16 L (22-32) mmol/L BUN 9 (9-20) mg/dL Creatinine 0.63 L (0.66-1.25) mg/dL Estimated GFR > 60 (>60) mL/min BUN/Creatinine Ratio 14.3 (6-22) Glucose 93 (70-99) mg/dL Lactate 2.4 H 2.4 H (0.7-2.1) mmol/L Calcium 8.6 (8.4-10.2) mg/dL Magnesium 2.1 (1.6-2.3) mg/dL Total Bilirubin 0.3 (0.2-1.3) mg/dL AST 40 (17-59) IU/L ALT 29 (<50) IU/L Alkaline Phosphatase 94 (38-126) U/L Troponin I < 0.012 (0.01-0.034) ng/mL Total Protein 7.1 (6.3-8.2) g/dL Albumin 4.3 (3.5-5.0) g/dL Globulin 2.8 (1.7-4.1) g/dL Albumin/Globulin Ratio 1.5 (1.0-2.8) Lipase 316 H (23-300) U/L Salicylates < 1.0 (<20) mg/dL U Opiates 300ng/mL cut Negative (Negative) Ur Oxycodone Screen Negative (Negative) Urine Methadone Screen Negative (Negative) Acetaminophen 27 (10-30) ug/mL Ur Barbiturates Screen Negative (Negative) U Tricyclic Antidepress Negative (Negative) Ur Phencyclidine Scrn Negative (Negative) Ur Amphetamines Screen Negative (Negative) U Methamphetamines Scrn Negative (Negative) Ur MDMA Scrn (Ecstasy) Negative (Negative) U Benzodiazepines Scrn Positive H (Negative) Urine Cocaine Screen Negative (Negative) U Marijuana (THC) Screen Positive H (Negative) Urine pH Normal (Normal) Urine Specific [place] Normal (Normal) Ethyl Alcohol 271 H (<10) mg/dL Ur Creatinine Normal (Normal) 09/29/25 Range/Units 00:32 WBC (4.5-11.0) X10^3/uL RBC (4.5-5.9) X10^6/uL Hgb (13.5-17.5) g/dL Hct (41-53) % MCV (80-100) fL MCH (26-34) PG MCHC (30-36) % RDW (11.6-14.8) % Plt Count (150-400) X10^3/uL Neut % (Auto) (50-75) % Lymph % (Auto) (25-40) % [place] % (Auto) (3-14) % Eos % (Auto) (2-4) % Baso % (Auto) (0-2) % Neut # (Auto) (4331-8829) /uL Lymph # (Auto) (6458-6990) /uL [place] # (Auto) (0-900) /uL Eos # (Auto) (0-450) /uL Baso # (Auto) (0-100) /uL Sodium (137-145) mmol/L Potassium (3.4-5.1) mmol/L Chloride (98-107) mmol/L Carbon Dioxide (22-32) mmol/L BUN (9-20) mg/dL Creatinine (0.66-1.25) mg/dL Estimated GFR (>60) mL/min BUN/Creatinine Ratio (6-22) Glucose (70-99) mg/dL Lactate (0.7-2.1) mmol/L Calcium (8.4-10.2) mg/dL Magnesium (1.6-2.3) mg/dL Total Bilirubin (0.2-1.3) mg/dL AST (17-59) IU/L ALT (<50) IU/L Alkaline Phosphatase (38-126) U/L Troponin I (0.01-0.034) ng/mL Total Protein (6.3-8.2) g/dL Albumin (3.5-5.0) g/dL Globulin (1.7-4.1) g/dL Albumin/Globulin Ratio (1.0-2.8) Lipase (23-300) U/L Salicylates (<20) mg/dL U Opiates 300ng/mL cut (Negative) Ur Oxycodone Screen (Negative) Urine Methadone Screen (Negative) Acetaminophen < 10 (10-30) ug/mL Ur Barbiturates Screen (Negative) U Tricyclic Antidepress (Negative) Ur Phencyclidine Scrn (Negative) Ur Amphetamines Screen (Negative) U Methamphetamines Scrn (Negative) Ur MDMA Scrn (Ecstasy) (Negative) U Benzodiazepines Scrn (Negative) Urine Cocaine Screen (Negative) U Marijuana (THC) Screen (Negative) Urine pH (Normal) Urine Specific [place] (Normal) Ethyl Alcohol (<10) mg/dL Ur Creatinine (Normal) Urine Dip Bedside Urine Glucose Negative Bedside Urine Bilirubin - Negative Bedside Urine Ketone - Negative Urine Specific [place] 1.010 Bedside Urine Occult Blood - Negative Bedside Urine pH 6.0 Bedside Urine Protein - Negative Bedside Urine Urobilinogen - Negative Bedside Urine Nitrite - Negative Bedside Urine Leukocytes - Negative Esterase ECG Data Interpretation: Sinus rhythm rate 79 MN interval 152 QRS [address] changes Q-wave noted in lead 3 MDM Narrative Medical decision making narrative: MDM CC: Overdose Complicating co-morbidities: Anxiety Data collected from: Patient EMS Medical records reviewed: No records since 2020 Differential considered: Intentional versus accidental overdose polysubstance use and abuse Exam documented above, pertinent findings include: Patient is anxious he has urinary incontinence he is awake alert cooperative Lab Test results independently reviewed as above. Pertinent findings: Alcohol level 271 Positive for benzodiazepine and marijuana Tylenol level 27, salicylate level negative Lactate 2.4 with repeat 2.4 Bicarb is 16 other electrolytes within normal limits sodium 7 potassium 4.1 chloride 108 creatinine 0.6 Troponin negative Bilirubin liver enzymes within normal limits CBC no leukocytosis no anemia Independently reviewed EKG as above sinus rhythm rate no ischemia no arrhythmia Imaging studies independently reviewed: Consultations: [ ] Treatments: IV fluids in the regular can Re-evaluations: [ ] Discussion: Patient is 65-year-old male presenting today with anxiety unintentional overdose. He has alcohol level of 271 Tylenol is 27. Doing a repeat Tylenol level. Patient signed out to Dr. Paredes for further disposition 2300: Patient was signed out to me by Dr. Gardner, initial lab work EKG unremarkable with the exception of elevated alcohol, poison control was consulted recommending observation until 1 in the morning. 4 hour repeat Tylenol level ordered, is here at bedside, did discuss plan that so long as patient's repeat Tylenol down trending and no acute changes occur before observation timeframe patient states feels comfortable being discharged home with , also agrees with this plan. We will continue to evaluate and monitor here in the emergency department. 0213: Patient re-evaluated, was sleeping in the stretcher was able to be aroused no focal deficits at bedside present, informed them of repeat Tylenol level negative, they feel comfortable taking the patient home. <Arnaud Paredes, DO - Last Filed: 09/29/25 02:14> Lab Data Labs: Lab Results 09/28/25 09/28/25 09/28/25 Range/Units 20:21 20:30 22:05 WBC 6.7 (4.5-11.0) X10^3/uL RBC 3.83 L (4.5-5.9) X10^6/uL Hgb 12.5 L (13.5-17.5) g/dL Hct 35.7 L (41-53) % MCV 93.4 (80-100) fL MCH 32.6 (26-34) PG MCHC 35.0 (30-36) % RDW 16.5 H (11.6-14.8) % Plt Count 358 (150-400) X10^3/uL Neut % (Auto) 70.0 (50-75) % Lymph % (Auto) 21.9 L (25-40) % [place] % (Auto) 6.4 (3-14) % Eos % (Auto) 0.8 L (2-4) % Baso % (Auto) 0.9 (0-2) % Neut # (Auto) 4700 (5171-5636) /uL Lymph # (Auto) 1500 (8044-2605) /uL [place] # (Auto) 400 (0-900) /uL Eos # (Auto) 100 (0-450) /uL Baso # (Auto) 100 (0-100) /uL Sodium 137 (137-145) mmol/L Potassium 4.1 (3.4-5.1) mmol/L Chloride 108 H (98-107) mmol/L Carbon Dioxide 16 L (22-32) mmol/L BUN 9 (9-20) mg/dL Creatinine 0.63 L (0.66-1.25) mg/dL Estimated GFR > 60 (>60) mL/min BUN/Creatinine Ratio 14.3 (6-22) Glucose 93 (70-99) mg/dL Lactate 2.4 H 2.4 H (0.7-2.1) mmol/L Calcium 8.6 (8.4-10.2) mg/dL Magnesium 2.1 (1.6-2.3) mg/dL Total Bilirubin 0.3 (0.2-1.3) mg/dL AST 40 (17-59) IU/L ALT 29 (<50) IU/L Alkaline Phosphatase 94 (38-126) U/L Troponin I < 0.012 (0.01-0.034) ng/mL Total Protein 7.1 (6.3-8.2) g/dL Albumin 4.3 (3.5-5.0) g/dL Globulin 2.8 (1.7-4.1) g/dL Albumin/Globulin Ratio 1.5 (1.0-2.8) Lipase 316 H (23-300) U/L Salicylates < 1.0 (<20) mg/dL U Opiates 300ng/mL cut Negative (Negative) Ur Oxycodone Screen Negative (Negative) Urine Methadone Screen Negative (Negative) Acetaminophen 27 (10-30) ug/mL Ur Barbiturates Screen Negative (Negative) U Tricyclic Antidepress Negative (Negative) Ur Phencyclidine Scrn Negative (Negative) Ur Amphetamines Screen Negative (Negative) U Methamphetamines Scrn Negative (Negative) Ur MDMA Scrn (Ecstasy) Negative (Negative) U Benzodiazepines Scrn Positive H (Negative) Urine Cocaine Screen Negative (Negative) U Marijuana (THC) Screen Positive H (Negative) Urine pH Normal (Normal) Urine Specific [place] Normal (Normal) Ethyl Alcohol 271 H (<10) mg/dL Ur Creatinine Normal (Normal) 09/29/25 Range/Units 00:32 WBC (4.5-11.0) X10^3/uL RBC (4.5-5.9) X10^6/uL Hgb (13.5-17.5) g/dL Hct (41-53) % MCV (80-100) fL MCH (26-34) PG MCHC (30-36) % RDW (11.6-14.8) % Plt Count (150-400) X10^3/uL Neut % (Auto) (50-75) % Lymph % (Auto) (25-40) % [place] % (Auto) (3-14) % Eos % (Auto) (2-4) % Baso % (Auto) (0-2) % Neut # (Auto) (9018-7244) /uL Lymph # (Auto) (5002-9162) /uL [place] # (Auto) (0-900) /uL Eos # (Auto) (0-450) /uL Baso # (Auto) (0-100) /uL Sodium (137-145) mmol/L Potassium (3.4-5.1) mmol/L Chloride (98-107) mmol/L Carbon Dioxide (22-32) mmol/L BUN (9-20) mg/dL Creatinine (0.66-1.25) mg/dL Estimated GFR (>60) mL/min BUN/Creatinine Ratio (6-22) Glucose (70-99) mg/dL Lactate (0.7-2.1) mmol/L Calcium (8.4-10.2) mg/dL Magnesium (1.6-2.3) mg/dL Total Bilirubin (0.2-1.3) mg/dL AST (17-59) IU/L ALT (<50) IU/L Alkaline Phosphatase (38-126) U/L Troponin I (0.01-0.034) ng/mL Total Protein (6.3-8.2) g/dL Albumin (3.5-5.0) g/dL Globulin (1.7-4.1) g/dL Albumin/Globulin Ratio (1.0-2.8) Lipase (23-300) U/L Salicylates (<20) mg/dL U Opiates 300ng/mL cut (Negative) Ur Oxycodone Screen (Negative) Urine Methadone Screen (Negative) Acetaminophen < 10 (10-30) ug/mL Ur Barbiturates Screen (Negative) U Tricyclic Antidepress (Negative) Ur Phencyclidine Scrn (Negative) Ur Amphetamines Screen (Negative) U Methamphetamines Scrn (Negative) Ur MDMA Scrn (Ecstasy) (Negative) U Benzodiazepines Scrn (Negative) Urine Cocaine Screen (Negative) U Marijuana (THC) Screen (Negative) Urine pH (Normal) Urine Specific [place] (Normal) Ethyl Alcohol (<10) mg/dL Ur Creatinine (Normal) Urine Dip Bedside Urine Glucose Negative Bedside Urine Bilirubin - Negative Bedside Urine Ketone - Negative Urine Specific [place] 1.010 Bedside Urine Occult Blood - Negative Bedside Urine pH 6.0 Bedside Urine Protein - Negative Bedside Urine Urobilinogen - Negative Bedside Urine Nitrite - Negative Bedside Urine Leukocytes - Negative Esterase MDM Narrative Medical decision making narrative: LORRAINE CC: Overdose Complicating co-morbidities: Anxiety Data collected from: Patient EMS Medical records reviewed: No records since 2020 Differential considered: Intentional versus accidental overdose polysubstance use and abuse Exam documented above, pertinent findings include: Patient is anxious he has urinary incontinence he is awake alert cooperative Lab Test results independently reviewed as above. Pertinent findings: Alcohol level 271 Positive for benzodiazepine and marijuana Tylenol level 27, salicylate level negative Lactate 2.4 with repeat 2.4 Bicarb is 16 other electrolytes within normal limits sodium 7 potassium 4.1 chloride 108 creatinine 0.6 Troponin negative Bilirubin liver enzymes within normal limits CBC no leukocytosis no anemia Independently reviewed EKG as above sinus rhythm rate no ischemia no arrhythmia Imaging studies independently reviewed: Consultations: [ ] Treatments: IV fluids in the regular can Re-evaluations: [ ] Discussion: Patient is 65-year-old male presenting today with anxiety unintentional overdose. He has alcohol level of 271 Tylenol is 27. Doing a repeat Tylenol level. Patient signed out to Dr. Mijares for further disposition 2300: Patient was signed out to me by Dr. Gardner, initial lab work EKG unremarkable with the exception of elevated alcohol, poison control was consulted recommending observation until 1 in the morning. 4 hour repeat Tylenol level ordered, is here at bedside, did discuss plan that so long as patient's repeat Tylenol down trending and no acute changes occur before observation timeframe patient states feels comfortable being discharged home with , also agrees with this plan. We will continue to evaluate and monitor here in the emergency department. 0213: Patient re-evaluated, was sleeping in the stretcher was able to be aroused no focal deficits at bedside present, informed them of repeat Tylenol level negative, they feel comfortable taking the patient home. Naloxone at Discharge Meets criteria for naloxone at discharge?: No Discharge Plan Departure Patient Disposition: Home Clinical Impression: Drug overdose, intentional Instructions: DI for Drug Overdose in Adults Activity Restrictions/Additional Instructions: Please follow up with the primary care doctor Please read the discharge instructions sheet carefully and bring all papers to all doctor follow-up visits, as it may contain information that your doctor may want to see. Disease processes change and evolve, if your symptoms worsen or if you develop any new symptoms that are concerning to you please return for evaluation. Your evaluation today does not show any evidence of any life-threatening/serious illnesses requiring admission to the hospital or surgery. Please follow-up with your doctor for re-evaluation in approximately 1 day. Seek immediate medical attention for any worrisome symptoms. *If you do not have a primary care provider please contact the [facility] Resource line at [phone]. They will ask some questions about your medical history and help get you set up with a doctor in the community. Prescriptions: No Action atorvastatin 40 mg tablet 40 mg PO DAILY Patient Comments: TK 1 T PO QD aspirin 325 mg Tablet 650 mg PO Q4-6H PRN (Reason: Pain (Scale Score 1-3)) Referrals: Barrera Sharma DO [Primary Care Provider, Family Practice] Stand Alone Forms: Patient Portal/API
--- NOTE | 2025-09-28 20:45 | PC.NURSE ---
Per pt, he ingested 1/2 bottle of nyquil, 0.5mg ativan and two cannabis gummies around 15:00 today. Pt has a Ethanol level of 271. Poison control was called and recommends supportive care, observation for 6 hrs, and repeat EKG prior to dischage. MD bunn.
[2025-09-28 20:52] LABS: Troponin I < 0.012 ng/mL (0.01-0.034)
[2025-09-28] MEDS: SODIUM CHLORIDE 0.9% 1,000 ML 1000 ML IV ×2 (21:05→23:54)
--- NOTE | 2025-09-28 21:41 | PC.NURSE ---
DRUG COUNSELOR note: 2134 Patient began to yell profanity in room. Fuck! Fuck! was heard from nurse's station. I went into the room and asked patient what was going on. Patient said I'm having a fucking panic attack. I need fucking ativan. I said First you don't cuss at me. That's aggressive language and we don't do that here. Second I've told your nurse and doctor you want ativan. Patient apologized for cussing but that I'm having a panic attack. I told him I understand and would tell his nurse. As I was telling his nurse, patient's called to speak to the nurse. As that call was happening [employer] 911 dispatch called saying patient Roldan Cortés called needing a nurse and was cussing at them. I said We know. Thanked him. I went into patient's room and said that [employer] called and by calling dispatch when you are in an ED bed gums up the system. Patient explained he needed a nurse. I told him I would chat with his nurse again.
[2025-09-28 21:59] LABS: Reflexed Lactate in 2 Hours Y
[2025-09-28 22:23] LABS: Lactate 2HR (Lactic Acid Rflx) 2.4 mmol/L (0.7-2.1)
--- NOTE | 2025-09-28 23:20 | PC.NURSE ---
Pt resting quietly with eyes closed, resps even and not labored. No distress noted at this time. Pt rouses easily to verbal stimuli and engages appropriately with RN upon entrance into exam room. arrives in department and at pt bedside at this time. Continued plan of care discussed at this time. No further requests or concerns at this time. Pt remains connected to cardiac, resp, blood pressure, and pulse ox monitors with alarms on and audible. VS stable at this time. Call light within reach.
--- NOTE | 2025-09-28 23:41 | PC.NURSE ---
OK per Dr. Paredes for pt to take night doses of home meds- Lexapro, atorvastatin, gabapentin, and lisinopril.
[2025-09-29] VITALS (10 sets, daily range): BP systolic 116–160; BP diastolic 63–90; PULSE 75–84; RESP 17–20; O2SAT 93–97
[2025-09-29 00:48] LABS: Acetaminophen < 10 ug/mL (10-30)
--- NOTE | 2025-09-29 01:30 | PC.NURSE ---
No change in patient condition or status. Pt resting quietly with eyes closed, resps even and not labored. No distress noted at this time. Pt remains connected to cardiac, resp, blood pressure, and pulse ox with alarms on and audible. VS stable at this time. Call light within reach. remains at bedside.
== END 2025-09-29 02:33 | disposition home or self-care (01) ==
PROVIDERS: Emergency Medicine; Emergency Provider Student in an Organized Health Care Education/Training Program; PCP Family Medicine
DX: T50.991A Poisoning by other drugs, medicaments and biological substances, accidental (unintentional), initial encounter (principal)
CPT/HCPCS: 36415; 80053; 80305; 80320; 80329; 81003; 83605; 83690; 83735; 84484; 85025; 93005; 96361; 96374; 99284; G0480; J2060; J7030